=== PATIENT | male | born 1945 | race African-American/Black ===

== ENCOUNTER → 2017-12-13 | Outpatient (CLI) | payer MEDICARE ==
[2017-12-13 13:03] LABS: FREE T4 (FREE THYROXINE) 0.95 ng/dL (0.78-2.19)
[2017-12-13 13:17] LABS: THYROID STIMULATING HORMONE 6.42 uIU/mL (0.47-4.68)
== END ==
LOC: OD 11:52
PROVIDERS: ATTEND Family Medicine
DX: E03.9 Hypothyroidism, unspecified (principal)
CPT/HCPCS: 36415; 84439; 84443

== ENCOUNTER 2018-06-14 11:27 | Emergency (ER) | payer MEDICARE, MEDICAID ==
[2018-06-14] MEDS ORDERED: OXYCODONE-ACETAMINOPHEN 5-325 MG TABLET PO ONE (12:09)
--- NOTE | 2018-06-14 12:10 | ER Document Report ---
ED Medical Screen (RME) - General Chief Complaint: Penile Problem Stated Complaint: PENILE PAIN/SWELLING Time Seen by Provider: 06/14/18 12:08 Notes: 73 years old male presents today with incontinence of urine and swelling of the penile gland for the last few days. No fever chills. On examination-balanitis noted with swelling of the penile gland with ulceration. And also prepuce is edematous, TRAVEL OUTSIDE OF THE [place] IN LAST 30 DAYS: No - Related Data Allergies/Adverse Reactions: No Known Allergies Allergy (Verified 06/14/18 11:27) Past Medical History - Social History Chew tobacco use (# tins/day): No Frequency of alcohol use: None Drug Abuse: None - Past Medical History Cardiac Medical History: Reports: Hx Hypertension Endocrine Medical History: Reports: Hx Diabetes Mellitus Type 2 Renal/ Medical History: Denies: Hx Peritoneal Dialysis Past Surgical History: Reports: Hx Thyroid Surgery - goiter removed Physical Exam - Vital signs Vitals: Temp Pulse Resp BP Pulse Ox 97.7 F 61 20 150/83 H 93 06/14/18 11:38 06/14/18 11:38 06/14/18 11:38 06/14/18 11:38 06/14/18 11:38 Course - Vital Signs Vital signs: Temp Pulse Resp BP Pulse Ox 97.7 F 61 20 150/83 H 93 06/14/18 11:38 06/14/18 11:38 06/14/18 11:38 06/14/18 11:38 06/14/18 11:38 Doctor's Discharge - Discharge Referrals: SHAQ HANCOCK DO [Primary Care Provider] - Follow up as needed
[2018-06-14 13:37] LABS: ABSOLUTE BASOPHILS # (AUTO) 0.1 10^3/uL (0.0-0.2); ABSOLUTE EOSINOPHILS # (AUTO) 0.2 10^3/uL (0.0-0.6); ABSOLUTE LYMPHOCYTES (AUTO) 1.2 10^3/uL (0.5-4.7); ABSOLUTE MONOCYTES (AUTO) 0.4 10^3/uL (0.1-1.4); ABSOLUTE NEUT (AUTO) 5.4 10^3/uL (1.7-8.2); BASOPHILS % (AUTO) 0.8 % (0-2); HEMATOCRIT 44.1 % (37.9-51.0); HEMOGLOBIN 14.6 g/dL (13.5-17.0); MEAN CORPUSCULAR HEMOGLOBIN 28.1 pg (27.0-33.4); MEAN CORPUSCULAR HGB CONC 33.1 g/dL (32.0-36.0); MEAN CORPUSCULAR VOLUME 85 fl (80-97); MONOCYTES % (AUTO) 5.6 % (3-13); PLATELET COUNT 171 10^3/uL (150-450); RED BLOOD COUNT 5.19 10^6/uL (4.35-5.55); RED CELL DISTRIBUTION WIDTH 16.9 % (11.5-14.0); SEGMENTED NEUTROPHILS % (AUTO) 74.6 % (42-78); TOTAL CELLS COUNTED % (AUTO) 100 %; WHITE BLOOD COUNT 7.3 10^3/uL (4.0-10.5)
[2018-06-14 13:52] LABS: ALANINE AMINOTRANSFERASE 52 U/L (21-72); ALBUMIN 3.7 g/dL (3.5-5.0); ALKALINE PHOSPHATASE 146 U/L (38-126); ANION GAP 15 (5-19); ASPARTATE AMINO TRANSFERASE 27 U/L (17-59); BILIRUBIN,DIRECT 0.3 mg/dL (0.0-0.4); BILIRUBIN,TOTAL 0.5 mg/dL (0.2-1.3); BLOOD UREA NITROGEN 35 mg/dL (7-20); CALCIUM 9.2 mg/dL (8.4-10.2); CARBON DIOXIDE 24 mmol/L (22-30); CHLORIDE 104 mmol/L (98-107); GLUCOSE 213 mg/dL (75-110); POTASSIUM 4.1 mmol/L (3.6-5.0); SODIUM 143.3 mmol/L (137-145); TOTAL PROTEIN 7.6 g/dL (6.3-8.2)
[2018-06-14 15:28] LABS: APPEARANCE,URINE CLEAR; BILIRUBIN,URINE NEGATIVE (NEGATIVE); COLOR,URINE YELLOW; GLUCOSE, URINE >=500 mg/dL (NEGATIVE); KETONES,URINE NEGATIVE (NEGATIVE); LEUKOCYTE ESTERASE,URINE NEGATIVE (NEGATIVE); NITRITE,URINE NEGATIVE (NEGATIVE); PROTEIN,URINE 100 mg/dL (NEGATIVE); URINE SPECIFIC GRAVITY 1.021; UROBILINOGEN,URINE NEGATIVE mg/dL (<2.0)
[2018-06-14] MEDS ORDERED: FLUCONAZOLE 100 MG TABLET PO ONE (16:05)
[2018-06-14] MEDS ORDERED: NORMAL SALINE 500 ML IV ONE (16:30)
--- NOTE | 2018-06-14 16:32 | ER Document Report ---
ED General - General Chief Complaint: Penile Problem Stated Complaint: PENILE PAIN/SWELLING Time Seen by Provider: 06/14/18 12:08 TRAVEL OUTSIDE OF THE [place] IN LAST 30 DAYS: No - HPI Patient complains to provider of: Swelling penile pain Notes: Patient has history of diabetes coming in for swelling penile pain and urinary incontinence. Patient currently in the brief. Patient by himself upon my evaluation patient denies any pain at this time. States ongoing for the last 2 days. Denies any fever chills nausea vomiting diarrhea. Denies any trouble urinating. - Related Data Allergies/Adverse Reactions: No Known Allergies Allergy (Verified 06/14/18 11:27) Past Medical History - Social History Smoking Status: Former Smoker Chew tobacco use (# tins/day): No Frequency of alcohol use: None Drug Abuse: None Family History: Reviewed & Not Pertinent Patient has suicidal ideation: No Patient has homicidal ideation: No - Past Medical History Cardiac Medical History: Reports: Hx Hypertension Endocrine Medical History: Reports: Hx Diabetes Mellitus Type 2 Renal/ Medical History: Denies: Hx Peritoneal Dialysis Past Surgical History: Reports: Hx Thyroid Surgery - goiter removed Review of Systems - Review of Systems Constitutional: No symptoms reported EENT: No symptoms reported Cardiovascular: No symptoms reported Respiratory: No symptoms reported Gastrointestinal: No symptoms reported Genitourinary: Other - Penile swelling and pain Male Genitourinary: No symptoms reported Musculoskeletal: No symptoms reported Skin: No symptoms reported Hematologic/Lymphatic: No symptoms reported Neurological/Psychological: No symptoms reported -: Yes All other systems reviewed and negative Physical Exam - Vital signs Vitals: Temp Pulse Resp BP Pulse Ox 97.7 F 61 20 150/83 H 93 06/14/18 11:38 06/14/18 11:38 06/14/18 11:38 06/14/18 11:38 06/14/18 11:38 Interpretation: Normal - General General appearance: Appears well, Alert - HEENT Head: Normocephalic, Atraumatic Eyes: Normal Pupils: PERRL - Respiratory Respiratory status: No respiratory distress Chest status: Nontender Breath sounds: Normal Chest palpation: Normal - Cardiovascular Rhythm: Regular Heart sounds: Normal auscultation Murmur: No - Abdominal Inspection: Normal Distension: No distension Bowel sounds: Normal Tenderness: Nontender Organomegaly: No organomegaly - Genitourinary Notes: Swelling adjacent to the glans of the head of the penis. Patient is circumcised. There is a mild amount of white discharge around the rim of the glans of the penis consistent with a yeast infection balanitis. Cremaster reflex intact bilaterally. There are some excoriations of the skin on the head of the penis - Back Back: Normal, Nontender - Extremities General upper extremity: Normal inspection, Nontender, Normal color, Normal ROM , Normal temperature General lower extremity: Normal inspection, Nontender, Normal color, Normal ROM , Normal temperature, Normal weight bearing. No: Sepideh's sign - Neurological Neuro grossly intact: Yes Cognition: Normal Orientation: AAOx4 [place] Coma Scale Eye Opening: Spontaneous [place] Coma Scale Verbal: Oriented [place] Coma Scale Motor: Obeys Commands [place] Coma Scale Total: 15 Speech: Normal Motor strength normal: LUE, RUE, LLE, RLE Sensory: Normal - Psychological Associated symptoms: Normal affect, Normal mood - Skin Skin Temperature: Warm Skin Moisture: Dry Skin Color: Normal Course - Re-evaluation Re-evalutation: 06/14/18 23:06 Laboratory studies shows increase in the patient's renal function from his last visit here in 2015. Family member at bedside now neurologist patient has a history of renal issues and states that they will follow-up with her primary care physician. Patient examination otherwise consistent with balanitis with swelling. Patient is circumcised no signs of phimosis paraphimosis or any ischemia of the glans of the penis. Patient will be discharged home - Vital Signs Vital signs: Temp Pulse Resp BP Pulse Ox 97.6 F 63 18 183/99 H 100 06/14/18 18:26 06/14/18 18:26 06/14/18 18:26 06/14/18 18:26 06/14/18 18:26 - Laboratory Result Diagrams: 06/14/18 13:17 06/14/18 13:17 Laboratory results interpreted by me: 06/14/18 06/14/18 06/14/18 13:17 13:17 15:00 RDW 16.9 H BUN 35 H Creatinine 2.45 H Est GFR ( Amer) 31 L Est GFR (Non-Af Amer) 26 L Glucose 213 H Alkaline Phosphatase 146 H Urine Protein 100 H Urine Glucose (UA) >=500 H Urine Blood SMALL H Discharge - Discharge Clinical Impression: Balanitis Acute on chronic renal failure Qualifiers: Acute renal failure type: unspecified Chronic kidney disease stage: unspecified stage Qualified Code(s): N17.9 - Acute kidney failure, unspecified Disposition: HOME, SELF-CARE Instructions: Balanitis ([facility]), Kidney Failure ([facility]) Additional Instructions: Please use the cream as prescribed. Will recommend he follow-up with your primary care physician or urologist listed. Return to the ER if he is unable to urinate. Prescriptions: Clotrimazole 1% Topical [Lotrimin 1% Topical Soln 10 ml] 1 applic TP BID #10 ml Referrals: SHAQ HANCOCK DO [Primary Care Provider] - Follow up as needed
[2018-06-14 18:31] VITALS: BP 183/99
== END 2018-06-14 18:34 | disposition home or self-care (01) ==
LOC: ER 11:27
DX: N48.1 Balanitis (principal); E11.22 Type 2 diabetes mellitus with diabetic chronic kidney disease; I12.9 Hypertensive chronic kidney disease with stage 1 through stage 4 chronic kidney disease, or unspecified chronic kidney disease; N18.9 Chronic kidney disease, unspecified; N17.9 Acute kidney failure, unspecified; R32 Unspecified urinary incontinence; Z87.891 Personal history of nicotine dependence
CPT/HCPCS: 99284; 96360; 51701; 36415; 85025; 80053; 81001; A9270 ×2; J7040

== ENCOUNTER 2018-11-06 10:32 | Inpatient (IN) | payer MEDICARE, MEDICAID ==
[2018-11-06 11:00] LABS: INTERNATIONAL RATION (INR) 0.98; PROTHROMBIN TIME 13.5 SEC (11.4-15.4)
--- NOTE | 2018-11-06 11:01 | ER Document Report ---
ED Syncope and Near Syncope - General Chief Complaint: Near Syncope Stated Complaint: SYNCOPE Time Seen by Provider: 11/06/18 10:45 Mode of Arrival: Medic Information source: Patient, Relative Notes: 73-year-old male brought to emergency department by EMS status post syncopal episode. Family states that he was standing up in the bathroom when his head fell forward. His family members were standing by his side and helped him to the ground. They state that he was unresponsive for a few seconds. Patient has a history of dementia. He denies any complaints currently. Patient does not re member the incident. Family deny any complaints prior to the syncopal episode. Family states that over the last 3 days he has not been as talkative as normal. They deny any fever, rhinorrhea, cough, nausea, vomiting, diarrhea, constipation. TRAVEL OUTSIDE OF THE [place] IN LAST 30 DAYS: No - HPI Patient complains to provider of: Fainting Episode witnessed (by whom): Yes Symptoms prior to episode: None Position/Activity at time of episode: Standing Quality of pain: No pain Context: Became unresponsive Injury location: None Current symptoms: None/feels back to normal Similar symptoms previously: No Recently seen / treated by doctor: No - Related Data Allergies/Adverse Reactions: No Known Allergies Allergy (Verified 11/06/18 11:38) Past Medical History - General Information source: Patient, Relative - Social History Smoking Status: Former Smoker Family History: Reviewed & Not Pertinent - Past Medical History Cardiac Medical History: Reports: Hx Hypertension Endocrine Medical History: Reports: Hx Diabetes Mellitus Type 2 Renal/ Medical History: Denies: Hx Peritoneal Dialysis Past Surgical History: Reports: Hx Thyroid Surgery - goiter removed Review of Systems - Review of Systems Constitutional: No symptoms reported EENT: No symptoms reported Cardiovascular: Syncope Respiratory: No symptoms reported Gastrointestinal: No symptoms reported Genitourinary: No symptoms reported Musculoskeletal: No symptoms reported Skin: No symptoms reported Neurological/Psychological: Lost consciousness -: Yes All other systems reviewed and negative Physical Exam - Vital signs Vitals: Temp Resp 97.8 F 18 11/06/18 10:53 11/06/18 10:53 - Notes Notes: PHYSICAL EXAMINATION: GENERAL: Well-appearing, well-nourished and in no acute distress. HEAD: Atraumatic, pleasantly demented. EYES: Pupils equal round and reactive to light, extraocular movements intact, sclera anicteric, conjunctiva are normal. ENT: Nares patent, oropharynx clear without exudates. Moist mucous membranes. NECK: Normal range of motion, supple without lymphadenopathy. No hematoma appreciated. LUNGS: Breath sounds clear to auscultation bilaterally and equal. No wheezes rales or rhonchi. HEART: Irregular. S1S2. ABDOMEN: Soft, nontender, nondistended abdomen. No guarding, no rebound. No masses appreciated. Musculoskeletal: Normal range of motion, no pitting or edema. No cyanosis. NEUROLOGICAL: Cranial nerves grossly intact. Normal speech. Normal sensory, motor exams PSYCH: Normal mood, normal affect. SKIN: Warm, Dry, normal turgor, no rashes or lesions noted. Course - Re-evaluation Re-evalutation: 11/06/18 11:01 EKG: Ventricular rate 67, QRS duration 94, QTc 503, atrial fibrillation. 11/06/18 19:23 Labs and imaging obtained. Head CT does not show an acute process. Patient's EKG shows atrial fibrillation. I asked family if there was a history of atrial fibrillation and they deny it. No previous EKGs to compare with. Troponin is 0.048. No previous values to compare this value with. Creatinine is elevated at 2.67. Slightly elevated from previous. Last value is 2.45. I contacted the history for admission for new onset atrial fibrillation. Dr. Gonzales accepts admission. 11/06/18 19:24 - Vital Signs Vital signs: Temp Pulse Resp BP Pulse Ox 97.7 F 50 L 18 130/81 H 99 11/06/18 16:04 11/06/18 17:40 11/06/18 16:02 11/06/18 16:04 11/06/18 16:02 - Laboratory Result Diagrams: 11/06/18 10:21 11/06/18 10:21 Laboratory results interpreted by me: 11/06/18 11/06/18 11/06/18 10:21 10:21 12:24 RDW 14.1 H BUN 37 H Creatinine 2.67 H Est GFR ( Amer) 28 L Est GFR (Non-Af Amer) 23 L Glucose 122 H ALT 20 L Urine Protein 100 H Urine Glucose (UA) >=500 H Discharge - Discharge Clinical Impression: Syncope Qualifiers: Syncope type: unspecified Qualified Code(s): R55 - Syncope and collapse Atrial fibrillation Qualifiers: Atrial fibrillation type: unspecified Qualified Code(s): I48.91 - Unspecified atrial fibrillation Condition: Stable Disposition: ADMITTED OBSERVATION Admitting Provider: Hospitalist Unit Admitted: Telemetry
[2018-11-06 11:13] LABS: ABSOLUTE EOSINOPHILS # (AUTO) 0.2 10^3/uL (0.0-0.6); ABSOLUTE LYMPHOCYTES (AUTO) 1.9 10^3/uL (0.5-4.7); ABSOLUTE MONOCYTES (AUTO) 0.6 10^3/uL (0.1-1.4); BASOPHILS % (AUTO) 0.6 % (0-2); EOSINOPHILS % (AUTO) 3.1 % (0-6); HEMOGLOBIN 15.7 g/dL (13.5-17.0); LYMPHOCYTES % (AUTO) 24.9 % (13-45); MEAN CORPUSCULAR HEMOGLOBIN 28.6 pg (27.0-33.4); MEAN CORPUSCULAR HGB CONC 33.5 g/dL (32.0-36.0); MEAN CORPUSCULAR VOLUME 85 fl (80-97); MONOCYTES % (AUTO) 7.5 % (3-13); PLATELET COUNT 192 10^3/uL (150-450); RED BLOOD COUNT 5.51 10^6/uL (4.35-5.55); RED CELL DISTRIBUTION WIDTH 14.1 % (11.5-14.0); SEGMENTED NEUTROPHILS % (AUTO) 63.9 % (42-78); TOTAL CELLS COUNTED % (AUTO) 100 %; WHITE BLOOD COUNT 7.8 10^3/uL (4.0-10.5)
[2018-11-06 11:14] LABS: ALANINE AMINOTRANSFERASE 20 U/L (21-72); ALBUMIN 3.6 g/dL (3.5-5.0); ALKALINE PHOSPHATASE 74 U/L (38-126); ANION GAP 13 (5-19); ASPARTATE AMINO TRANSFERASE 20 U/L (17-59); BILIRUBIN,DIRECT 0.2 mg/dL (0.0-0.4); BILIRUBIN,TOTAL 0.9 mg/dL (0.2-1.3); BLOOD UREA NITROGEN 37 mg/dL (7-20); CALCIUM 9.6 mg/dL (8.4-10.2); CARBON DIOXIDE 24 mmol/L (22-30); CHLORIDE 104 mmol/L (98-107); CREATINE KINASE 101 U/L (55-170); GLUCOSE 122 mg/dL (75-110); POTASSIUM 4.2 mmol/L (3.6-5.0); SODIUM 141.2 mmol/L (137-145); TOTAL PROTEIN 7.1 g/dL (6.3-8.2)
[2018-11-06 11:26] LABS: CREATINE KINASE MB 1.8 ng/mL (<4.55)
[2018-11-06 11:28] LABS: TROPONIN I 0.048 ng/mL
--- NOTE | 2018-11-06 11:52 | RADIOLOGY REPORT (SQ) ---
EXAM DESCRIPTION: CT HEAD WITHOUT COMPLETED DATE/TIME: 11/06/2018 11:35 am REASON FOR STUDY: confusion COMPARISON: None. TECHNIQUE: Axial images acquired through the brain without intravenous contrast. Images reviewed wi th bone, brain and subdural windows. Additional sagittal and coronal reconstructions were generated. Images stored on PACS. All CT scanners at this facility use dose modulation, iterative reconstruction, and/or weight based d osing when appropriate to reduce radiation dose to as low as reasonably achievable (ALARA). [facility]: Dose Right [facility]: CareDose [facility]: Dose Right [facility]: Teradose 4D [facility]: Ignyta RADIATION DOSE: CT Rad equipment meets quality standard of care and radiation dose reduction techniq ues were employed. CTDIvol: 53.2 mGy. DLP: 1044 mGy-cm. mGy. LIMITATIONS: None. FINDINGS: VENTRICLES: Normal size and contour. CEREBRUM: No masses. No hemorrhage. No midline shift. No evidence for acute infarction. Extensive areas of low density in the white matter most likely chronic small vessel ischemic changes. CEREBELLUM: No masses. No hemorrhage. No alteration of density. No evidence for acute infarction. EXTRAAXIAL SPACES: No fluid collections. No masses. ORBITS AND GLOBE: No intra- or extraconal masses. Normal contour of globe without masses. CALVARIUM: No fracture. PARANASAL SINUSES: No fluid or mucosal thickening. SOFT TISSUES: Possible soft tissue hematoma of the partially imaged posterior neck. OTHER: No other significant finding. IMPRESSION: 1. No acute intracranial pathology. Small vessel white matter disease. 2. Possible soft tissue hematoma or other subcutaneous abnormality of the partially imaged posterior neck. Correlate with physical examination. EVIDENCE OF ACUTE STROKE: NO. COMMENT: Quality ID # [id number]: Final reports with documentation of one or more dose reduction techniques (e.g., Automated exposure control, adjustment of the mA and/or kV according to patient size, use of iterative reconstruction technique) TECHNICAL DOCUMENTATION: JOB ID: [id number] [employer]- All Rights Reserved Reading location - IP/workstation name: [email or web address]
--- NOTE | 2018-11-06 11:53 | RADIOLOGY REPORT (SQ) ---
EXAM DESCRIPTION: CHEST SINGLE VIEW COMPLETED DATE/TIME: 11/06/2018 11:41 am REASON FOR STUDY: syncope COMPARISON: None. EXAM PARAMETERS: NUMBER OF VIEWS: One view. TECHNIQUE: Single frontal radiographic view of the chest acquired. RADIATION DOSE: NA LIMITATIONS: None. FINDINGS: LUNGS AND PLEURA: No opacities, masses or pneumothorax. No pleural effusion. MEDIASTINUM AND HILAR STRUCTURES: No masses. Contour normal. HEART AND VASCULAR STRUCTURES: Cardiomegaly. BONES: No acute findings. HARDWARE: None in the chest. OTHER: No other significant finding. IMPRESSION: Cardiomegaly without acute abnormality of the lungs in AP projection. TECHNICAL DOCUMENTATION: JOB ID: [id number] [employer]- All Rights Reserved Reading location - IP/workstation name: [email or web address]
[2018-11-06] MEDS ORDERED: NORMAL SALINE 500 ML IV ONE (11:59)
[2018-11-06 13:03] LABS: APPEARANCE,URINE CLEAR; BILIRUBIN,URINE NEGATIVE (NEGATIVE); COLOR,URINE YELLOW; GLUCOSE, URINE >=500 mg/dL (NEGATIVE); KETONES,URINE NEGATIVE (NEGATIVE); LEUKOCYTE ESTERASE,URINE NEGATIVE (NEGATIVE); NITRITE,URINE NEGATIVE (NEGATIVE); PROTEIN,URINE 100 mg/dL (NEGATIVE); URINE SPECIFIC GRAVITY 1.017; UROBILINOGEN,URINE NEGATIVE mg/dL (<2.0)
--- NOTE | 2018-11-06 14:51 | PDOC H&P ---
History of Present Illness Admission Date/PCP: SHAQ HANCOCK DO History of Present Illness: RICHARD YATES JR is a 73 year old male with a history of dementia who was brought from home by his family. The patient is demented and is unable to provide any kind of history whatsoever. His family was not there so everything I know about him comes from the report from the ER provider over the phone and when I am able to read from the chart. Apparently they were helping him stand up from the commode when his head "flopped forward" and it seems like he almost passed out for a second but he promptly got back to normal. By report, he has been previously what is considered normal for him. His head CT in the ER was unremarkable. He had a couple of EKGs that did not have very good tracings but were suspicious for atrial fibrillation. On the medical manager at the bedside his tracing would clear up periodically and it did appear to be atrial fibrillation with a rate in the 50s while he was asleep and in the 60s-80s while he was awake. Apparently this is a new finding for him. Past Medical History Cardiac Medical History: Reports: Hypertension Endocrine Medical History: Reports: Diabetes Mellitus Type 2 Social History Smoking Status: Former Smoker Family History Family History: Reviewed & Not Pertinent Parental Family History Reviewed: No - Unable to obtain Children Family History Reviewed: No - Unable to obtain Sibling(s) Family History Reviewed.: No - Unable to obtain Medication/Allergy Home Medications: Clotrimazole 1% Topical [Lotrimin 1% Topical Soln 10 ml] 1 applic TP BID #10 ml 06/14/18 Allergies/Adverse Reactions: No Known Allergies Allergy (Verified 11/06/18 11:38) Review of Systems ROS unobtainable: Due to mental status Physical Exam Vital Signs: Temp Pulse Resp BP Pulse Ox 97.7 F 18 179/108 H 97 11/06/18 11:37 11/06/18 12:13 11/06/18 12:13 11/06/18 12:01 Intake & Output 11/05/18 11/06/18 11/07/18 06:59 06:59 06:59 Weight 91.9 kg General appearance: PRESENT: no acute distress, cooperative, disheveled Head exam: PRESENT: atraumatic, normocephalic Eye exam: PRESENT: EOMI, PERRLA. ABSENT: conjunctival injection, nystagmus, scleral icterus Ear exam: PRESENT: normal external ear exam Mouth exam: PRESENT: moist, neck supple Throat exam: ABSENT: post pharyngeal erythema Neck exam: PRESENT: full ROM. ABSENT: carotid bruit, JVD, lymphadenopathy, meningismus, tenderness, thyromegaly Respiratory exam: PRESENT: clear to auscultation real, symmetrical, unlabored. ABSENT: accessory muscle use, crackles, prolonged expiratory phas, rhonchi, tachypnea, wheezes Cardiovascular exam: PRESENT: irregular rhythm Vascular exam: PRESENT: normal capillary refill GI/Abdominal exam: PRESENT: normal bowel sounds, soft. ABSENT: distended, guarding, rebound, tenderness Extremities exam: ABSENT: clubbing, pedal edema Musculoskeletal exam: PRESENT: normal inspection. ABSENT: deformity Neurological exam: PRESENT: alert, awake, oriented to person, CN II-XII grossly intact - I could not get him to comply with all aspects of the examination because of his mental status, but he did not have any discernible focal deficits. ABSENT: oriented to place, oriented to time, oriented to situation, motor sensory deficit Psychiatric exam: PRESENT: flat affect Skin exam: ABSENT: dry, warm Results Laboratory Results: 11/06/18 10:21 11/06/18 10:21 11/06/18 11/06/18 11/06/18 10:21 10:21 12:24 WBC 7.8 RBC 5.51 Hgb 15.7 Hct 47.0 MCV 85 MCH 28.6 MCHC 33.5 RDW 14.1 H Plt Count 192 Seg Neutrophils % 63.9 Lymphocytes % 24.9 Monocytes % 7.5 Eosinophils % 3.1 Basophils % 0.6 Absolute Neutrophils 5.0 Absolute Lymphocytes 1.9 Absolute Monocytes 0.6 Absolute Eosinophils 0.2 Absolute Basophils 0.0 Sodium 141.2 Potassium 4.2 Chloride 104 Carbon Dioxide 24 Anion Gap 13 BUN 37 H Creatinine 2.67 H Est GFR ( Amer) 28 L Est GFR (Non-Af Amer) 23 L Glucose 122 H Calcium 9.6 Total Bilirubin 0.9 AST 20 ALT 20 L Alkaline Phosphatase 74 Total Protein 7.1 Albumin 3.6 Urine Color YELLOW Urine Appearance CLEAR Urine pH 5.0 Ur Specific Watson 1.017 Urine Protein 100 H Urine Glucose (UA) >=500 H Urine Ketones NEGATIVE Urine Blood NEGATIVE Urine Nitrite NEGATIVE Ur Leukocyte Esterase NEGATIVE Urine WBC (Auto) 1 Urine RBC (Auto) 0 11/06/18 11/06/18 10:21 10:21 Creatine Kinase 101 CK-MB (CK-2) 1.80 Troponin I 0.048 Impressions: Chest X-Ray 11/06/18 10:51 IMPRESSION: Cardiomegaly without acute abnormality of the lungs in AP projection. Head CT 11/06/18 10:51 IMPRESSION: 1. No acute intracranial pathology. Small vessel white matter disease. 2. Possible soft tissue hematoma or other subcutaneous abnormality of the partially imaged posterior neck. Correlate with physical examination. EVIDENCE OF ACUTE STROKE: NO. Assessment & Plan - Diagnosis (1) Syncope Qualifiers: Syncope type: unspecified Qualified Code(s): R55 - Syncope and collapse Is this a current diagnosis for this admission?: Yes Plan: His history sounds like orthostatic hypotension. We will check orthostatics on him. I will also order an echocardiogram. We will keep him on a medical manager overnight. (2) Atrial fibrillation Qualifiers: Atrial fibrillation type: unspecified Qualified Code(s): I48.91 - Unsp ecified atrial fibrillation Is this a current diagnosis for this admission?: Yes Plan: Apparently this is a new finding for him. I do not have any prior EKGs to compare it to. We will try to get his medication list to see if that has any clues. Currently his rate is in the normal range and so he does not have any need for any sort of rate controlling measures. Echocardiogram is pending. - Time Time Spent: 50 to 70 Minutes
--- NOTE | 2018-11-06 16:37 | EKG REPORT ---
SEVERITY:- ABNORMAL ECG - LAD, CONSIDER LEFT ANTERIOR FASCICULAR BLOCK BORDERLINE PROLONGED QT INTERVAL SINUS RHYTHM FIRST DEGREE AV BLOCK : Confirmed by: Sonja Terry MD 06-Nov-2018 16:36:19
--- NOTE | 2018-11-06 16:38 | EKG REPORT ---
SEVERITY:- DEFECTIVE ECG - LEFT ANTERIOR FASCICULAR BLOCK PROLONGED QT INTERVAL BASELINE ARTIFACT.PROBABLE FIRST DEGREE AV BLOCK.REPEAT EKG : Confirmed by: Sonja eTrry MD 06-Nov-2018 16:37:33
[2018-11-06] MEDS: HEPARIN SOD (PORCINE) 5,000 UNIT/ML 1 ML SYRINGE SUBCUT SCH (22:57)
[2018-11-07] MEDS: HEPARIN SOD (PORCINE) 5,000 UNIT/ML 1 ML SYRINGE SUBCUT SCH ×3 (06:40→23:21)
[2018-11-07 07:46] LABS: ANION GAP 10 (5-19); BLOOD UREA NITROGEN 33 mg/dL (7-20); CARBON DIOXIDE 22 mmol/L (22-30); CHLORIDE 108 mmol/L (98-107); GLUCOSE 89 mg/dL (75-110); POTASSIUM 4.5 mmol/L (3.6-5.0); SODIUM 139.5 mmol/L (137-145)
[2018-11-07] MEDS ORDERED: DEXTROSE 40% GEL 15 GM TUBE PO PRN ×2 (12:21)
[2018-11-07] MEDS ORDERED: DEXTROSE 50%-WATER 25 GM/50 ML DISP.SYRIN IV PRN ×2 (12:21)
[2018-11-07] MEDS ORDERED: GLUCAGON,HUMAN RECOMB 1 MG INJ IM PRN (12:21)
--- NOTE | 2018-11-07 12:37 | XCELERA REPORT ---
[address] [address] Transthoracic Echocardiogram Report Name: RICHARD YATES JR Age: 73 yrs Gender: Male : 1945 Patient Status: Inpatient Patient Location: [address] [place] [address] Study Date: 11/06/2018 05:01 PM Height: 73 in Weight: 202 lb BSA: 2.2 m2 Procedure: A two-dimensional transthoracic echocardiogram with color flow and Doppler was performed. Study Quality: Fair. Reason For Study: syncope, new arrhythmia History: syncope, new arrhythmia. Ordering Physician: RITCHIE LANGFORD Performed By: Dolores Reed Interpretation Summary The left ventricle is normal in size. There is mild concentric left ventricular hypertrophy. LV EF is 65% Left ventricular systolic function is normal. The left ventricular wall motion is normal. LV diastolic function could not be adequately assessed due to atrial fibrilation. There is no thrombus. The right ventricle is normal in size and function. The right atrium is normal. The left atrial size is normal. There is no evidence of mitral valve prolapse. There is no vegetation seen on the mitral valve. There is mild mitral stenosis There is a moderate amount of mitral regurgitation There is no aortic valvular vegetation. There is no aortic valve stenosis There is no LVOT obstruction. There is aortic sclerosis without aortic stenosis. No aortic regurgitation is present. There is no tricuspid stenosis. There is a trace amount of tricuspid regurgitation Unable to calculate RVSP due lack of TR jet. There is no pulmonic valvular stenosis. There is no pulmonic valvular regurgitation. There is no pericardial effusion. MMode/2D Measurements & Calculations RVDd: 2.7 cm LVIDd: 5.5 cm FS: 36.3 % Ao root diam: 3.0 cm IVSd: 1.3 cm LVIDs: 3.5 cm EDV(Teich): 144.5 ml Ao root area: 7.2 cm2 LVPWd: 1.0 cm ESV(Teich): 49.9 ml LA dimension: 3.8 cm EF(Teich): 65.5 % Doppler Measurements & Calculations MV E max kayla: MV P1/2t max kayla: Ao V2 max: LV V1 max P.0 cm/sec 257.9 cm/sec 107.2 cm/sec 2.9 mmHg MV P1/2t: 75.1 msec Ao max P.6 mmHg LV V1 max: MVA(P1/2t): 2.9 cm2 85.4 cm/sec MV dec slope: 1005 cm/sec2 MV dec time: 0.19 sec TV V2 max: PA V2 max: MV P1/2t-pr_phl: 78.7 cm/sec 132.0 cm/sec 75.1 msec TV max P.5 mmHg PA max P.0 mmHg Left Ventricle The left ventricle is normal in size. There is mild concentric left ventricular hypertrophy. LV EF is 65%. Left ventricular systolic function is normal. LV diastolic function could not be adequately assessed due to atrial fibrilation. The left ventricular wall motion is normal. There is no thrombus. Right Ventricle The right ventricle is normal in size and function. Atria The right atrium is normal. The left atrial size is normal. Mitral Valve There is mild to moderate mitral annular calcification. There is no evidence of mitral valve prolapse. There is no vegetation seen on the mitral valve. There is mild mitral stenosis. There is a moderate amount of mitral regurgitation. Aortic Valve There is no aortic valvular vegetation. There is no aortic valve stenosis. There is no LVOT obstruction. There is aortic sclerosis without aortic stenosis. No aortic regurgitation is present. Tricuspid Valve There is no tricuspid stenosis. There is a trace amount of tricuspid regurgitation. Unable to calculate RVSP due lack of TR jet. Pulmonic Valve There is no pulmonic valvular stenosis. There is no pulmonic valvular regurgitation. Effusions There is no pericardial effusion. : RITCHIE LANGFORD > Sonja Terry
[2018-11-07 13:21] LABS: FREE T4 (FREE THYROXINE) 0.53 ng/dL (0.78-2.19)
[2018-11-07 13:37] LABS: THYROID STIMULATING HORMONE 53.6 uIU/mL (0.47-4.68)
[2018-11-07] MEDS: LISINOPRIL 10 MG TABLET PO SCH (13:42)
--- NOTE | 2018-11-07 14:21 | EKG REPORT ---
SEVERITY:- ABNORMAL ECG - LAD, CONSIDER LEFT ANTERIOR FASCICULAR BLOCK PROLONGED QT INTERVAL FIRST DEGREE AV BLOCK PROBABLE MOBITZ TYOE 1 SOHEILA : Confirmed by: Sonja Terry MD 07-Nov-2018 14:20:51
--- NOTE | 2018-11-07 17:49 | PDOC PROGRESS REPORT ---
Subjective Progress Note for:: 11/07/18 Subjective:: No adverse events overnight. His heart rate dropped a little bit when he is asleep but it comes back up when he wakes up. We checked his orthostatic vital signs and they were very positive. Reason For Visit: SYNCOPE Physical Exam Vital Signs: Temp Pulse Resp BP Pulse Ox 98.1 F 54 L 16 154/64 H 95 11/07/18 16:00 11/07/18 16:00 11/07/18 16:00 11/07/18 16:00 11/07/18 16:00 Intake & Output 11/06/18 11/07/18 11/08/18 06:59 06:59 06:59 Intake Total 914 384 Balance 914 384 Weight 73 kg General appearance: PRESENT: no acute distress, cooperative, disheveled Respiratory exam: PRESENT: clear to auscultation real, symmetrical, unlabored. ABSENT: accessory muscle use, crackles, rhonchi, tachypnea, wheezes Cardiovascular exam: PRESENT: irregular rhythm Vascular exam: PRESENT: normal capillary refill GI/Abdominal exam: PRESENT: normal bowel sounds, soft. ABSENT: distended, guarding, rebound, tenderness Extremities exam: ABSENT: clubbing, pedal edema Musculoskeletal exam: PRESENT: normal inspection. ABSENT: deformity Neurological exam: PRESENT: alert, awake, oriented to person. ABSENT: oriented to place, oriented to time, oriented to situation Psychiatric exam: PRESENT: flat affect Skin exam: PRESENT: dry, warm Results Laboratory Results: 11/06/18 10:21 11/07/18 06:48 11/07/18 11/07/18 06:48 06:48 Sodium 139.5 Potassium 4.5 Chloride 108 H Carbon Dioxide 22 Anion Gap 10 BUN 33 H Creatinine 2.52 H Est GFR ( Amer) 30 L Est GFR (Non-Af Amer) 25 L Glucose 89 Calcium 9.0 Magnesium 2.1 TSH 53.60 H Free T4 0.53 L 11/06/18 11/06/18 10:21 10:21 Creatine Kinase 101 CK-MB (CK-2) 1.80 Troponin I 0.048 Impressions: Chest X-Ray 11/06/18 10:51 IMPRESSION: Cardiomegaly without acute abnormality of the lungs in AP projection. Head CT 11/06/18 10:51 IMPRESSION: 1. No acute intracranial pathology. Small vessel white matter disease. 2. Possible soft tissue hematoma or other subcutaneous abnormality of the partially imaged posterior neck. Correlate with physical examination. EVIDENCE OF ACUTE STROKE: NO. Assessment & Plan - Diagnosis (1) Syncope Qualifiers: Syncope type: unspecified Qualified Code(s): R55 - Syncope and collapse Is this a current diagnosis for this admission?: Yes Plan: Due to orthostatic hypotension. He is not on any medications that would cause it, such probably autonomic instability. We will have to men's swim coach his family on caution with position changes. (2) Atrial fibrillation Qualifiers: Atrial fibrillation type: unspecified Qualified Code(s): I48.91 - Unspecified atrial fibrillation Is this a current diagnosis for this admission?: Yes Plan: Stable on the monitor without need for rate controlling agent. Cardiology is been consulted. Echo is pending. - Time Time Spent with patient: 15-24 minutes
[2018-11-07] MEDS ORDERED: LEVOTHYROXINE SODIUM INJ/PF 0.5 MG SDV IV ONE (22:11)
[2018-11-07] MEDS: METHYLPREDNISOLONE INJ 125 MG/2 ML SDV IV SCH (23:21)
[2018-11-08] MEDS ORDERED: LEVOTHYROXINE SODIUM 0.1 MG TABLET PO ONE (01:00)
[2018-11-08] MEDS: LEVOTHYROXINE SODIUM 0.025 MG TABLET PO SCH (06:00)
[2018-11-08] MEDS: METHYLPREDNISOLONE INJ 125 MG/2 ML SDV IV SCH ×2 (06:00→13:38)
[2018-11-08] MEDS: HEPARIN SOD (PORCINE) 5,000 UNIT/ML 1 ML SYRINGE SUBCUT SCH ×3 (06:00→21:42)
[2018-11-08] MEDS ORDERED: (PENDING PHARMACY ID) (Levothyroxine Sodium [Levothyroxine Sodium] 137 MCG) PO SCH (06:00)
[2018-11-08] MEDS: LEVOTHYROXINE SODIUM 0.112 MG TABLET PO SCH (06:01)
[2018-11-08 06:30] LABS: ANION GAP 12 (5-19); BLOOD UREA NITROGEN 34 mg/dL (7-20); CALCIUM 9.4 mg/dL (8.4-10.2); CARBON DIOXIDE 22 mmol/L (22-30); CHLORIDE 106 mmol/L (98-107); GLUCOSE 168 mg/dL (75-110); POTASSIUM 5.4 mmol/L (3.6-5.0); SODIUM 139.9 mmol/L (137-145)
[2018-11-08] MEDS: LISINOPRIL 10 MG TABLET PO SCH (09:49)
[2018-11-08] MEDS: INSULIN LISPRO 100 UNIT/ML 3 ML VIAL SUBCUT PRN ×3 (12:01→21:45)
[2018-11-08] MEDS ORDERED: LEVOTHYROXINE SODIUM INJ/PF 0.5 MG SDV IV ONE (13:00)
--- NOTE | 2018-11-08 15:14 | PDOC PROGRESS REPORT ---
Subjective Progress Note for:: 11/08/18 Subjective:: 11/08/2018 patient has episodes of bradycardia from his last night. His TSH is 50. He got to 100 mcg of levothyroxine IV yesterday he is going to get another dose of 200 mcg of IV levothyroxine and I started him on a 75 mcg of p.o. levothyroxine from tomorrow. We are going to check TSH on regular basis. As per the cardiology recommendation I started him on Solu-Medrol to help increase heart rate. Heart rate in the 50s now. Denies any problems. Asymptomatic Reason For Visit: SYNCOPE Physical Exam Vital Signs: Temp Pulse Resp BP Pulse Ox 98.1 F 73 18 162/76 H 100 11/08/18 12:00 11/08/18 12:00 11/08/18 12:00 11/08/18 12:00 11/08/18 12:00 Intake & Output 11/07/18 11/08/18 11/09/18 06:59 06:59 06:59 Intake Total 914 850 Balance 914 850 Weight 73 kg 73.1 kg General appearance: PRESENT: no acute distress Head exam: PRESENT: atraumatic Eye exam: PRESENT: PERRLA Mouth exam: PRESENT: moist Neck exam: ABSENT: carotid bruit, JVD, lymphadenopathy, thyromegaly Respiratory exam: PRESENT: clear to auscultation real. ABSENT: rales, rhonchi, wheezes Cardiovascular exam: PRESENT: bradycardia, RRR. ABSENT: diastolic murmur, rubs, systolic murmur GI/Abdominal exam: PRESENT: normal bowel sounds, soft. ABSENT: distended, guard ing, mass, organolmegaly, rebound, tenderness Neurological exam: PRESENT: alert, awake, oriented to person, oriented to place, oriented to time, oriented to situation, CN II-XII grossly intact. ABSENT: motor sensory deficit Psychiatric exam: PRESENT: appropriate affect, normal mood. ABSENT: homicidal ideation, suicidal ideation Results Laboratory Results: 11/06/18 10:21 11/08/18 05:17 11/08/18 11/08/18 05:17 05:17 Sodium 139.9 Potassium 5.4 H Chloride 106 Carbon Dioxide 22 Anion Gap 12 BUN 34 H Creatinine 2.59 H Est GFR ( Amer) 29 L Est GFR (Non-Af Amer) 24 L Glucose 168 H Calcium 9.4 TSH 34.30 H 11/06/18 12:24 Catheterized Urine Urine Culture - Final NO GROWTH 2 DAYS 11/06/18 11/06/18 10:21 10:21 Creatine Kinase 101 CK-MB (CK-2) 1.80 Troponin I 0.048 Impressions: Chest X-Ray 11/06/18 10:51 IMPRESSION: Cardiomegaly without acute abnormality of the lungs in AP projection. Head CT 11/06/18 10:51 IMPRESSION: 1. No acute intracranial pathology. Small vessel white matter disease. 2. Possible soft tissue hematoma or other subcutaneous abnormality of the partially imaged posterior neck. Correlate with physical examination. EVIDENCE OF ACUTE STROKE: NO. Assessment & Plan - Diagnosis (1) Syncope Qualifiers: Syncope type: unspecified Qualified Code(s): R55 - Syncope and collapse Is this a current diagnosis for this admission?: Yes Plan: Due to orthostatic hypotension. He is not on any medications that would cause it, such probably autonomic instability. We will have to fitness coach his family on caution with position changes. 11/08/2018. Patient's blood pressure is 146/84. He is not any medications. Probably secondary to autonomic dysfunction. Plan is to continue to closely monitor the blood pressure. (2) Atrial fibrillation Qualifiers: Atrial fibrillation type: unspecified Qualified Code(s): I48.91 - Unspecified atrial fibrillation Is this a current diagnosis for this admission?: Yes Plan: 11/08/2018-atrial fibrillation is stable. It is bradycardic probably secondary to hypothyroidism. Patient is on levothyroxine supplementation. Plan is to continue to monitor the heart rate. (3) Dementia Is this a current diagnosis for this admission?: Yes Plan: 11/08/2018-patient has advanced dementia and on donezapril . - Time Time Spent with patient: 15-24 minutes Medications reviewed and adjusted accordingly: Yes Anticipated discharge: Home
--- NOTE | 2018-11-08 17:25 | EKG REPORT ---
SEVERITY:- ABNORMAL ECG - SINUS BRADYCARDIA FIRST DEGREE AV BLOCK LAD, CONSIDER LEFT ANTERIOR FASCICULAR BLOCK : Confirmed by: Sonja Terry MD 08-Nov-2018 17:24:43
[2018-11-08] MEDS ORDERED: HYDRALAZINE HCL 50 MG TABLET PO ONE (19:00)
[2018-11-08] MEDS: METHYLPREDNISOLONE INJ 40 MG/1 ML SDV IV SCH (21:42)
[2018-11-09] MEDS: HYDRALAZINE HCL INJ/PF 20 MG/1 ML SDV IV PRN (00:55)
[2018-11-09 05:06] LABS: HEMATOCRIT 43.8 % (37.9-51.0); HEMOGLOBIN 14.6 g/dL (13.5-17.0); MEAN CORPUSCULAR HEMOGLOBIN 28.1 pg (27.0-33.4); MEAN CORPUSCULAR HGB CONC 33.3 g/dL (32.0-36.0); MEAN CORPUSCULAR VOLUME 84 fl (80-97); PLATELET COUNT 180 10^3/uL (150-450); RED BLOOD COUNT 5.18 10^6/uL (4.35-5.55); RED CELL DISTRIBUTION WIDTH 13.8 % (11.5-14.0)
[2018-11-09 05:19] LABS: WHITE BLOOD COUNT 18.3 10^3/uL (4.0-10.5)
[2018-11-09 05:26] LABS: ALANINE AMINOTRANSFERASE 19 U/L (21-72); ALBUMIN 3.5 g/dL (3.5-5.0); ALKALINE PHOSPHATASE 78 U/L (38-126); ANION GAP 15 (5-19); ASPARTATE AMINO TRANSFERASE 22 U/L (17-59); BILIRUBIN,DIRECT 0.3 mg/dL (0.0-0.4); BILIRUBIN,TOTAL 0.5 mg/dL (0.2-1.3); BLOOD UREA NITROGEN 42 mg/dL (7-20); CALCIUM 9.6 mg/dL (8.4-10.2); CARBON DIOXIDE 20 mmol/L (22-30); CHLORIDE 106 mmol/L (98-107); GLUCOSE 190 mg/dL (75-110); POTASSIUM 4.7 mmol/L (3.6-5.0); SODIUM 140.9 mmol/L (137-145); TOTAL PROTEIN 7.2 g/dL (6.3-8.2)
[2018-11-09 05:30] LABS: ABSOLUTE LYMPHOCYTES# (MANUAL) 0.7 10^3/uL (0.5-4.7); ABSOLUTE MONOCYTES # (MANUAL) 0.4 10^3/uL (0.1-1.4); ABSOLUTE NEUTROPHILS# (MANUAL) 17.2 10^3/uL (1.7-8.2); BASOPHILS % (MANUAL) 0 % (0-2); BURR CELLS 1+; EOSINOPHILS % (MANUAL) 0 % (0-6); LYMPHOCYTES % (MANUAL) 4 % (13-45); MONOCYTES % (MANUAL) 2 % (3-13); PLATELET COMMENT ADEQUATE; POIKILOCYTOSIS 1+; SCHISTOCYTES SLIGHT; SEGMENTED NEUTROPHILS % (MAN) 94 % (42-78); TEAR DROP CELLS 1+; TOTAL CELLS COUNTED 100; TOXIC GRANULATION SLIGHT; TOXIC VACUOLATION PRESENT
[2018-11-09 05:31] LABS: PLATELET GIANT PRESENT; PLATELET LARGE PRESENT
[2018-11-09] MEDS: HEPARIN SOD (PORCINE) 5,000 UNIT/ML 1 ML SYRINGE SUBCUT SCH ×3 (05:38→23:14)
[2018-11-09] MEDS: LEVOTHYROXINE SODIUM 0.025 MG TABLET PO SCH (05:38)
[2018-11-09] MEDS: LEVOTHYROXINE SODIUM 0.112 MG TABLET PO SCH (05:38)
[2018-11-09] MEDS ORDERED: LEVOTHYROXINE SODIUM 0.075 MG TABLET PO SCH (06:00)
[2018-11-09] MEDS: INSULIN LISPRO 100 UNIT/ML 3 ML VIAL SUBCUT PRN ×2 (08:15→23:15)
[2018-11-09] MEDS ORDERED: (PENDING PHARMACY ID) (Donepezil Hcl [Aricept] 10 MG) PO SCH (10:00)
[2018-11-09] MEDS ORDERED: DONEPEZIL HCL 5 MG TABLET PO SCH (10:00)
[2018-11-09] MEDS: LISINOPRIL 10 MG TABLET PO SCH (10:43)
[2018-11-09] MEDS: METHYLPREDNISOLONE INJ 40 MG/1 ML SDV IV SCH ×2 (10:43→23:14)
[2018-11-09] MEDS: GLIMEPIRIDE 4 MG TABLET PO SCH (10:43)
--- NOTE | 2018-11-09 19:02 | PDOC PROGRESS REPORT ---
Subjective Progress Note for:: 11/09/18 Subjective:: This is 73 years old black male patient with history of dementia brought with chief complaint of weakness and possible syncope. Patient found to have symptomatic bradycardia due to uncontrolled hypothyroidism. His TSH is 50 and his free T4 is also low. Patient has been on 137 mcg of Synthroid but his compliance is questionable. Reason For Visit: BRADYCARDIA Physical Exam Vital Signs: Temp Pulse Resp BP Pulse Ox 98.4 F 41 L 18 146/62 H 100 11/09/18 04:00 11/09/18 14:00 11/09/18 04:00 11/09/18 04:00 11/09/18 04:00 Intake & Output 11/08/18 11/09/18 11/10/18 06:59 06:59 06:59 Intake Total 850 957 300 Balance 850 957 300 Weight 73.1 kg 76.9 kg General appearance: PRESENT: no acute distress Head exam: PRESENT: atraumatic Mouth exam: PRESENT: moist Neck exam: ABSENT: carotid bruit, JVD, lymphadenopathy, thyromegaly Respiratory exam: PRESENT: clear to auscultation real. ABSENT: rales, rhonchi, wheezes GI/Abdominal exam: PRESENT: normal bowel sounds, soft. ABSENT: distended, guarding, mass, organolmegaly, rebound, tenderness Neurological exam: PRESENT: alert, awake Results Laboratory Results: 11/09/18 04:13 11/09/18 04:13 11/09/18 11/09/18 11/09/18 04:13 04:13 04:13 WBC 18.3 H D RBC 5.18 Hgb 14.6 Hct 43.8 MCV 84 MCH 28.1 MCHC 33.3 RDW 13.8 Plt Count 180 Seg Neutrophils % Not Reportable Lymphocytes % Not Reportable Monocytes % Not Reportable Eosinophils % Not Reportable Basophils % Not Reportable Absolute Neutrophils Not Reportable Absolute Lymphocytes Not Reportable Absolute Monocytes Not Reportable Absolute Eosinophils Not Reportable Absolute Basophils Not Reportable Sodium 140.9 Potassium 4.7 Chloride 106 Carbon Dioxide 20 L Anion Gap 15 BUN 42 H Creatinine 2.75 H Est GFR ( Amer) 27 L Est GFR (Non-Af Amer) 23 L Glucose 190 H Calcium 9.6 Magnesium 2.2 Total Bilirubin 0.5 AST 22 ALT 19 L Alkaline Phosphatase 78 Total Protein 7.2 Albumin 3.5 TSH 12.90 H 11/06/18 11/06/18 10:21 10:21 Creatine Kinase 101 CK-MB (CK-2) 1.80 Troponin I 0.048 Impressions: Chest X-Ray 11/06/18 10:51 IMPRESSION: Cardiomegaly without acute abnormality of the lungs in AP projection. Head CT 11/06/18 10:51 IMPRESSION: 1. No acute intracranial pathology. Small vessel white matter disease. 2. Possible soft tissue hematoma or other subcutaneous abnormality of the partially imaged posterior neck. Correlate with physical examination. EVIDENCE OF ACUTE STROKE: NO. Assessment & Plan - Diagnosis (1) Uncontrolled hypothyroidism Is this a current diagnosis for this admission?: Yes Plan: I adjusted the dose of his Synthroid. (2) Syncope Is this a current diagnosis for this admission?: Yes Plan: CT head is negative. Possibly due to bradycardia (3) Symptomatic bradycardia Is this a current diagnosis for this admission?: Yes Plan: Treating underlying cause most probably uncontrolled hypothyroidism (4) Leukocytosis Is this a current diagnosis for this admission?: Yes Plan: Has resolved (5) Atrial fibrillation Qualifiers: Atrial fibrillation type: unspecified Qualified Code(s): I48.91 - Unspecified atrial fibrillation Is this a current diagnosis for this admission?: Yes Plan: Rate control (6) Dementia Is this a current diagnosis for this admission?: Yes Plan: Stable
[2018-11-10] MEDS: HEPARIN SOD (PORCINE) 5,000 UNIT/ML 1 ML SYRINGE SUBCUT SCH ×2 (05:36→14:55)
[2018-11-10] MEDS ORDERED: LEVOTHYROXINE SODIUM 0.025 MG TABLET PO SCH ×2 (06:00)
[2018-11-10] MEDS ORDERED: LEVOTHYROXINE SODIUM 0.112 MG TABLET PO SCH (06:00)
[2018-11-10] MEDS: INSULIN LISPRO 100 UNIT/ML 3 ML VIAL SUBCUT PRN ×4 (08:19→22:34)
[2018-11-10] MEDS: LISINOPRIL 10 MG TABLET PO SCH (09:39)
[2018-11-10] MEDS: METHYLPREDNISOLONE INJ 40 MG/1 ML SDV IV SCH (09:39)
[2018-11-10] MEDS: GLIMEPIRIDE 4 MG TABLET PO SCH (09:39)
--- NOTE | 2018-11-10 16:35 | PDOC PROGRESS REPORT ---
Subjective Progress Note for:: 11/10/18 Subjective:: I seen patient resting in bed. He does not have new complaint. He is running bradycardia in the range of 39-42. Despite the bradycardia patient is a symptomatic. Patient is being followed by Dr. Terry who attributed the bradycardia due to uncontrolled hypothyroidism. I increased the dose of his Synthroid from 137 to 200. Reason For Visit: BRADYCARDIA Physical Exam Vital Signs: Temp Pulse Resp BP Pulse Ox 98.3 F 42 L 18 132/70 H 96 11/10/18 07:42 11/10/18 07:42 11/10/18 07:42 11/10/18 07:42 11/10/18 07:42 Intake & Output 11/09/18 11/10/18 11/11/18 06:59 06:59 06:59 Intake Total 957 300 Balance 957 300 Weight 76.9 kg 74.3 kg General appearance: PRESENT: no acute distress Head exam: PRESENT: atraumatic Mouth exam: PRESENT: moist Respiratory exam: PRESENT: clear to auscultation real. ABSENT: rales, rhonchi, wheezes Cardiovascular exam: PRESENT: bradycardia GI/Abdominal exam: PRESENT: normal bowel sounds, soft. ABSENT: distended, guarding, mass, organolmegaly, rebound, tenderness Neurological exam: PRESENT: alert, awake Results Laboratory Results: 11/09/18 04:13 11/09/18 04:13 11/10/18 11:07 TSH 6.22 H 11/06/18 11/06/18 10:21 10:21 Creatine Kinase 101 CK-MB (CK-2) 1.80 Troponin I 0.048 Impressions: Chest X-Ray 11/06/18 10:51 IMPRESSION: Cardiomegaly without acute abnormality of the lungs in AP projecti on. Head CT 11/06/18 10:51 IMPRESSION: 1. No acute intracranial pathology. Small vessel white matter disease. 2. Possible soft tissue hematoma or other subcutaneous abnormality of the partially imaged posterior neck. Correlate with physical examination. EVIDENCE OF ACUTE STROKE: NO. Assessment & Plan - Diagnosis (1) Uncontrolled hypothyroidism Is this a current diagnosis for this admission?: Yes Plan: I increase the dose of his Synthroid from 137-200 mcg. (2) Syncope Is this a current diagnosis for this admission?: Yes Plan: CT head is negative. Possibly due to bradycardia (3) Symptomatic bradycardia Is this a current diagnosis for this admission?: Yes Plan: Treating underlying cause most probably uncontrolled hypothyroidism (4) Leukocytosis Is this a current diagnosis for this admission?: Yes Plan: Has resolved (5) Atrial fibrillation Qualifiers: Atrial fibrillation type: unspecified Qualified Code(s): I48.91 - Unspecified atrial fibrillation Is this a current diagnosis for this admission?: Yes Plan: Rate control (6) Dementia Is this a current diagnosis for this admission?: Yes Plan: Stable
[2018-11-10] MEDS: APIXABAN 2.5 MG TABLET PO SCH (18:21)
[2018-11-11] MEDS: LEVOTHYROXINE SODIUM 0.1 MG TABLET PO SCH (05:34)
[2018-11-11] MEDS: HYDRALAZINE HCL INJ/PF 20 MG/1 ML SDV IV PRN (05:34)
[2018-11-11] MEDS ORDERED: ASPIRIN 325 MG TABLET PO SCH (10:00)
[2018-11-11] MEDS ORDERED: OXYCODONE HCL IR 5 MG TABLET PO PRN (10:30)
[2018-11-11] MEDS: GLIMEPIRIDE 4 MG TABLET PO SCH (11:24)
[2018-11-11] MEDS: APIXABAN 2.5 MG TABLET PO SCH ×2 (11:24→17:58)
[2018-11-11] MEDS: LISINOPRIL 10 MG TABLET PO SCH (11:24)
[2018-11-11] MEDS: INSULIN LISPRO 100 UNIT/ML 3 ML VIAL SUBCUT PRN ×3 (11:32→21:30)
--- NOTE | 2018-11-11 13:25 | PDOC PROGRESS REPORT ---
Subjective Progress Note for:: 11/11/18 Subjective:: I seen patient propped up in bed and enjoying his lunch. He is surrounded by by family members including his daughter who is a office worker. She told me that she is giving him his Synthroid together with the rest of his medications and which might be the reason patient has uncontrolled hypothyroidism. I advised her to give him his Synthroid was empty stomach and after an hour or 2 later she can give the rest of his medication or for that. His heart rate is ranging between 36 and 63. But patient is asymptomatic. Reason For Visit: BRADYCARDIA Physical Exam Vital Signs: Temp Pulse Resp BP Pulse Ox 98.4 F 48 L 19 163/73 H 98 11/11/18 08:00 11/11/18 08:00 11/11/18 08:00 11/11/18 08:00 11/11/18 08:00 Intake & Output 11/10/18 11/11/18 11/12/18 06:59 06:59 06:59 Intake Total 300 1839 Balance 300 1839 Weight 74.3 kg 69.8 kg General appearance: PRESENT: no acute distress Eye exam: PRESENT: conjunctiva pink Mouth exam: PRESENT: moist Neck exam: ABSENT: carotid bruit, JVD, lymphadenopathy, thyromegaly Respiratory exam: PRESENT: clear to auscultation real. ABSENT: rales, rhonchi, wheezes Cardiovascular exam: PRESENT: bradycardia GI/Abdominal exam: PRESENT: normal bowel sounds, soft. ABSENT: distended, guarding, mass, organolmegaly, rebound, tenderness Neurological exam: PRESENT: alert, awake Results Laboratory Results: 11/09/18 04:13 11/09/18 04:13 11/06/18 11/06/18 10:21 10:21 Creatine Kinase 101 CK-MB (CK-2) 1.80 Troponin I 0.048 Impressions: Chest X-Ray 11/06/18 10:51 IMPRESSION: Cardiomegaly without acute abnormality of the lungs in AP projection. Head CT 11/06/18 10:51 IMPRESSION: 1. No acute intracranial pathology. Small vessel white matter disease. 2. Possible soft tissue hematoma or other subcutaneous abnormality of the partially imaged posterior neck. Correlate with physical examination. EVIDENCE OF ACUTE STROKE: NO. Assessment & Plan - Diagnosis (1) Uncontrolled hypothyroidism Is this a current diagnosis for this admission?: Yes Plan: His daughter who is a office worker of the patient is advised to give his Synthroid with empty stomach and give the rest of his medication or for an hour or 2 later. (2) Syncope Is this a current diagnosis for this admission?: Yes Plan: CT head is negative. Possibly due to bradycardia (3) Symptomatic bradycardia Is this a current diagnosis for this admission?: Yes Plan: Treating underlying cause most probably uncontrolled hypothyroidism (4) Leukocytosis Is this a current diagnosis for this admission?: Yes Plan: Has resolved (5) Atrial fibrillation Qualifiers: Atrial fibrillation type: unspecified Qualified Code(s): I48.91 - Unspecified atrial fibrillation Is this a current diagnosis for this admission?: Yes (6) Dementia Is this a current diagnosis for this admission?: Yes
[2018-11-12] MEDS: LEVOTHYROXINE SODIUM 0.1 MG TABLET PO SCH (06:53)
[2018-11-12] MEDS: LISINOPRIL 10 MG TABLET PO SCH (09:33)
[2018-11-12] MEDS: GLIMEPIRIDE 4 MG TABLET PO SCH (09:36)
[2018-11-12] MEDS: APIXABAN 2.5 MG TABLET PO SCH ×2 (09:36→18:52)
[2018-11-12] MEDS: INSULIN LISPRO 100 UNIT/ML 3 ML VIAL SUBCUT PRN (12:50)
--- NOTE | 2018-11-12 15:03 | PDOC PROGRESS REPORT ---
Subjective Progress Note for:: 11/12/18 Subjective:: No significant change overnight. Patient is awake alert. He is not in pain or distress. But still has some deconditioning and debility so he will qualify for inpatient rehab. Reason For Visit: BRADYCARDIA Physical Exam Vital Signs: Temp Pulse Resp BP Pulse Ox 98.4 F 52 L 16 149/72 H 99 11/12/18 12:24 11/12/18 12:24 11/12/18 12:24 11/12/18 12:24 11/12/18 12:24 Intake & Output 11/11/18 11/12/18 11/13/18 06:59 06:59 06:59 Intake Total 1831985 Balance 1831985 Weight 69.8 kg 76.5 kg General appearance: PRESENT: no acute distress Head exam: PRESENT: atraumatic Eye exam: PRESENT: conjunctiva pink Mouth exam: PRESENT: moist Respiratory exam: PRESENT: clear to auscultation real. ABSENT: rales, rhonchi, wheezes Cardiovascular exam: PRESENT: RRR. ABSENT: diastolic murmur, rubs, systolic murmur Extremities exam: PRESENT: full ROM. ABSENT: calf tenderness, clubbing, pedal edema Neurological exam: PRESENT: alert, awake Results Laboratory Results: 11/09/18 04:13 11/09/18 04:13 11/12/18 04:27 TSH 6.38 H 11/06/18 11/06/18 10:21 10:21 Creatine Kinase 101 CK-MB (CK-2) 1.80 Troponin I 0.048 Impressions: Chest X-Ray 11/06/18 10:51 IMPRESSION: Cardiomegaly without acute abnormality of the lungs in AP projection. Head CT 11/06/18 10:51 IMPRESSION: 1. No acute intracranial pathology. Small vessel white matter disease. 2. Possible soft tissue hematoma or other subcutaneous abnormality of the partially imaged posterior neck. Correlate with physical examination. EVIDENCE OF ACUTE STROKE: NO. Assessment & Plan - Diagnosis (1) Debility and deconditioning Is this a current diagnosis for this admission?: Yes Plan: Patient may qualify for inpatient rehab. (2) Uncontrolled hypothyroidism Is this a current diagnosis for this admission?: Yes Plan: His daughter who is a payroll machine operator of the patient is advised to give his Synthroid with empty stomach and give the rest of his medication or for an hour or 2 later. (3) Syncope Is this a current diagnosis for this admission?: Yes Plan: CT head is negative. Possibly due to bradycardia (4) Symptomatic bradycardia Is this a current diagnosis for this admission?: Yes Plan: Treating underlying cause most probably uncontrolled hypothyroidism (5) Leukocytosis Is this a current diagnosis for this admission?: Yes Plan: Has resolved (6) Atrial fibrillation Qualifiers: Atrial fibrillation type: unspecified Qualified Code(s): I48.91 - Unspecified atrial fibrillation Is this a current diagnosis for this admission?: Yes Plan: Rate control (7) Dementia Is this a current diagnosis for this admission?: Yes Plan: Stable
[2018-11-12] MEDS ORDERED: POLYETHYLENE GLYCOL 3350 POWDER 17 GM/1 PACKET PO ONE ×2 (15:30→19:00)
[2018-11-12] MEDS ORDERED: BISACODYL 5 MG TABEC PO ONE ×2 (15:30→19:00)
[2018-11-13] MEDS: HYDRALAZINE HCL INJ/PF 20 MG/1 ML SDV IV PRN (00:53)
[2018-11-13 03:26] LABS: ANION GAP 7 (5-19); BLOOD UREA NITROGEN 52 mg/dL (7-20); CALCIUM 8.4 mg/dL (8.4-10.2); CARBON DIOXIDE 25 mmol/L (22-30); CHLORIDE 104 mmol/L (98-107); GLUCOSE 127 mg/dL (75-110); PHOSPHORUS 3.6 mg/dL (2.5-4.5); POTASSIUM 4.8 mmol/L (3.6-5.0); SODIUM 135.7 mmol/L (137-145)
[2018-11-13] MEDS: LEVOTHYROXINE SODIUM 0.1 MG TABLET PO SCH (06:34)
--- NOTE | 2018-11-13 07:40 | EKG REPORT ---
SEVERITY:- OTHERWISE NORMAL ECG - SINUS BRADYCARDIA LEFT AXIS DEVIATION 2:1 AVB, SECONDARY DEGREE. CONSIDER HYPERKALEMIA, NOT TYPICAL TALL PEAKED T WAVES, BUT CHANGED SINCE 11/07/18 EKG : Confirmed by: Kvng Zelaya MD 13-Nov-2018 07:39:55
[2018-11-13] MEDS: APIXABAN 2.5 MG TABLET PO SCH ×2 (09:24→17:57)
[2018-11-13] MEDS: GLIMEPIRIDE 4 MG TABLET PO SCH (09:24)
[2018-11-13] MEDS: LISINOPRIL 10 MG TABLET PO SCH (09:24)
--- NOTE | 2018-11-13 13:20 | PDOC PROGRESS REPORT ---
Subjective Subjective:: This is 73 years old black male patient with history of dementia brought with chief complaint of weakness and possible syncope. Patient found to have symptomatic bradycardia due to uncontrolled hypothyroidism. At admission TSH was 50 and his free T4 is also low and his latest TSH is 6.38. At home patient has been on 137 mcg of Synthroid. His daughter told me that she is the one who provides his daily medications. But she gave all his medication including the Synthroid at the same time which could be the reason why his hypothyroidism is not well controlled. Patient has been running bradycardia in the lower 40s but he is asymptomatic and the Dr. Terry attributed it to his hypothyroidism. Since patient is debilitated and deconditioned he is awaiting placement to assisted facility. Reason For Visit: BRADYCARDIA Physical Exam Vital Signs: Temp Pulse Resp BP Pulse Ox 97.7 F 40 L 20 122/77 98 11/13/18 07:36 11/13/18 07:36 11/13/18 07:36 11/13/18 07:36 11/13/18 07:36 Intake & Output 11/12/18 11/13/18 11/14/18 06:59 06:59 06:59 Intake Total 1985 1256 Balance 1985 1256 Weight 76.5 kg 78.3 kg General appearance: PRESENT: no acute distress Eye exam: PRESENT: conjunctiva pink Mouth exam: PRESENT: moist Neck exam: ABSENT: carotid bruit, JVD, lymphadenopathy, thyromegaly Respiratory exam: PRESENT: clear to auscultation real. ABSENT: rales, rhonchi, wheezes Cardiovascular exam: PRESENT: bradycardia Neurological exam: PRESENT: alert, awake Results Laboratory Results: 11/09/18 04:13 11/13/18 03:02 11/13/18 03:02 Sodium 135.7 L Potassium 4.8 Chloride 104 Carbon Dioxide 25 Anion Gap 7 BUN 52 H Creatinine 2.37 H Est GFR ( Amer) 33 L Est GFR (Non-Af Amer) 27 L Glucose 127 H Calcium 8.4 Phosphorus 3.6 Magnesium 2.2 11/06/18 11/06/18 10:21 10:21 Creatine Kinase 101 CK-MB (CK-2) 1.80 Troponin I 0.048 Impressions: Chest X-Ray 11/06/18 10:51 IMPRESSION: Cardiomegaly without acute abnormality of the lungs in AP proj ection. Head CT 11/06/18 10:51 IMPRESSION: 1. No acute intracranial pathology. Small vessel white matter disease. 2. Possible soft tissue hematoma or other subcutaneous abnormality of the partially imaged posterior neck. Correlate with physical examination. EVIDENCE OF ACUTE STROKE: NO. Assessment & Plan - Diagnosis (1) Debility and deconditioning Is this a current diagnosis for this admission?: Yes Plan: Patient may qualify for inpatient rehab. (2) Uncontrolled hypothyroidism Is this a current diagnosis for this admission?: Yes Plan: His daughter who is a test analyst of the patient is advised to give his Synthroid with empty stomach and give the rest of his medication or for an hour or 2 later. (3) Syncope Is this a current diagnosis for this admission?: Yes Plan: CT head is negative. Possibly due to bradycardia (4) Symptomatic bradycardia Is this a current diagnosis for this admission?: Yes Plan: Currently patient does not have symptoms related to his bradycardia (5) Leukocytosis Is this a current diagnosis for this admission?: Yes Plan: Has resolved (6) Atrial fibrillation Qualifiers: Atrial fibrillation type: unspecified Qualified Code(s): I48.91 - Unspecified atrial fibrillation Is this a current diagnosis for this admission?: Yes Plan: Rate control (7) Dementia Is this a current diagnosis for this admission?: Yes Plan: Stable
[2018-11-14] MEDS: LEVOTHYROXINE SODIUM 0.1 MG TABLET PO SCH (05:48)
[2018-11-14] MEDS: GLIMEPIRIDE 4 MG TABLET PO SCH (09:25)
[2018-11-14] MEDS: APIXABAN 2.5 MG TABLET PO SCH ×2 (09:26→19:23)
[2018-11-14] MEDS: LISINOPRIL 10 MG TABLET PO SCH (09:26)
[2018-11-14] MEDS: INSULIN LISPRO 100 UNIT/ML 3 ML VIAL SUBCUT PRN (13:27)
--- NOTE | 2018-11-14 18:44 | PDOC PROGRESS REPORT ---
Subjective Progress Note for:: 11/14/18 Subjective:: No adverse events overnight. No new complaints. Sinus bradycardia on the monitor. Eating and drinking without difficulty. Apparently refused to go to SNF yesterday, but told me today he would go. Given his dementia, whether or not he will go to to a facility is probably heavily dependent on when you ask him. Reason For Visit: BRADYCARDIA Physical Exam Vital Signs: Temp Pulse Resp BP Pulse Ox 97.7 F 35 L 16 126/66 H 100 11/14/18 15:30 11/14/18 14:00 11/14/18 15:30 11/14/18 15:30 11/14/18 15:30 Intake & Output 11/13/18 11/14/18 11/15/18 06:59 06:59 06:59 Intake Total 1256 920 354 Balance 1256 920 354 Weight 78.3 kg 76.8 kg General appearance: PRESENT: no acute distress, cooperative, disheveled Respiratory exam: PRESENT: clear to auscultation real, symmetrical, unlabored. ABSENT: accessory muscle use, rales, rhonchi, tachypnea, wheezes Cardiovascular exam: PRESENT: bradycardia - Sinus bradycardia on the monitor with a rate in the upper 30s Vascular exam: PRESENT: normal capillary refill GI/Abdominal exam: PRESENT: normal bowel sounds, soft. ABSENT: distended, guarding, rebound, tenderness Extremities exam: ABSENT: clubbing, pedal edema Musculoskeletal exam: PRESENT: normal inspection. ABSENT: deformity Neurological exam: PRESENT: alert, awake, oriented to person. ABSENT: oriented to place, oriented to time, oriented to situation Psychiatric exam: PRESENT: flat affect Skin exam: PRESENT: dry, warm Results Laboratory Results: 11/09/18 04:13 11/13/18 03:02 11/14/18 04:14 TSH 8.24 H 11/06/18 11/06/18 10:21 10:21 Creatine Kinase 101 CK-MB (CK-2) 1.80 Troponin I 0.048 Impressions: Chest X-Ray 11/06/18 10:51 IMPRESSION: Cardiomegaly without acute abnormality of the lungs in AP projection. Head CT 11/06/18 10:51 IMPRESSION: 1. No acute intracranial pathology. Small vessel white matter disease. 2. Possible soft tissue hematoma or other subcutaneous abnormality of the partially imaged posterior neck. Correlate with physical examination. EVIDENCE OF ACUTE STROKE: NO. Assessment & Plan - Diagnosis (1) Syncope Qualifiers: Syncope type: unspecified Qualified Code(s): R55 - Syncope and collapse Is this a current diagnosis for this admission?: Yes Plan: His orthostatics were positive. His thyroid levels are being corrected. He is converted back into a sinus rhythm, even though it is a sinus bradycardia. All of these were probably contributing to his syncope. He has had no further episodes. (2) Atrial fibrillation Qualifiers: Atrial fibrillation type: unspecified Qualified Code(s): I48.91 - Unspecified atrial fibrillation Is this a current diagnosis for this admission?: Yes Plan: Resolved. (3) Sinus bradycardia Is this a current diagnosis for this admission?: Yes Plan: Currently asymptomatic with a rate in the upper 30s while awake. Cardiology recommended no further intervention. (4) Hypothyroidism Qualifiers: Hypothyroidism type: unspecified Qualified Code(s): E03.9 - Hypothyroidism, unspecified Is this a current diagnosis for this admission?: Yes Plan: He had to have not been taking his medications, and once we put him on his Synthroid his levels began to correct. He also went out of atrial fibrillation back into a sinus rhythm. Continue Synthroid. - Time Time Spent with patient: 15-24 minutes
[2018-11-15] MEDS: LEVOTHYROXINE SODIUM 0.1 MG TABLET PO SCH (05:52)
--- NOTE | 2018-11-15 08:05 | EKG REPORT ---
SEVERITY:- ABNORMAL ECG - SINUS BRADYCARDIA SECOND DEGREE AVB LEFT AXIS DEVIATION ABNORMAL T, CONSIDER ISCHEMIA, INFERIOR LEADS : Confirmed by: Kvng Zelaya MD 15-Nov-2018 08:04:48
[2018-11-15] MEDS: LISINOPRIL 10 MG TABLET PO SCH (09:56)
[2018-11-15] MEDS: APIXABAN 2.5 MG TABLET PO SCH ×2 (09:56→17:48)
[2018-11-15] MEDS: GLIMEPIRIDE 4 MG TABLET PO SCH (09:56)
[2018-11-15] MEDS: INSULIN LISPRO 100 UNIT/ML 3 ML VIAL SUBCUT PRN (12:15)
--- NOTE | 2018-11-15 16:06 | PDOC TRANSFER SUMMARY ---
General - Admit/Disc Date/PCP Admission Date/Primary Care Provider: 11/06/18 15:57 SHAQ HANCOCK DO Discharge Date: 11/15/18 - Discharge Diagnosis (1) Syncope Is this a current diagnosis for this admission?: Yes Summary: His orthostatic vital signs were positive, especially going from laying down to sitting up. He did not have any syncopal or near syncopal episodes once we put him back on his Synthroid. (2) Atrial fibrillation Is this a current diagnosis for this admission?: Yes Summary: He was initially in atrial fibrillation whenever he came in, but once we got him back on his Synthroid he is gone back into a sinus rhythm, albeit a sinus bradycardia. He is currently on anticoagulation, but if he remains in a sinus rhythm, discontinuing the anticoagulation may be a consideration. (3) Sinus bradycardia Is this a current diagnosis for this admission?: Yes Summary: He converted to a sinus bradycardia and his rate has typically been in the upper 30s. He has been asymptomatic with a normal blood pressure in this regard. (4) Hypothyroidism Is this a current diagnosis for this admission?: Yes Summary: He was supposed to be on Synthroid as an outpatient, but apparently had not been getting his Synthroid in some time, because we checked his TSH it was very high. We put him back on Synthroid and his numbers begin to correct, and his atrial fibrillation converted to a sinus rhythm. He has TSH will need to be checked in 3-4 weeks to see if his dose needs to be adjusted. - Additional Information Discharge Diet: Cardiac, Diabetic Discharge Activity: Supervised Activity Home Medications: Donepezil HCl [Aricept] 10 mg PO DAILY 11/06/18 Glimepiride [Amaryl 4 mg Tablet] 4 mg PO DAILY 11/06/18 Lisinopril [Zestril] 10 mg PO DAILY 11/06/18 Apixaban [Eliquis 2.5 mg Tablet] 2.5 mg PO BID tablet 11/15/18 Levothyroxine Sodium [Synthroid 0.1 mg Tablet] 0.2 mg PO Q6AM tablet 11/15/18 History of Present Illness Admission Date/PCP: 11/06/18 15:57 SHAQ HANCOCK DO History of Present Illness: RICHARD YATES JR is a 73 year old male with a history of dementia who was brought from home by his family. The patient is demented and is unable to provide any kind of history whatsoever. His family was not there so everything I know about him comes from the report from the ER provider over the phone and when I am able to read from the chart. Apparently they were helping him stand up from the commode when his head "flopped forward" and it seems like he almost passed out for a second but he promptly got back to normal. By report, he has been previously what is considered normal for him. His head CT in the ER was unremarkable. He had a couple of EKGs that did not have very good tracings but were suspicious for atrial fibrillation. On the manager cardiac cath at the bedside his tracing would clear up periodically and it did appear to be atrial fibrillation with a rate in the 50s while he was asleep and in the 60s-80s while he was awake. Apparently this is a new finding for him. Hospital Course Hospital Course: We checked his TSH the day after he was admitted, and his TSH was very high, indicating that he had probably not been getting his Synthroid in quite some time. We put him back on Synthroid and his rhythm converted to a sinus bradycardia, and his heart rate has typically been in the upper 30s at rest. He has been asymptomatic in this regard. His blood pressure has actually been a little bit high and we had to put him on some lisinopril, which we also think he was not getting at home. His orthostatics were positive, and we gave him some IV fluids. However, I think the root of all his issues was the fact that he had not been getting his Synthroid. Unofficially consulted cardiology and ran the case by Dr. Sampson, who recommended putting him on anticoagulation for at least a few weeks. If he remains in a sinus rhythm, consideration can be given to discontinuing anticoagulation. His TSH will need to be checked in 3-4 weeks to see if his Synthroid dose needs to be adjusted. He has had no syncopal episodes since coming to this hospital. He was evaluated by physical therapy and was determined to be a rehab candidate. A bed was obtained in a senior care facility and he is being transferred there today in good condition. His labs and examination were reassuring and he was deemed ready for discharge. Physical Exam Vital Signs: Temp Pulse Resp BP Pulse Ox 98.1 F 39 L 16 163/74 H 100 11/15/18 11:31 11/15/18 07:00 11/15/18 11:31 11/15/18 11:31 11/15/18 11:31 Intake & Output 11/14/18 11/15/18 11/16/18 06:59 06:59 06:59 Intake Total 920 1000 502 Balance 920 1000 502 Weight 76.8 kg 77.5 kg General appearance: PRESENT: no acute distress, cooperative, disheveled Respiratory exam: PRESENT: clear to auscultation real, symmetrical, unlabored. ABSENT: accessory muscle use, rales, rhonchi, tachypnea, wheezes Cardiovascular exam: PRESENT: bradycardia - Sinus bradycardia on the monitor with a rate in the upper 30s Vascular exam: PRESENT: normal capillary refill GI/Abdominal exam: PRESENT: normal bowel sounds, soft. ABSENT: distended, guarding, rebound, tenderness Extremities exam: ABSENT: clubbing, pedal edema Musculoskeletal exam: PRESENT: normal inspection. ABSENT: deformity Neurological exam: PRESENT: alert, awake, oriented to person. ABSENT: oriented to place, oriented to time, oriented to situation Psychiatric exam: PRESENT: flat affect Skin exam: PRESENT: dry, warm Results Laboratory Results: 11/09/18 04:13 11/13/18 03:02 11/06/18 11/06/18 10:21 10:21 Creatine Kinase 101 CK-MB (CK-2) 1.80 Troponin I 0.048 Impressions: Chest X-Ray 11/06/18 10:51 IMPRESSION: Cardiomegaly without acute abnormality of the lungs in AP projection. Head CT 11/06/18 10:51 IMPRESSION: 1. No acute intracranial pathology. Small vessel white matter disease. 2. Possible soft tissue hematoma or other subcutaneous abnormality of the partially imaged posterior neck. Correlate with physical examination. EVIDENCE OF ACUTE STROKE: NO. Transfer Plan - Time Spent with Patient Time spent with patient: Greater than 30 Minutes Qualifiers - * PATIENT BEING DISCHARGED WITH ANY OF THE FOLLOWING DIAGNOSIS: No
[2018-11-15 16:44] VITALS: BP 148/62
== END 2018-11-15 18:04 | DRG 645 ==
LOC: ER 10:32 → EH 14:58 → OBSVTOIN 15:57 → 5 16:55
PROVIDERS: ADMIT Hospitalist; ATTEND Hospitalist
DX: E03.9 Hypothyroidism, unspecified (principal); I48.91 Unspecified atrial fibrillation; F03.90 Unspecified dementia, unspecified severity, without behavioral disturbance, psychotic disturbance, mood disturbance, and anxiety; E11.9 Type 2 diabetes mellitus without complications; R00.1 Bradycardia, unspecified; D50.8 Other iron deficiency anemias; D72.829 Elevated white blood cell count, unspecified; I95.1 Orthostatic hypotension; I10 Essential (primary) hypertension; R53.81 Other malaise; Z87.891 Personal history of nicotine dependence; Z79.01 Long term (current) use of anticoagulants; Z79.84 Long term (current) use of oral hypoglycemic drugs
CPT/HCPCS: 36415; 70450; 71045; 80048; 80053; 81001; 82550; 82553; 82962; 83735; 84100; 84439; 84443; 84484; 85025; 85610; 87086; 93005; 93010; 93306; 96360; 96361; 99285; G0378; J0360; J1644; J1815; J2920; J2930; J3490; J7040

== ENCOUNTER 2019-11-27 15:40 | Inpatient (IN) | payer MEDICARE, MEDICAID ==
[2019-11-27 16:17] LABS: HEMATOCRIT 34.9 % (37.9-51.0); HEMOGLOBIN 11.4 g/dL (13.5-17.0); MEAN CORPUSCULAR HEMOGLOBIN 29.1 pg (27.0-33.4); MEAN CORPUSCULAR HGB CONC 32.8 g/dL (32.0-36.0); MEAN CORPUSCULAR VOLUME 89 fl (80-97); PLATELET COUNT 193 10^3/uL (150-450); RED BLOOD COUNT 3.93 10^6/uL (4.35-5.55); RED CELL DISTRIBUTION WIDTH 15.4 % (11.5-14.0); WHITE BLOOD COUNT 10.7 10^3/uL (4.0-10.5)
[2019-11-27 16:20] LABS: AMORPHOUS SEDIMENT,URINE TRACE /HPF; APPEARANCE,URINE CLOUDY; BILIRUBIN,URINE NEGATIVE (NEGATIVE); COLOR,URINE YELLOW; GLUCOSE, URINE 50 mg/dL (NEGATIVE); KETONES,URINE NEGATIVE (NEGATIVE); LEUKOCYTE ESTERASE,URINE NEGATIVE (NEGATIVE); NITRITE,URINE NEGATIVE (NEGATIVE); PROTEIN,URINE >=500 mg/dL (NEGATIVE); URINE SPECIFIC GRAVITY 1.017; UROBILINOGEN,URINE NEGATIVE mg/dL (<2.0)
--- NOTE | 2019-11-27 16:31 | ER Document Report ---
ED Fever - General Chief Complaint: Fever Stated Complaint: DIFFICULTY BREATHING Time Seen by Provider: 11/27/19 16:20 Primary Care Provider: CONCHITA MARIN MD [Primary Care Provider] - Follow up as needed Notes: Patient is a 74-year-old male who presents to the emergency department for shortness of breath. [facility] He has a history of acute on chronic renal failure. Patient is alert and oriented x1. Unable to get adequate history. According to the patient's medical record, he has a history of atrial fibrillation, type 2 diabetes, dementia, hypertension, Alzheimer's disease, and hypothyroidism. TRAVEL OUTSIDE OF THE [place] IN LAST 30 DAYS: No - Related Data Allergies/Adverse Reactions: No Known Allergies Allergy (Verified 11/06/18 11:38) Past Medical History - General Information source: [facility] Records, Outside Facility Records - Social History Smoking Status: Unknown if Ever Smoked Family History: Reviewed & Not Pertinent Patient has suicidal ideation: No Patient has homicidal ideation: No - Past Medical History Cardiac Medical History: Reports: Hx Hypertension Endocrine Medical History: Reports: Hx Diabetes Mellitus Type 2 Renal/ Medical History: Denies: Hx Peritoneal Dialysis Past Surgical History: Reports: Hx Thyroid Surgery - goiter removed Review of Systems - Review of Systems -: Yes ROS unobtainable due to patient's medical condition Physical Exam - Vital signs Vitals: Resp Pulse Ox 0 L 99 11/27/19 15:49 11/27/19 15:49 - Notes Notes: PHYSICAL EXAMINATION: GENERAL: Appears chronically ill, mild acute distress. HEAD: Normocephalic, atraumatic. EYES: PERRL, conjunctiva normal, all extraocular movements intact, sclera nonicteric ENT: Moist mucous membranes. NECK: Supple, no noticeable swelling, redness, rash. Normal range of motion. LUNGS: Coarse/rhonchi breath sounds to right upper lobe. Diminished breath sounds in all others. CARDIOVASCULAR: S1-S2, regular rate, regular rhythm. Radial pulses 2+, normal. ABDOMEN: Normoactive bowel sounds. Soft, nontender, no guarding, no rebound tenderness, and no masses palpated. EXTREMITIES: Normal strength and range of motion, no pitting or edema. No cyanosis. NEUROLOGICAL: Moves all extremities upon command. Strength 5/5 in all extremities. PSYCH: Normal mood, normal affect. SKIN: Warm, dry. No rash, lesions, ulcerations noted. Normal skin turgor. Course - Vital Signs Vital signs: Temp Pulse Resp BP Pulse Ox 99.1 F 26 H 168/93 H 96 11/27/19 16:01 11/27/19 16:01 11/27/19 16:01 11/27/19 16:01 - Laboratory Result Diagrams: 11/27/19 16:07 11/27/19 16:07 Laboratory results interpreted by me: 11/27/19 11/27/19 11/27/19 16:07 16:07 16:07 WBC 10.7 H RBC 3.93 L Hgb 11.4 L Hct 34.9 L RDW 15.4 H Seg Neuts % (Manual) 89 H Lymphocytes % (Manual) 5 L Abs Neuts (Manual) 9.5 H Sodium 135.6 L BUN 45 H Creatinine 4.38 H Est GFR ( Amer) 16 L Est GFR (MDRD) Non-Af 13 L Glucose 284 H Lactic Acid Creatine Kinase 2081 H Albumin 3.1 L Urine Protein >=500 H Urine Glucose (UA) 50 H Urine Blood MODERATE H 11/27/19 16:07 WBC RBC Hgb Hct RDW Seg Neuts % (Manual) Lymphocytes % (Manual) Abs Neuts (Manual) Sodium BUN Creatinine Est GFR ( Amer) Est GFR (MDRD) Non-Af Glucose Lactic Acid 4.3 H Creatine Kinase Albumin Urine Protein Urine Glucose (UA) Urine Blood Discharge - Discharge Referrals: CONCHITA MARIN MD [Primary Care Provider] - Follow up as needed
[2019-11-27] MEDS ORDERED: NORMAL SALINE 1000 ML 1,000 ML IV ONE (16:33)
[2019-11-27 16:36] LABS: ALBUMIN 3.1 g/dL (3.5-5.0); ALKALINE PHOSPHATASE 60 U/L (38-126); ANION GAP 16 (5-19); ASPARTATE AMINO TRANSFERASE 43 U/L (17-59); BILIRUBIN,DIRECT 0.4 mg/dL (0.0-0.4); BILIRUBIN,TOTAL 0.4 mg/dL (0.2-1.3); BLOOD UREA NITROGEN 45 mg/dL (7-20); CALCIUM 8.6 mg/dL (8.4-10.2); CARBON DIOXIDE 22 mmol/L (22-30); CHLORIDE 98 mmol/L (98-107); GLUCOSE 284 mg/dL (75-110); POTASSIUM 4.8 mmol/L (3.6-5.0); TOTAL PROTEIN 6.5 g/dL (6.3-8.2)
[2019-11-27 16:37] LABS: ABSOLUTE LYMPHOCYTES# (MANUAL) 0.5 10^3/uL (0.5-4.7); ABSOLUTE MONOCYTES # (MANUAL) 0.5 10^3/uL (0.1-1.4); ANISOCYTOSIS SLIGHT; BASOPHILS % (MANUAL) 1 % (0-2); EOSINOPHILS % (MANUAL) 0 % (0-6); LYMPHOCYTES % (MANUAL) 5 % (13-45); MONOCYTES % (MANUAL) 5 % (3-13); PLATELET COMMENT ADEQUATE; SEGMENTED NEUTROPHILS % (MAN) 89 % (42-78); TOTAL CELLS COUNTED 100
--- NOTE | 2019-11-27 16:37 | RADIOLOGY REPORT (SQ) ---
EXAM DESCRIPTION: CHEST SINGLE VIEW COMPLETED DATE/TIME: 11/27/2019 4:22 pm REASON FOR STUDY: sob COMPARISON: 11/06/2018. NUMBER OF VIEWS: One view. TECHNIQUE: Single frontal radiographic view of the chest acquired. LIMITATIONS: None. FINDINGS: LUNGS AND PLEURA: No opacities, masses or pneumothorax. No pleural effusion. MEDIASTINUM AND HILAR STRUCTURES: No masses. Contour normal. HEART AND VASCULAR STRUCTURES: Heart enlarged without failure. Normal vasculature. BONES: No acute findings. HARDWARE: None in the chest. OTHER: No other significant finding. IMPRESSION: HEART ENLARGED WITHOUT FAILURE. NO OTHER SIGNIFICANT RADIOGRAPHIC FINDING IN THE CHEST. TECHNICAL DOCUMENTATION: JOB ID: [id number] [employer]- All Rights Reserved Reading location - IP/workstation name: [email or web address]
[2019-11-27 16:44] LABS: CREATINE KINASE 2081 U/L (55-170)
[2019-11-27 16:51] LABS: CREATINE KINASE MB 1.86 ng/mL (<4.55)
[2019-11-27 16:52] LABS: TROPONIN I 0.07 ng/mL
--- NOTE | 2019-11-27 16:55 | RADIOLOGY REPORT (SQ) ---
EXAM DESCRIPTION: CT HEAD WITHOUT COMPLETED DATE/TIME: 11/27/2019 4:39 pm REASON FOR STUDY: AMS COMPARISON: 11/06/2018. TECHNIQUE: Axial images acquired through the brain without intravenous contrast. Images reviewed wi th bone, brain and subdural windows. Additional sagittal and coronal reconstructions were generated. Images stored on PACS. All CT scanners at this facility use dose modulation, iterative reconstruction, and/or weight based d osing when appropriate to reduce radiation dose to as low as reasonably achievable (ALARA). [facility]: Dose Right [facility]: CareDose [facility]: Dose Right [facility]: Teradose 4D [facility]: [employer] RADIATION DOSE: CT Rad equipment meets quality standard of care and radiation dose reduction techniq ues were employed. CTDIvol: 55.2 mGy. DLP: 1029 mGy-cm.mGy. LIMITATIONS: None. FINDINGS: VENTRICLES: Prominent. CEREBRUM: No masses. No hemorrhage. No midline shift. Areas of low density in the white matter mos t likely due to chronic micro-vascular ischemic change. No evidence for acute infarction. CEREBELLUM: No masses. No hemorrhage. No alteration of density. No evidence for acute infarction. EXTRAAXIAL SPACES: Age-related involutional change. No fluid collections. No masses. ORBITS AND GLOBE: No intra- or extraconal masses. Normal contour of globe without masses. CALVARIUM: No fracture. PARANASAL SINUSES: No fluid or mucosal thickening. SOFT TISSUES: Again seen is increased density in the posterior subcutaneous soft tissues of the upper neck inferior to the occipital bone. OTHER: No other significant finding. IMPRESSION: 1. CHRONIC CHANGES OF ATROPHY AND MICROVASCULAR ISCHEMIA. NO ACUTE PROCESS. 2. INCREASED DENSITY IN THE POSTERIOR SUBCUTANEOUS SOFT TISSUES OF THE UPPER NECK. THIS HAS THE APPE ARANCE OF A HEMATOMA. HOWEVER, THIS WAS ALSO PRESENT ON THE PRIOR STUDY FROM 3 WEEKS AGO. RECOMMEND CLINICAL CORRELATION IF THERE HAS BEEN RE- INJURY. MAY ALSO CONSIDER CT OF THE SOFT TISSUES OF THE NECK TO EVALUATE THE FULL EXTENT OF THIS FINDING. EVIDENCE OF ACUTE STROKE: NO. TECHNICAL DOCUMENTATION: JOB ID: [id number] Quality ID # [id number]: Final reports with documentation of one or more dose reduction techniques (e.g., Au tomated exposure control, adjustment of the mA and/or kV according to patient size, use of iterative reconstruction technique) 2010 [employer]- All Rights Reserved Reading location - IP/workstation name: [facility]
--- NOTE | 2019-11-27 17:05 | EKG REPORT ---
SEVERITY:- ABNORMAL ECG - SINUS OR ECTOPIC ATRIAL RHYTHM THIRD DEGREE AV BLOCK WITH JUNCTIONAL ACCELERATED RHYTHM. LAD, CONSIDER LEFT ANTERIOR FASCICULAR BLOCK BORDERLINE PROLONGED QT INTERVAL : Confirmed by: Kvng Zelaya MD 27-Nov-2019 17:05:14
[2019-11-27 17:11] LABS: A TYPE INFLUENZA AG NEGATIVE (NEGATIVE); B INFLUENZA AG NEGATIVE (NEGATIVE)
--- NOTE | 2019-11-27 17:16 | ER Document Report ---
ED Medical Screen (RME) - General Chief Complaint: Fever Stated Complaint: DIFFICULTY BREATHING Time Seen by Provider: 11/27/19 16:20 Primary Care Provider: CONCHITA MARIN MD [Primary Care Provider] - Follow up as needed Notes: Patient is a 74-year-old male who presents to the emergency department for shortness of breath. Patient is from [facility]. He has a history of acute on chronic renal failure. Patient is alert and oriented x1. Unable to get adequate history. According to the patient's medical record, he has a history of atrial fibrillation, type 2 diabetes, dementia, hypertension, Alzheimer's disease, and hypothyroidism. I have greeted and performed a rapid initial assessment of this patient. A comprehensive ED assessment and evaluation of the patient, analysis of test results and completion of medical decision making process will be conducted by an additional ED providers. TRAVEL OUTSIDE OF THE [place] IN LAST 30 DAYS: No - Related Data Allergies/Adverse Reactions: No Known Allergies Allergy (Verified 11/06/18 11:38) Past Medical History - Past Medical History Cardiac Medical History: Reports: Hx Hypertension Endocrine Medical History: Reports: Hx Diabetes Mellitus Type 2 Renal/ Medical History: Denies: Hx Peritoneal Dialysis Past Surgical History: Reports: Hx Thyroid Surgery - goiter removed Physical Exam - Vital signs Vitals: Resp Pulse Ox 0 L 99 11/27/19 15:49 11/27/19 15:49 Course - Vital Signs Vital signs: Temp Pulse Resp BP Pulse Ox 99.1 F 26 H 168/93 H 96 11/27/19 16:01 11/27/19 16:01 11/27/19 16:01 11/27/19 16:01 - Laboratory Result Diagrams: 11/27/19 16:07 11/27/19 16:07 Laboratory results interpreted by me: 11/27/19 11/27/19 11/27/19 16:07 16:07 16:07 WBC 10.7 H RBC 3.93 L Hgb 11.4 L Hct 34.9 L RDW 15.4 H Seg Neuts % (Manual) 89 H Lymphocytes % (Manual) 5 L Abs Neuts (Manual) 9.5 H Sodium 135.6 L BUN 45 H Creatinine 4.38 H Est GFR ( Amer) 16 L Est GFR (MDRD) Non-Af 13 L Glucose 284 H Lactic Acid Creatine Kinase 2081 H Albumin 3.1 L Urine Protein >=500 H Urine Glucose (UA) 50 H Urine Blood MODERATE H 11/27/19 16:07 WBC RBC Hgb Hct RDW Seg Neuts % (Manual) Lymphocytes % (Manual) Abs Neuts (Manual) Sodium BUN Creatinine Est GFR ( Amer) Est GFR (MDRD) Non-Af Glucose Lactic Acid 4.3 H Creatine Kinase Albumin Urine Protein Urine Glucose (UA) Urine Blood Doctor's Discharge - Discharge Referrals: CONCHITA MARIN MD [Primary Care Provider] - Follow up as needed
[2019-11-27] MEDS ORDERED: VANCOMYCIN HCL INJ 1000 MG VIAL IV ONE (17:27)
[2019-11-27] MEDS ORDERED: PIPERACILLIN/TAZOBACTAM 3.375 GM VIAL IV ONE (17:27)
--- NOTE | 2019-11-27 17:35 | ER Document Report ---
ED General - General Chief Complaint: Fever Stated Complaint: DIFFICULTY BREATHING Time Seen by Provider: 11/27/19 16:20 Primary Care Provider: CONCHITA MARIN MD [Primary Care Provider] - Follow up as needed TRAVEL OUTSIDE OF THE [place] IN LAST 30 DAYS: No - HPI Notes: Mr. Hi is a 74-year-old male resident of [facility] cared for by Dr. Edwards with a history of advanced dementia, chronic atrial fibrillation, stage IV kidney disease, hypertension, hypothyroidism and recurrent urinary tract infection who was referred to the ED today for evaluation of low-grade fever and altered mental status of 3 days duration. No substantial history is obtained from the patient due to his baseline dementia and superimposed altered mental status. Review of paperwork shows that he is on a full CODE STATUS at this time. He has no known allergies. Patient is alert enough to respond to his name and make good eye contact but otherwise will not relate further history to us. - Related Data Allergies/Adverse Reactions: No Known Allergies Allergy (Verified 11/06/18 11:38) Past Medical History - General Information source: Emergency Med Personnel, Outside Facility Records Cannot obtain history due to: Dementia, Altered mental status - Social History Smoking Status: Unknown if Ever Smoked Family History: Reviewed & Not Pertinent Patient has suicidal ideation: No Patient has homicidal ideation: No - Past Medical History Cardiac Medical History: Reports: Hx Hypertension Endocrine Medical History: Reports: Hx Diabetes Mellitus Type 2 Renal/ Medical History: Denies: Hx Peritoneal Dialysis Past Surgical History: Reports: Hx Thyroid Surgery - goiter removed Review of Systems - Review of Systems -: Yes ROS unobtainable due to patient's medical condition Physical Exam - Vital signs Vitals: Resp Pulse Ox 0 L 99 11/27/19 15:49 11/27/19 15:49 - Notes Notes: GENERAL: Elderly man who is obtunded. Currently on nasal O2 5 L/min with a saturation of 100% by pulse oximetry. Patient is making good eye. SKIN: Good turgor no rashes. HEAD: Normocephalic atraumatic. EYES: PERRLA. EOMI. Conjunctivae and sclerae clear. EARS: CANALS AND TMS CLEAR. NOSE: CLEAR. MOUTH: Moist mucosa. Edentulous. No stridor or edema. No drooling. NECK: Supple. No masses or thyromegaly. No adenopathy. Carotids 2+ without bruits. No JVD. BACK: Symmetrical without tenderness. CHEST: Respirations unlabored. Rattling cough with scattered rhonchi bilaterally. HEART: Bradycardic regular rhythm. No murmur gallop or rub. ABDOMEN: Soft nontender without masses, organomegaly or rebound. Bowel sounds normally active. No bruits. GENITALIA: Patient is diapered. EXTREMITIES: No edema. No calf tenderness. Cap refill less than 1.5 seconds. Dorsalis pedis and posterior tibial pulses 3+ and symmetrical. NEUROLOGICAL: GCS 13. Random words only. Follows commands to roof bolting coal miner my hands symmetrically. Cranial nerves II through XII intact. Moving all 4 extremities symmetrically normal tone. PSYCHIATRIC: Flat affect. Course - Re-evaluation Re-evalutation: 11/27/19 17:48 Complicated case. Patient is demented and now has superimposed altered mental status. It appears that he is septic from probable aspiration pneumonia. He also has advanced renal failure. He is in new third-degree AV block although he is hemodynamically stable with this. I consulted Dr. Rice from cardiology who concurred that he does not need emergency pacing at this point but he recommends admission to ICU. I discussed this with Dr. Long from ICU and he is excepted for admission. Blood cultures been obtained. IV fluid bolus administered. IV Zosyn and vancomycin initiated. Patient is admitted to ICU. - Vital Signs Vital signs: Temp Pulse Resp BP Pulse Ox 99.1 F 26 H 168/93 H 96 11/27/19 16:01 11/27/19 16:01 11/27/19 16:01 11/27/19 16:01 - Laboratory Result Diagrams: 11/27/19 16:07 11/27/19 16:07 Laboratory results interpreted by me: 11/27/19 11/27/19 11/27/19 16:07 16:07 16:07 WBC 10.7 H RBC 3.93 L Hgb 11.4 L Hct 34.9 L RDW 15.4 H Seg Neuts % (Manual) 89 H Lymphocytes % (Manual) 5 L Abs Neuts (Manual) 9.5 H Carbonic Acid ABG pCO2 ABG pO2 ABG HCO3 ABG Total CO2 ABG O2 Saturation Sodium 135.6 L BUN 45 H Creatinine 4.38 H Est GFR ( Amer) 16 L Est GFR (MDRD) Non-Af 13 L Glucose 284 H Lactic Acid Creatine Kinase 2081 H NT-Pro-B Natriuret Pep Albumin 3.1 L Urine Protein >=500 H Urine Glucose (UA) 50 H Urine Blood MODERATE H 11/27/19 11/27/19 11/27/19 16:07 16:07 17:20 WBC RBC Hgb Hct RDW Seg Neuts % (Manual) Lymphocytes % (Manual) Abs Neuts (Manual) Carbonic Acid 1.00 L ABG pCO2 33.3 L ABG pO2 127.2 H ABG HCO3 18.8 L ABG Total CO2 19.8 L ABG O2 Saturation 98.5 H Sodium BUN Creatinine Est GFR ( Amer) Est GFR (MDRD) Non-Af Glucose Lactic Acid 4.3 H Creatine Kinase NT-Pro-B Natriuret Pep 64238 H Albumin Urine Protein Urine Glucose (UA) Urine Blood - EKG Interpretation by Me Additional EKG results interpreted by me: 11/27/19 17:36 Twelve-lead EKG from 1616 hrs. today is reviewed by me contemporaneously demonstrating complete AV block with ventricular rate of 83. No acute ST changes are noted. Tracing is compared to prior study from 11/15/2018 which at that time demonstrated a second-degree AV block. Critical Care Note - Critical Care Note Total time excluding time spent on procedures (mins): 35 - This man is in new third-degree AV block although he is hemodynamically stable at this time. It also appears that he has aspirated and is septic. I have consulted with surface grinder and clothespin machine operator and is going to be admitted to ICU. Sepsis protocol initiated. He will not be paced at this time. Discharge - Discharge Clinical Impression: Third-degree AV block Aspiration pneumonia Qualifiers: Aspiration pneumonia type: unspecified Laterality: unspecified laterality Lung location: unspecified part of lung Qualified Code(s): J69.0 - Pneumonitis due to inhalation of food and vomit Dementia Qualifiers: Dementia type: Alzheimer's disease Alzheimer's disease onset: unspecified onset Dementia behavioral disturbance: without behavioral disturbance Qualified Code(s): G30.9 - Alzheimer's disease, unspecified; F02.80 - Dementia in other diseases classified elsewhere without behavioral disturbance Chronic kidney disease Qualifiers: Chronic kidney disease stage: stage 4 (severe) Qualified Code(s): N18.4 - Chronic kidney disease, stage 4 (severe) Sepsis Qualifiers: Sepsis type: sepsis due to unspecified organism Sepsis acute organ dysfunction status: with acute organ dysfunction Severe sepsis acute organ dysfunction type: unspecified Severe sepsis shock status: without septic shock Qualified Code(s): A41.9 - Sepsis, unspecified organism; R65.20 - Severe sepsis without septic shock Condition: Critical Disposition: ADMITTED INPATIENT Admitting Provider: Tabitha (Application Systems Administrator) Unit Admitted: ICU Referrals: CONCHITA MARIN MD [Primary Care Provider] - Follow up as needed
[2019-11-27 17:43] LABS: ARTERIAL BLOOD BASE EXCESS -5.5 mmol/L; ARTERIAL BLOOD HCO3 18.8 mmol/L (20-24); ARTERIAL BLOOD O2 SATURATION 98.5 % (94-98); ARTERIAL BLOOD PCO2 33.3 mmHg (35-45); ARTERIAL BLOOD PH 7.37 (7.35-7.45); ARTERIAL BLOOD PO2 127.2 mmHg (80-100); ARTERIAL BLOOD TOTAL CO2 19.8 mmol/L (23-27)
[2019-11-27 17:44] LABS: ARTERIAL BLOOD FIO2 4L
--- NOTE | 2019-11-27 18:38 | PDOC CONSULTATION ---
Consultation Consult Date: 11/27/19 Provider Consulted: CHEKO ALBARADO Consult reason:: Complete heart block History of Present Illness Admission Date/PCP: 11/27/19 17:58 CONCHITA MARIN MD Patient complains of: Unable to relate any history. History is per chart and per records. History of Present Illness: RICHARD YATES JR is a 74 year old male Who is a resident at [facility] with reported worsening of dyspnea. At baseline he is not talkative Past Medical History Cardiac Medical History: Reports: Hypertension Endocrine Medical History: Reports: Diabetes Mellitus Type 2 Social History Smoking Status: Unknown if Ever Smoked Family History Family History: Reviewed & Not Pertinent Parental Family History Reviewed: No - Unable to obtain Children Family History Reviewed: NA Sibling(s) Family History Reviewed.: NA Medication/Allergy Home Medications: Donepezil HCl [Aricept] 10 mg PO DAILY 11/06/18 Glimepiride [Amaryl 4 mg Tablet] 4 mg PO DAILY 11/06/18 Lisinopril [Zestril] 10 mg PO DAILY 11/06/18 Apixaban [Eliquis 2.5 mg Tablet] 2.5 mg PO BID tablet 11/15/18 Levothyroxine Sodium [Synthroid 0.1 mg Tablet] 0.2 mg PO Q6AM tablet 11/15/18 Allergies/Adverse Reactions: No Known Allergies Allergy (Verified 11/06/18 11:38) Review of Systems ROS unobtainable: Due to mental status Physical Exam Vital Signs: Temp Pulse Resp BP Pulse Ox 99.1 F 26 H 148/97 H 98 11/27/19 16:01 11/27/19 17:01 11/27/19 17:01 11/27/19 17:01 Intake & Output 11/26/19 11/27/19 11/28/19 06:59 06:59 06:59 Intake Total 1000 Balance 1000 Weight 86.183 kg General appearance: PRESENT: no acute distress, obese Head exam: PRESENT: atraumatic, normocephalic Eye exam: PRESENT: conjunctiva pale Mouth exam: PRESENT: dry mucosa Respiratory exam: PRESENT: crackles, decreased breath sounds, prolonged expiratory phas, tachypnea Cardiovascular exam: PRESENT: RRR, +S1, +S2 Pulses: PRESENT: normal radial pulses GI/Abdominal exam: PRESENT: soft Rectal exam: PRESENT: deferred Neurological exam: PRESENT: altered Skin exam: PRESENT: dry, intact, normal color Results Laboratory Results: 11/27/19 16:07 11/27/19 16:07 11/27/19 11/27/19 11/27/19 16:07 16:07 16:07 WBC 10.7 H RBC 3.93 L Hgb 11.4 L Hct 34.9 L MCV 89 MCH 29.1 MCHC 32.8 RDW 15.4 H Plt Count 193 Seg Neutrophils % Not Reportable Carbonic Acid HCO3/H2CO3 Ratio ABG pH ABG pCO2 ABG pO2 ABG HCO3 ABG O2 Saturation ABG Base Excess FiO2 Sodium 135.6 L Potassium 4.8 Chloride 98 Carbon Dioxide 22 Anion Gap 16 BUN 45 H Creatinine 4.38 H Est GFR ( Amer) 16 L Glucose 284 H Lactic Acid Calcium 8.6 Total Bilirubin 0.4 AST 43 Alkaline Phosphatase 60 Total Protein 6.5 Albumin 3.1 L Urine Color YELLOW Urine Appearance CLOUDY Urine pH 5.0 Ur Specific [place] 1.017 Urine Protein >=500 H Urine Glucose (UA) 50 H Urine Ketones NEGATIVE Urine Blood MODERATE H Urine Nitrite NEGATIVE Ur Leukocyte Esterase NEGATIVE Urine WBC (Auto) 4 Urine RBC (Auto) 9 11/27/19 11/27/19 16:07 17:20 WBC RBC Hgb Hct MCV MCH MCHC RDW Plt Count Seg Neutrophils % Carbonic Acid 1.00 L HCO3/H2CO3 Ratio 18:1 ABG pH 7.37 ABG pCO2 33.3 L ABG pO2 127.2 H ABG HCO3 18.8 L ABG O2 Saturation 98.5 H ABG Base Excess -5.5 FiO2 4L Sodium Potassium Chloride Carbon Dioxide Anion Gap BUN Creatinine Est GFR ( Amer) Glucose Lactic Acid 4.3 H Calcium Total Bilirubin AST Alkaline Phosphatase Total Protein Albumin Urine Color Urine Appearance Urine pH Ur Specific [place] Urine Protein Urine Glucose (UA) Urine Ketones Urine Blood Urine Nitrite Ur Leukocyte Esterase Urine WBC (Auto) Urine RBC (Auto) 11/27/19 11/27/19 11/27/19 16:07 16:07 16:07 Creatine Kinase 2081 H CK-MB (CK-2) 1.86 Troponin I 0.070 NT-Pro-B Natriuret Pep 05313 H EKG Comments: Twelve-lead EKG. Independently reviewed by me. Probable ectopic atrial rhythm with A-V dissociation. Junctional escape at a physiologic rate. Impressions: Chest X-Ray 11/27/19 15:51 IMPRESSION: HEART ENLARGED WITHOUT FAILURE. NO OTHER SIGNIFICANT RADIOGRAPHIC FINDING IN THE CHEST. Head CT 11/27/19 16:24 IMPRESSION: 1. CHRONIC CHANGES OF ATROPHY AND MICROVASCULAR ISCHEMIA. NO ACUTE PROCESS. 2. INCREASED DENSITY IN THE POSTERIOR SUBCUTANEOUS SOFT TISSUES OF THE UPPER NECK. THIS HAS THE APPEARANCE OF A HEMATOMA. HOWEVER, THIS WAS ALSO PRESENT ON THE PRIOR STUDY FROM 3 WEEKS AGO. RECOMMEND CLINICAL CORRELATION IF THERE HAS BEEN RE- INJURY. MAY ALSO CONSIDER CT OF THE SOFT TISSUES OF THE NECK TO EVALUATE THE FULL EXTENT OF THIS FINDING. EVIDENCE OF ACUTE STROKE: NO. Assessment & Plan - Diagnosis (1) AV dissociation Plan: Although hard to say review of EKG shows ectopic atrial rhythm with A-V dissociation. No urgent indication for pacing given physiologic heart rate from a junctional escape focus. Narrow complex QRS Would recommend continued treatment for possible infectious process-aspiration pneumonia sepsis. We will continue to monitor rhythm. (2) Dementia Qualifiers: Dementia type: Alzheimer's disease Alzheimer's disease onset: unspecified onset Dementia behavioral disturbance: without behavioral disturbance Qualified Code(s): G30.9 - Alzheimer's disease, unspecified; F02.80 - Dementia in other diseases classified elsewhere without behavioral disturbance Plan: Advanced dementia. (3) Aspiration pneumonia Qualifiers: Aspiration pneumonia type: unspecified Laterality: unspecified laterality Lung location: unspecified part of lung Qualified Code(s): J69.0 - Pneumonitis due to inhalation of food and vomit Is this a current diagnosis for this admission?: Yes Plan: Supportive care Antibiotics (4) Chronic kidney disease Qualifiers: Chronic kidney disease stage: stage 4 (severe) Qualified Code(s): N18.4 - Chronic kidney disease, stage 4 (severe) Plan: CKD Hard to assess volume status. Seems euvolemic to dry (mildly) - Notes Notes: No urgent indication for cardiac pacing at this time Treatment of infection and pneumonia Overall poor quality of life due to advanced dementia. This should factor into treatment decisions.
--- NOTE | 2019-11-27 18:46 | PDOC CRITICAL CARE PROG REPORT ---
General Date:: 11/27/19 Hospital Day:: 0 Resuscitation Status: Full Code Events in the past 12 to 24 Hours:: Dehydration, worsening renal failure, 3rd degree HB Review of systems relevant to events:: CV Reason for ICU Addmission:: Evaluation for ICU - Medications: Medications reviewed and adjusted accordingly: Yes Vasopressors:: None Sedation:: None Physical Exam Vital Signs: Temp Pulse Resp BP Pulse Ox 99.1 F 24 H 163/79 H 93 11/27/19 16:01 11/27/19 18:01 11/27/19 18:01 11/27/19 18:01 Intake & Output 11/26/19 11/27/19 11/28/19 06:59 06:59 06:59 Intake Total 1000 Balance 1000 Weight 86.183 kg Weight/Height Weight 86.183 kg Height 5 ft 11 in General appearance: PRESENT: no acute distress Head exam: PRESENT: atraumatic, normocephalic Eye exam: PRESENT: conjunctiva pink, EOMI, PERRLA. ABSENT: scleral icterus Ear exam: PRESENT: normal external ear exam Mouth exam: PRESENT: dry mucosa Respiratory exam: PRESENT: clear to auscultation real. ABSENT: rales, rhonchi, wheezes Cardiovascular exam: PRESENT: irregular rhythm, other - #rd degree HB with accelerated junctional rythym Pulses: PRESENT: normal dorsalis pedis pul GI/Abdominal exam: PRESENT: normal bowel sounds, soft. ABSENT: distended, guarding, mass, organolmegaly, rebound, tenderness Rectal exam: PRESENT: deferred Extremities exam: PRESENT: full ROM. ABSENT: calf tenderness, clubbing, pedal edema Neurological exam: PRESENT: altered, other - Mumbles a word or two. Shakes and nods head. Sometime appropriately. Skin exam: PRESENT: dry, intact, warm. ABSENT: cyanosis, rash Laboratory/Radiographs Laboratory Results: 11/27/19 16:07 11/27/19 16:07 11/27/19 11/27/19 11/27/19 16:07 16:07 16:07 WBC 10.7 H RBC 3.93 L Hgb 11.4 L Hct 34.9 L MCV 89 MCH 29.1 MCHC 32.8 RDW 15.4 H Plt Count 193 Seg Neutrophils % Not Reportable Carbonic Acid HCO3/H2CO3 Ratio ABG pH ABG pCO2 ABG pO2 ABG HCO3 ABG O2 Saturation ABG Base Excess FiO2 Sodium 135.6 L Potassium 4.8 Chloride 98 Carbon Dioxide 22 Anion Gap 16 BUN 45 H Creatinine 4.38 H Est GFR ( Amer) 16 L Glucose 284 H Lactic Acid Calcium 8.6 Total Bilirubin 0.4 AST 43 Alkaline Phosphatase 60 Total Protein 6.5 Albumin 3.1 L Urine Color YELLOW Urine Appearance CLOUDY Urine pH 5.0 Ur Specific [place] 1.017 Urine Protein >=500 H Urine Glucose (UA) 50 H Urine Ketones NEGATIVE Urine Blood MODERATE H Urine Nitrite NEGATIVE Ur Leukocyte Esterase NEGATIVE Urine WBC (Auto) 4 Urine RBC (Auto) 9 11/27/19 11/27/19 16:07 17:20 WBC RBC Hgb Hct MCV MCH MCHC RDW Plt Count Seg Neutrophils % Carbonic Acid 1.00 L HCO3/H2CO3 Ratio 18:1 ABG pH 7.37 ABG pCO2 33.3 L ABG pO2 127.2 H ABG HCO3 18.8 L ABG O2 Saturation 98.5 H ABG Base Excess -5.5 FiO2 4L Sodium Potassium Chloride Carbon Dioxide Anion Gap BUN Creatinine Est GFR ( Amer) Glucose Lactic Acid 4.3 H Calcium Total Bilirubin AST Alkaline Phosphatase Total Protein Albumin Urine Color Urine Appearance Urine pH Ur Specific [place] Urine Protein Urine Glucose (UA) Urine Ketones Urine Blood Urine Nitrite Ur Leukocyte Esterase Urine WBC (Auto) Urine RBC (Auto) 11/27/19 11/27/19 11/27/19 16:07 16:07 16:07 Creatine Kinase 2081 H CK-MB (CK-2) 1.86 Troponin I 0.070 NT-Pro-B Natriuret Pep 40505 H Impressions: Chest X-Ray 11/27/19 15:51 IMPRESSION: HEART ENLARGED WITHOUT FAILURE. NO OTHER SIGNIFICANT RADIOGRAPHIC FINDING IN THE CHEST. Head CT 11/27/19 16:24 IMPRESSION: 1. CHRONIC CHANGES OF ATROPHY AND MICROVASCULAR ISCHEMIA. NO ACUTE PROCESS. 2. INCREASED DENSITY IN THE POSTERIOR SUBCUTANEOUS SOFT TISSUES OF THE UPPER NECK. THIS HAS THE APPEARANCE OF A HEMATOMA. HOWEVER, THIS WAS ALSO PRESENT ON THE PRIOR STUDY FROM 3 WEEKS AGO. RECOMMEND CLINICAL CORRELATION IF THERE HAS BEEN RE- INJURY. MAY ALSO CONSIDER CT OF THE SOFT TISSUES OF THE NECK TO EVALUATE THE FULL EXTENT OF THIS FINDING. EVIDENCE OF ACUTE STROKE: NO. All labs, radiographs, diagnostic studies and EKGs were personally reviewed: Yes In addition, reports of radiographic and diagnostic studies were read: Yes Assessment and Plan Plan Summary: Pt has a HR of 60-83 and a pacemeker will not effect a meaningful therapeutic endpoint. This is true for a temporary or permanent pacer. He may have been in this rhytym for a while he is dehydrated and does not have evidence of a UTI. Aspiration is high on the list. He has acute on chronic with a Cr 4.4 with baseline of 2.5. Normal electrolytes. There is no intervention that will change his treatment in an ICU setting. At this point he does not need an ICU level of care. Dr. Rice also consulted. Critical Time Critical Time (minutes): 35 Level of Care: TELE Anticipated discharge: SNF Within: within 72 hours -: 1. The care of a critical patient is a dynamic process. This note is a pharmaceutical representative synopsis but static in nature. The timeframe for treatments given in order is not necessarily the actual time these treatments may have been done. 2. This patient requires critical care secondary to ongoing requirements for therapy not offered or safe outside the critical care environment. Transfer to a lower level of care will result in altered life or limb morbidity and mortality. 3. Multidisciplinary rounds completed. 4. ABCDE bundle addressed.
[2019-11-27] MEDS ORDERED: ACETAMINOPHEN 650 MG SUPP.RECT PR PRN (19:37)
[2019-11-27] MEDS ORDERED: ACETAMINOPHEN 325 MG TABLET PO PRN (19:37)
[2019-11-27] MEDS ORDERED: MAGNESIUM HYDROXIDE SUSP 30 ML UDCUP PO PRN (19:37)
[2019-11-27] MEDS ORDERED: VANCOMYCIN HCL 0 MG in DEXTROSE 5%-WATER 250 ML IV NR (19:45)
[2019-11-27] MEDS ORDERED: RINGERS SOLUTION,LACTATED 1,000 ML IV PRN (19:48)
[2019-11-27] MEDS ORDERED: GLUCAGON,HUMAN RECOMB 1 MG INJ SUBCUT PRN (19:52)
[2019-11-27] MEDS ORDERED: DEXTROSE 50%-WATER 25 GM/50 ML DISP.SYRIN IV PRN ×2 (19:52)
[2019-11-27] MEDS ORDERED: DEXTROSE 40% GEL 15 GM TUBE PO PRN ×2 (19:52)
[2019-11-27] MEDS ORDERED: MORPHINE SULFATE 10 MG/ML INJ IV PRN (20:08)
[2019-11-27] MEDS ORDERED: PHARMACY COMMUNICATION ORDER MC NR (20:30)
--- NOTE | 2019-11-27 20:31 | PDOC H&P ---
History of Present Illness Admission Date/PCP: 11/27/19 17:58 CONCHITA MARIN MD Patient complains of: Patient was sent over from [facility]. History of Present Illness: RICHARD YATES JR is a 74 year old male who was recently transferred to [facility] from [facility]. He was at [facility] for atrial fibrillation. He has underlying dementia. Please see the discharge documentation for further details. The patient was sent to the emergency department from [facility]. Because of his edison re dementia and his acute critical illness he is unable to provide any information. The patient appears to be septic from pneumonia. Past Medical History Past Medical History: Obtained from old records as patient is unable to communicate Cardiac Medical History: Reports: Atrial Fibrillation, Hypertension Endocrine Medical History: Reports: Diabetes Mellitus Type 2 Renal/ Medical History: Reports: Chronic Kidney Disease Psychiatric Medical History: Reports: Dementia Past Surgical History Past Surgical History: Unable to obtain Social History Information Source: [facility] Records, Outside Facility Records Lives with: Longterm - Currently at [facility] Smoking Status: Unknown if Ever Smoked Electronic Cigarette use?: No - Patient unable to provide information Frequency of Alcohol Use: None Hx Recreational Drug Use: No - Patient unable to provide information Hx Prescription Drug Abuse: No - Patient unable to provide information - Advance Directive Resuscitation Status: Full Code Surrogate healthcare decision maker:: Per paperwork from [facility] Family History Family History: Other - Unable to at obtain due to patient's current mental status Parental Family History Reviewed: No Children Family History Reviewed: No Sibling(s) Family History Reviewed.: No Medication/Allergy Home Medications: Donepezil HCl [Aricept] 10 mg PO DAILY 11/06/18 Glimepiride [Amaryl 4 mg Tablet] 4 mg PO DAILY 11/06/18 Lisinopril [Zestril] 10 mg PO DAILY 11/06/18 Apixaban [Eliquis 2.5 mg Tablet] 2.5 mg PO BID tablet 11/15/18 Levothyroxine Sodium [Synthroid 0.1 mg Tablet] 0.2 mg PO Q6AM tablet 11/15/18 Allergies/Adverse Reactions: No Known Allergies Allergy (Verified 11/06/18 11:38) Review of Systems ROS unobtainable: Due to mental status Physical Exam Vital Signs: Temp Pulse Resp BP Pulse Ox 98.8 F 18 146/90 H 99 11/27/19 19:29 11/27/19 20:02 11/27/19 20:02 11/27/19 20:02 Intake & Output 11/26/19 11/27/19 11/28/19 06:59 06:59 06:59 Intake Total 1000 Balance 1000 Weight 86.183 kg General appearance: PRESENT: other - Mild to moderate distress with inability to communicate Head exam: PRESENT: atraumatic, normocephalic Eye exam: PRESENT: conjunctiva pink. ABSENT: scleral icterus Ear exam: PRESENT: normal external ear exam. ABSENT: bleeding, drainage Respiratory exam: PRESENT: rhonchi - Bilateral, symmetrical, tachypnea. ABSENT: wheezes Cardiovascular exam: PRESENT: bradycardia, irregular rhythm GI/Abdominal exam: PRESENT: diminished bowel sounds, soft. ABSENT: distended, tenderness Rectal exam: PRESENT: deferred Extremities exam: ABSENT: pedal edema Musculoskeletal exam: PRESENT: normal inspection. ABSENT: ambulatory Neurological exam: PRESENT: altered - Eyes are open but does not make eye contact. Nonverbal. Psychiatric exam: ABSENT: agitated Focused psych exam: PRESENT: other - No verbal interaction. Does not attempt to make eye contact. Unknown what his baseline dementia status is.. ABSENT: restlessness Results Laboratory Results: 11/27/19 16:07 11/27/19 16:07 11/27/19 11/27/19 11/27/19 16:07 16:07 16:07 WBC 10.7 H RBC 3.93 L Hgb 11.4 L Hct 34.9 L MCV 89 MCH 29.1 MCHC 32.8 RDW 15.4 H Plt Count 193 Seg Neutrophils % Not Reportable Carbonic Acid HCO3/H2CO3 Ratio ABG pH ABG pCO2 ABG pO2 ABG HCO3 ABG O2 Saturation ABG Base Excess FiO2 Sodium 135.6 L Potassium 4.8 Chloride 98 Carbon Dioxide 22 Anion Gap 16 BUN 45 H Creatinine 4.38 H Est GFR ( Amer) 16 L Glucose 284 H Lactic Acid Calcium 8.6 Total Bilirubin 0.4 AST 43 Alkaline Phosphatase 60 Total Protein 6.5 Albumin 3.1 L Urine Color YELLOW Urine Appearance CLOUDY Urine pH 5.0 Ur Specific [place] 1.017 Urine Protein >=500 H Urine Glucose (UA) 50 H Urine Ketones NEGATIVE Urine Blood MODERATE H Urine Nitrite NEGATIVE Ur Leukocyte Esterase NEGATIVE Urine WBC (Auto) 4 Urine RBC (Auto) 9 11/27/19 11/27/19 11/27/19 16:07 17:20 19:30 WBC RBC Hgb Hct MCV MCH MCHC RDW Plt Count Seg Neutrophils % Carbonic Acid 1.00 L HCO3/H2CO3 Ratio 18:1 ABG pH 7.37 ABG pCO2 33.3 L ABG pO2 127.2 H ABG HCO3 18.8 L ABG O2 Saturation 98.5 H ABG Base Excess -5.5 FiO2 4L Sodium Potassium Chloride Carbon Dioxide Anion Gap BUN Creatinine Est GFR ( Amer) Glucose Lactic Acid 4.3 H 2.3 H Calcium Total Bilirubin AST Alkaline Phosphatase Total Protein Albumin Urine Color Urine Appearance Urine pH Ur Specific [place] Urine Protein Urine Glucose (UA) Urine Ketones Urine Blood Urine Nitrite Ur Leukocyte Esterase Urine WBC (Auto) Urine RBC (Auto) 11/27/19 11/27/19 11/27/19 16:07 16:07 16:07 Creatine Kinase 2081 H CK-MB (CK-2) 1.86 Troponin I 0.070 NT-Pro-B Natriuret Pep 83245 H Impressions: Chest X-Ray 11/27/19 15:51 IMPRESSION: HEART ENLARGED WITHOUT FAILURE. NO OTHER SIGNIFICANT RADIOGRAPHIC FINDING IN THE CHEST. Head CT 11/27/19 16:24 IMPRESSION: 1. CHRONIC CHANGES OF ATROPHY AND MICROVASCULAR ISCHEMIA. NO ACUTE PROCESS. 2. INCREASED DENSITY IN THE POSTERIOR SUBCUTANEOUS SOFT TISSUES OF THE UPPER NECK. THIS HAS THE APPEARANCE OF A HEMATOMA. HOWEVER, THIS WAS ALSO PRESENT ON THE PRIOR STUDY FROM 3 WEEKS AGO. RECOMMEND CLINICAL CORRELATION IF THERE HAS BEEN RE- INJURY. MAY ALSO CONSIDER CT OF THE SOFT TISSUES OF THE NECK TO EVALUA TE THE FULL EXTENT OF THIS FINDING. EVIDENCE OF ACUTE STROKE: NO. Assessment and Plan - Diagnosis (1) Sepsis Qualifiers: Sepsis type: sepsis due to unspecified organism Sepsis acute organ dysfunction status: with acute organ dysfunction Severe sepsis acute organ dysfunction type: acute renal failure Acute renal failure type: with acute tubular necrosis Severe sepsis shock status: without septic shock Qualified Code(s): A41.9 - Sepsis, unspecified organism; R65.20 - Severe sepsis without septic shock; N17.0 - Acute kidney failure with tubular necrosis Is this a current diagnosis for this admission?: Yes Plan: Sepsis most likely due to pneumonia. Unfortunately antibiotics were administered prior to blood cultures being drawn. I have ordered stat blood cultures since the antibiotics have not been on board for a significant amount of time. If there is an overwhelming bacteremia the blood culture should still end up positive. (2) Aspiration pneumonia Qualifiers: Aspiration pneumonia type: unspecified Laterality: unspecified laterality Lung location: unspecified part of lung Qualified Code(s): J69.0 - Pneumonitis due to inhalation of food and vomit Is this a current diagnosis for this admission?: Yes Plan: As we are unable to get a history and based on the clinical presentation aspiration pneumonia makes the most sense. We will treat with broad-spectrum antibiotics at this time and repeat a chest x-ray tomorrow. (3) Rhabdomyolysis Qualifiers: Rhabdomyolysis type: non-traumatic Qualified Code(s): M62.82 - Rhabdomyolysis Is this a current diagnosis for this admission?: Yes Plan: Patient with a creatinine kinase of over 2000. Will monitor levels as we treat his sepsis and utilize aggressive IV fluids. (4) Acute on chronic kidney failure Qualifiers: Acute renal failure type: with acute tubular necrosis Chronic kidney disease stage: stage 3 (moderate) Qualified Code(s): N17.0 - Acute kidney failure with tubular necrosis; N18.3 - Chronic kidney disease, stage 3 (moderate) Is this a current diagnosis for this admission?: Yes Plan: Patient normally with stage III chronic kidney disease now with marked change. Will request nephrology consultation in the morning (5) AV dissociation Is this a current diagnosis for this admission?: Yes Plan: The patient has been seen by cardiology. Will monitor on telemetry. (6) Hypothyroidism Qualifiers: Hypothyroidism type: unspecified Qualified Code(s): E03.9 - Hypothyroidism, unspecified Is this a current diagnosis for this admission?: Yes Plan: There is significant discrepancy between what the [facility] has listed for thyroid medication dosing and what he was discharged on. For the time being and due to his bradycardia I will utilize 100 mcg of levothyroxine IV daily (7) Dementia Qualifiers: Dementia type: Alzheimer's disease Alzheimer's disease onset: unspecified onset Dementia behavioral disturbance: without behavioral disturbance Qualified Code(s): G30.9 - Alzheimer's disease, unspecified; F02.80 - Dementia in other diseases classified elsewhere without behavioral disturbance Is this a current diagnosis for this admission?: Yes Plan: Currently unable to swallow safely therefore will resume Aricept when patient can safely take oral medications (8) Hypertension Qualifiers: Hypertension type: essential hypertension Qualified Code(s): I10 - Essential (primary) hypertension Is this a current diagnosis for this admission?: Yes Plan: The patient does not appear to have a safe swallow. IV hydralazine for the time being. Will not likely utilize IV FAY inhibitors due to the acute on chronic kidney function. - Plan Summary Summary: This unfortunate 74-year-old patient is quite ill. We are treating for sepsis, rhabdo and acute on chronic kidney injury. Current cardiac issues are likely related to his acute illness. We will continue to monitor closely and discuss with family regarding consideration of changing CODE STATUS. - Time Time Spent with patient: 35 or more minutes Medications reviewed and adjusted accordingly: Yes - Inpatient Certification Based on my medical assessment, after consideration of the patient's comorbidities, presenting symptoms, or acuity I expect that the services needed warrant INPATIENT care.: Yes I certify that my determination is in accordance with my understanding of Medicare's requirements for reasonable and necessary INPATIENT services [42 CFR 412.3e].: Yes Medical Necessity: Need Close Monitoring Due to Risk of Patient Decompensation, Need For IV Fluids, Need For Continuous Telemetry Monitoring, Need for IV Anti biotics, Risk of Complication if Not Cared For in Hospital Post Hospital Care: D/C Fish Header Documentation
[2019-11-27] MEDS: FUROSEMIDE INJ/PF 20 MG/2 ML SDV IV SCH (21:02)
[2019-11-27] MEDS: HEPARIN SOD (PORCINE) 5,000 UNIT/ML 1 ML VIAL SUBCUT SCH (21:03)
[2019-11-27] MEDS ORDERED: PIPERACILLIN SODIUM/TAZOBACTAM 2.25 GM in NORMAL SALINE 50 ML IV SCH (22:00)
[2019-11-28] MEDS ORDERED: PIPERACILLIN SODIUM/TAZOBACTAM 4.5 GM in NORMAL SALINE 100 ML IV SCH ×2
[2019-11-28] MEDS ORDERED: PIPERACILLIN SODIUM/TAZOBACTAM 2.25 GM in NORMAL SALINE 50 ML IV SCH ×4
[2019-11-28] MEDS ORDERED: INFLUENZA QUAD (6MOS+) 2019-20 VAC 0.5 ML SYR IM ONE (00:13)
[2019-11-28] MEDS: INSULIN LISPRO 100 UNIT/ML 3 ML VIAL SUBCUT SCH ×4 (01:19→18:00)
[2019-11-28] MEDS ORDERED: PIPERACILLIN/TAZOBACTAM 2.25 GM VIAL IV ONE (02:41)
[2019-11-28 02:52] LABS: ANION GAP 10 (5-19); BLOOD UREA NITROGEN 46 mg/dL (7-20); CALCIUM 8.6 mg/dL (8.4-10.2); CARBON DIOXIDE 24 mmol/L (22-30); CHLORIDE 104 mmol/L (98-107); GLUCOSE 134 mg/dL (75-110); POTASSIUM 5.7 mmol/L (3.6-5.0)
[2019-11-28] MEDS: PIPERACILLIN SODIUM/TAZOBACTAM 2.25 GM in NORMAL SALINE 50 ML IV SCH ×4 (03:53→22:08)
[2019-11-28 05:39] LABS: ABSOLUTE LYMPHOCYTES (AUTO) 0.7 10^3/uL (0.5-4.7); ABSOLUTE MONOCYTES (AUTO) 0.6 10^3/uL (0.1-1.4); ABSOLUTE NEUT (AUTO) 7.9 10^3/uL (1.7-8.2); BASOPHILS % (AUTO) 0.3 % (0-2); HEMATOCRIT 31.7 % (37.9-51.0); HEMOGLOBIN 10.6 g/dL (13.5-17.0); LYMPHOCYTES % (AUTO) 7.7 % (13-45); MEAN CORPUSCULAR HEMOGLOBIN 29.1 pg (27.0-33.4); MEAN CORPUSCULAR HGB CONC 33.3 g/dL (32.0-36.0); MEAN CORPUSCULAR VOLUME 87 fl (80-97); MONOCYTES % (AUTO) 6.6 % (3-13); PLATELET COUNT 174 10^3/uL (150-450); RED BLOOD COUNT 3.63 10^6/uL (4.35-5.55); RED CELL DISTRIBUTION WIDTH 15.4 % (11.5-14.0); SEGMENTED NEUTROPHILS % (AUTO) 85.4 % (42-78); TOTAL CELLS COUNTED % (AUTO) 100 %; WHITE BLOOD COUNT 9.3 10^3/uL (4.0-10.5)
[2019-11-28 05:57] LABS: ALBUMIN 2.7 g/dL (3.5-5.0); ANION GAP 8 (5-19); BLOOD UREA NITROGEN 45 mg/dL (7-20); CALCIUM 8.2 mg/dL (8.4-10.2); CARBON DIOXIDE 24 mmol/L (22-30); CHLORIDE 104 mmol/L (98-107); CREATINE KINASE 1590 U/L (55-170); GLUCOSE 90 mg/dL (75-110); PHOSPHORUS 4.3 mg/dL (2.5-4.5); POTASSIUM 4.9 mmol/L (3.6-5.0)
[2019-11-28] MEDS: HEPARIN SOD (PORCINE) 5,000 UNIT/ML 1 ML VIAL SUBCUT SCH ×3 (06:20→22:09)
[2019-11-28 06:46] LABS: ARTERIAL BLOOD BASE EXCESS -3.3 mmol/L; ARTERIAL BLOOD H2CO3 1.14 mmol/L (1.05-1.35); ARTERIAL BLOOD HCO3 21.5 mmol/L (20-24); ARTERIAL BLOOD O2 SATURATION 98.4 % (94-98); ARTERIAL BLOOD PCO2 37.8 mmHg (35-45); ARTERIAL BLOOD PH 7.37 (7.35-7.45); ARTERIAL BLOOD PO2 126.1 mmHg (80-100); ARTERIAL BLOOD TOTAL CO2 22.7 mmol/L (23-27)
[2019-11-28 06:47] LABS: ARTERIAL BLOOD FIO2 32%
--- NOTE | 2019-11-28 07:49 | EKG REPORT ---
SEVERITY:- ABNORMAL ECG - SECOND DEGREE AVB, MOBITZ-1 INFERIOR INFARCT, AGE INDETERMINATE : Confirmed by: Kvng Zelaya MD 28-Nov-2019 07:48:44
[2019-11-28] MEDS ORDERED: NORMAL SALINE 1000 ML 1,000 ML IV PRN (09:04)
--- NOTE | 2019-11-28 09:12 | PDOC PROGRESS REPORT ---
Subjective Progress Note for:: 11/28/19 Subjective:: The patient does have his eyes open this morning. He does respond to some questions. He still only oriented to person. He has been exhibiting bradycardia as well. Reason For Visit: SEPSIS, PNEUMONIA, DEMENTIA, ARRHYTHMIA Physical Exam Vital Signs: Temp Pulse Resp BP Pulse Ox 99.5 F 47 L 26 H 168/68 H 99 11/28/19 07:34 11/28/19 07:34 11/28/19 07:34 11/28/19 07:34 11/28/19 07:34 Intake & Output 11/27/19 11/28/19 11/29/19 06:59 06:59 06:59 Intake Total 1000 Output Total 950 Balance 50 Weight 92.9 kg General appearance: PRESENT: no acute distress, cooperative, well-developed Head exam: PRESENT: atraumatic, normocephalic Eye exam: PRESENT: conjunctiva pink. ABSENT: scleral icterus Ear exam: PRESENT: normal external ear exam. ABSENT: bleeding, drainage Mouth exam: PRESENT: dry mucosa, tongue midline Neck exam: PRESENT: other - Hematoma posterior neck Respiratory exam: PRESENT: rhonchi - Bilateral, symmetrical, unlabored. ABSENT: accessory muscle use, tachypnea, wheezes Cardiovascular exam: PRESENT: bradycardia, irregular rhythm, other - Difficult to auscultate due to coarse breath sounds GI/Abdominal exam: PRESENT: diminished bowel sounds, soft. ABSENT: distended, tenderness Rectal exam: PRESENT: deferred Gentrourinary exam: PRESENT: indwelling catheter Extremities exam: ABSENT: pedal edema Musculoskeletal exam: PRESENT: normal inspection. ABSENT: ambulatory Neurological exam: PRESENT: awake, oriented to person. ABSENT: alert - Continues to doze off intermittently Psychiatric exam: PRESENT: flat affect. ABSENT: agitated, anxious Focused psych exam: PRESENT: other - Will maintain communication for short periods and then closes eyes and seems to fall asleep. Skin exam: PRESENT: dry, normal color, warm. ABSENT: rash Results Laboratory Results: 11/28/19 05:24 11/28/19 05:24 11/27/19 11/27/19 11/27/19 16:07 16:07 16:07 WBC 10.7 H RBC 3.93 L Hgb 11.4 L Hct 34.9 L MCV 89 MCH 29.1 MCHC 32.8 RDW 15.4 H Plt Count 193 Seg Neutrophils % Not Reportable Carbonic Acid HCO3/H2CO3 Ratio ABG pH ABG pCO2 ABG pO2 ABG HCO3 ABG O2 Saturation ABG Base Excess FiO2 Sodium 135.6 L Potassium 4.8 Chloride 98 Carbon Dioxide 22 Anion Gap 16 BUN 45 H Creatinine 4.38 H Est GFR ( Amer) 16 L Glucose 284 H Lactic Acid Calcium 8.6 Phosphorus Magnesium Total Bilirubin 0.4 AST 43 Alkaline Phosphatase 60 Total Protein 6.5 Albumin 3.1 L Urine Color YELLOW Urine Appearance CLOUDY Urine pH 5.0 Ur Specific [place] 1.017 Urine Protein >=500 H Urine Glucose (UA) 50 H Urine Ketones NEGATIVE Urine Blood MODERATE H Urine Nitrite NEGATIVE Ur Leukocyte Esterase NEGATIVE Urine WBC (Auto) 4 Urine RBC (Auto) 9 11/27/19 11/27/19 11/27/19 16:07 17:20 19:30 WBC RBC Hgb Hct MCV MCH MCHC RDW Plt Count Seg Neutrophils % Carbonic Acid 1.00 L HCO3/H2CO3 Ratio 18:1 ABG pH 7.37 ABG pCO2 33.3 L ABG pO2 127.2 H ABG HCO3 18.8 L ABG O2 Saturation 98.5 H ABG Base Excess -5.5 FiO2 4L Sodium Potassium Chloride Carbon Dioxide Anion Gap BUN Creatinine Est GFR ( Amer) Glucose Lactic Acid 4.3 H 2.3 H Calcium Phosphorus Magnesium Total Bilirubin AST Alkaline Phosphatase Total Protein Albumin Urine Color Urine Appearance Urine pH Ur Specific [place] Urine Protein Urine Glucose (UA) Urine Ketones Urine Blood Urine Nitrite Ur Leukocyte Esterase Urine WBC (Auto) Urine RBC (Auto) 11/27/19 11/27/19 11/28/19 20:35 23:39 02:28 WBC RBC Hgb Hct MCV MCH MCHC RDW Plt Count Seg Neutrophils % Carbonic Acid HCO3/H2CO3 Ratio ABG pH ABG pCO2 ABG pO2 ABG HCO3 ABG O2 Saturation ABG Base Excess FiO2 Sodium Potassium Chloride Carbon Dioxide Anion Gap BUN Creatinine Est GFR ( Amer) Glucose Lactic Acid 2.0 2.2 H 2.0 Calcium Phosphorus Magnesium Total Bilirubin AST Alkaline Phosphatase Total Protein Albumin Urine Color Urine Appearance Urine pH Ur Specific [place] Urine Protein Urine Glucose (UA) Urine Ketones Urine Blood Urine Nitrite Ur Leukocyte Esterase Urine WBC (Auto) Urine RBC (Auto) 11/28/19 11/28/19 11/28/19 02:28 05:24 05:24 WBC RBC Hgb Hct MCV MCH MCHC RDW Plt Count Seg Neutrophils % Carbonic Acid HCO3/H2CO3 Ratio ABG pH ABG pCO2 ABG pO2 ABG HCO3 ABG O2 Saturation ABG Base Excess FiO2 Sodium 138.4 135.8 L Potassium 5.7 H 4.9 Chloride 104 104 Carbon Dioxide 24 24 Anion Gap 10 8 BUN 46 H 45 H Creatinine 4.24 H 4.13 H Est GFR ( Amer) 17 L 17 L Glucose 134 H 90 Lactic Acid 1.5 Calcium 8.6 8.2 L Phosphorus 4.3 Magnesium 1.9 Total Bilirubin AST Alkaline Phosphatase Total Protein Albumin 2.7 L Urine Color Urine Appearance Urine pH Ur Specific [place] Urine Protein Urine Glucose (UA) Urine Ketones Urine Blood Urine Nitrite Ur Leukocyte Esterase Urine WBC (Auto) Urine RBC (Auto) 11/28/19 11/28/19 05:24 06:36 WBC 9.3 RBC 3.63 L Hgb 10.6 L Hct 31.7 L MCV 87 MCH 29.1 MCHC 33.3 RDW 15.4 H Plt Count 174 Seg Neutrophils % 85.4 H Carbonic Acid 1.14 HCO3/H2CO3 Ratio 18:1 ABG pH 7.37 ABG pCO2 37.8 ABG pO2 126.1 H ABG HCO3 21.5 ABG O2 Saturation 98.4 H ABG Base Excess -3.3 FiO2 32% Sodium Potassium Chloride Carbon Dioxide Anion Gap BUN Creatinine Est GFR ( Amer) Glucose Lactic Acid Calcium Phosphorus Magnesium Total Bilirubin AST Alkaline Phosphatase Total Protein Albumin Urine Color Urine Appearance Urine pH Ur Specific [place] Urine Protein Urine Glucose (UA) Urine Ketones Urine Blood Urine Nitrite Ur Leukocyte Esterase Urine WBC (Auto) Urine RBC (Auto) 11/27/19 11/27/19 11/27/19 16:07 16:07 16:07 Creatine Kinase 2081 H CK-MB (CK-2) 1.86 Troponin I 0.070 NT-Pro-B Natriuret Pep 63014 H 11/28/19 11/28/19 05:24 05:24 Creatine Kinase 1590 H CK-MB (CK-2) Troponin I NT-Pro-B Natriuret Pep 8070 H Impressions: Chest X-Ray 11/27/19 15:51 IMPRESSION: HEART ENLARGED WITHOUT FAILURE. NO OTHER SIGNIFICANT RADIOGRAPHIC FINDING IN THE CHEST. Head CT 11/27/19 16:24 IMPRESSION: 1. CHRONIC CHANGES OF ATROPHY AND MICROVASCULAR ISCHEMIA. NO ACUTE PROCESS. 2. INCREASED DENSITY IN THE POSTERIOR SUBCUTANEOUS SOFT TISSUES OF THE UPPER NECK. THIS HAS THE APPEARANCE OF A HEMATOMA. HOWEVER, THIS WAS ALSO PRESENT ON THE PRIOR STUDY FROM 3 WEEKS AGO. RECOMMEND CLINICAL CORRELATION IF THERE HAS BEEN RE- INJURY. MAY ALSO CONSIDER CT OF THE SOFT TISSUES OF THE NECK TO EVALUATE THE FULL EXTENT OF THIS FINDING. EVIDENCE OF ACUTE STROKE: NO. Assessment and Plan - Diagnosis (1) Sepsis Qualifiers: Sepsis type: sepsis due to unspecified organism Sepsis acute organ dysfunction status: with acute organ dysfunction Severe sepsis acute organ dysfunction type: acute renal failure Acute renal failure type: with acute tubular necrosis Severe sepsis shock status: without septic shock Qualified Code(s): A41.9 - Sepsis, unspecified organism; R65.20 - Severe sepsis without septic shock; N17.0 - Acute kidney failure with tubular necrosis Is this a current diagnosis for this admission?: Yes Plan: Sepsis resolved. Lactic acid is normal. Currently on antibiotics. We will continue to monitor closely. The lungs are the most likely source of infection. (2) Aspiration pneumonia Qualifiers: Aspiration pneumonia type: unspecified Laterality: unspecified laterality Lung location: unspecified part of lung Qualified Code(s): J69.0 - Pneumonitis due to inhalation of food and vomit Is this a current diagnosis for this admission?: Yes Plan: Lungs still sound very coarse. We will continue antibiotic therapy. Will need to monitor for fluid overload. (3) Rhabdomyolysis Qualifiers: Rhabdomyolysis type: non-traumatic Qualified Code(s): M62.82 - Rhabd omyolysis Is this a current diagnosis for this admission?: Yes Plan: Creatinine kinase is down to 1600 from 1999. We will continue fluids and continue to monitor levels. (4) Acute on chronic kidney failure Qualifiers: Acute renal failure type: with acute tubular necrosis Chronic kidney disease stage: stage 3 (moderate) Qualified Code(s): N17.0 - Acute kidney failure with tubular necrosis; N18.3 - Chronic kidney disease, stage 3 (moderate) Is this a current diagnosis for this admission?: Yes Plan: Serum creatinine is slightly better but overall GFR is still very low. Will discuss with nephrology. (5) AV dissociation Is this a current diagnosis for this admission?: Yes Plan: The patient exhibits episodes of severe bradycardia. Sometimes less than 40. This was discussed with cardiology. We will continue to monitor. As long as he maintains his blood pressure there will be no intervention. We will utilize atropine or isoproterenol if he becomes symptomatic. The current thought is that this will resolve as his acute clinical illness improves. (6) Hypothyroidism Qualifiers: Hypothyroidism type: unspecified Qualified Code(s): E03.9 - Hypothyroidism, unspecified Is this a current diagnosis for this admission?: Yes Plan: We will continue the 0.1 mg dose by intravenous daily. (7) Dementia Qualifiers: Dementia type: Alzheimer's disease Alzheimer's disease onset: unspecified onset Dementia behavioral disturbance: without behavioral disturbance Qualified Code(s): G30.9 - Alzheimer's disease, unspecified; F02.80 - Dementia in other diseases classified elsewhere without behavioral disturbance Is this a current diagnosis for this admission?: Yes Plan: Currently holding on Aricept until the patient is safe to take oral medications and food. (8) Hypertension Qualifiers: Hypertension type: essential hypertension Qualified Code(s): I10 - Essential (primary) hypertension Is this a current diagnosis for this admission?: Yes Plan: Blood pressures are still elevated. We will continue the IV furosemide at this time. He has intravenous hydralazine available if needed. Will consult nephrology as well. (9) Hyperkalemia Is this a current diagnosis for this admission?: Yes Plan: The patient was hyperkalemic yesterday. This was likely due to his acute kidney failure. With IV fluids his potassium is normal today. We will continue to monitor. (10) Metabolic encephalopathy Is this a current diagnosis for this admission?: Yes Plan: I did have a chance to speak to the patient's grandson today. His mental status is definitely different from several days ago. This is likely due to the infectious process. We will continue to monitor. I will say he is improved this morning from last evening. - Plan Summary Summary: This unfortunate 74-year-old patient is quite ill. We are treating for sepsis, rhabdo and acute on chronic kidney injury. Current cardiac issues are likely re lated to his acute illness. We will continue to monitor closely and discuss with family regarding consideration of changing CODE STATUS. - Time Time Spent with patient: 25-34 minutes Medications reviewed and adjusted accordingly: Yes Anticipated discharge: SNF
--- NOTE | 2019-11-28 09:40 | RADIOLOGY REPORT (SQ) ---
EXAM DESCRIPTION: CHEST SINGLE VIEW COMPLETED DATE/TIME: 11/28/2019 9:31 am REASON FOR STUDY: Pneumonia COMPARISON: 11/27/2019 EXAM PARAMETERS: NUMBER OF VIEWS: One view. TECHNIQUE: Single frontal radiographic view of the chest acquired. RADIATION DOSE: NA LIMITATIONS: None. FINDINGS: LUNGS AND PLEURA: No opacities, masses or pneumothorax. No pleural effusion. MEDIASTINUM AND HILAR STRUCTURES: No masses. Contour normal. HEART AND VASCULAR STRUCTURES: Heart size is stable. No failure. BONES: No acute findings. HARDWARE: None in the chest. OTHER: No other significant finding. IMPRESSION: Mild cardiomegaly unchanged. No failure or consolidation. TECHNICAL DOCUMENTATION: JOB ID: [id number] [employer]- All Rights Reserved Reading location - IP/workstation name: [email or web address]
[2019-11-28] MEDS ORDERED: ALBUMIN HUMAN 12.5 GM/50 ML RTUINJ IV SCH (10:00)
[2019-11-28] MEDS: PANTOPRAZOLE SODIUM 40 MG VIAL IV SCH (11:43)
[2019-11-28] MEDS: LEVOTHYROXINE SODIUM INJ/PF 0.1 MG SDV IV SCH (11:44)
[2019-11-28] MEDS: FUROSEMIDE INJ/PF 20 MG/2 ML SDV IV SCH ×2 (12:28→22:09)
--- NOTE | 2019-11-28 14:06 | ADVANCED CARE ---
- Diagnosis (1) Sepsis Diagnosis Current: Yes (2) Aspiration pneumonia Diagnosis Current: Yes (3) Rhabdomyolysis Diagnosis Current: Yes (4) Acute on chronic kidney failure Diagnosis Current: Yes (5) AV dissociation Diagnosis Current: Yes (6) Hypothyroidism Diagnosis Current: Yes (7) Dementia Diagnosis Current: Yes (8) Hypertension Diagnosis Current: Yes (9) Hyperkalemia Diagnosis Current: Yes (10) Metabolic encephalopathy Diagnosis Current: Yes Attendance: Had a long discussion with the patient's daughter as well as discussion with the patient's grandson. Discussion with the patient's grandson was at the bedside. I did bring the patient's daughter into a private setting and the nurse and I discussed CODE STATUS and long-term expectations. Resuscitation Status: Full Code Discussion: The patient's daughter reports that he is actually been in the longterm for approximately 6 months. He has showed consistent decline. He is very inactive. We discussed with the patient's wishes would have been several years ago. The daughter agrees that he would not have wanted to live in a longterm for the rest of his life. We reviewed the fact that his illness currently is recoverable but to what extent I am not sure. I also discussed the specifics of DNR versus comfort measures. I told her that if he does not progress then we will have another discussion but for today she understands the ramifications and has agreed to DNR status. I made sure that she understood the difference between comfort measures and DO NOT RESUSCITATE. Once again reviewed the fact that if the patient does recover he will be going back to the longterm. She clearly is disheartened about his current condition. She is slightly overwhelmed and the decisions that were made today are appropriate and I explained that we will wait several days before making any further changes in his treatment plan. The nurse was very supportive during the discussion. The patient's daughter had the opportunity to ask questions. All of the questions were answered to her satisfaction. Care Planning Goals: For this patient decisions for treatment will be based on day-to-day progress. Document(s) Completed: None Time Spent: 45 minutes
[2019-11-28 14:39] LABS: APPEARANCE,URINE SLIGHTLY-CLOUDY; BILIRUBIN,URINE NEGATIVE (NEGATIVE); COLOR,URINE YELLOW; GLUCOSE, URINE NEGATIVE (NEGATIVE); KETONES,URINE NEGATIVE (NEGATIVE); LEUKOCYTE ESTERASE,URINE TRACE (NEGATIVE); NITRITE,URINE NEGATIVE (NEGATIVE); PROTEIN,URINE 100 mg/dL (NEGATIVE); URINE SPECIFIC GRAVITY 1.009; UROBILINOGEN,URINE NEGATIVE mg/dL (<2.0)
--- NOTE | 2019-11-28 17:29 | PDOC PROGRESS REPORT ---
Subjective Progress Note for:: 11/28/19 Subjective:: Patient seen and examined. More awake and responsive. Has been receiving intravenous antibiotics. Reason For Visit: SEPSIS, PNEUMONIA, DEMENTIA, ARRHYTHMIA Physical Exam Vital Signs: Temp Pulse Resp BP Pulse Ox 98.2 F 59 L 18 152/96 H 96 11/28/19 12:19 11/28/19 14:00 11/28/19 12:19 11/28/19 12:19 11/28/19 13:26 Intake & Output 11/27/19 11/28/19 11/29/19 06:59 06:59 06:59 Intake Total 1000 50 Output Total 950 200 Balance 50 -150 Weight 92.9 kg 92.9 kg General appearance: PRESENT: no acute distress, cooperative, well-developed Head exam: PRESENT: atraumatic, normocephalic Eye exam: PRESENT: conjunctiva pink, EOMI Respiratory exam: PRESENT: crackles, decreased breath sounds, symmetrical, unlabored Cardiovascular exam: PRESENT: irregular rhythm, RRR, +S1, +S2 GI/Abdominal exam: PRESENT: soft Rectal exam: PRESENT: deferred Neurological exam: PRESENT: alert, altered, awake, oriented to person Skin exam: PRESENT: dry, intact, normal color Results Laboratory Results: 11/28/19 05:24 11/28/19 05:24 11/27/19 11/27/19 11/27/19 17:20 19:30 20:35 WBC RBC Hgb Hct MCV MCH MCHC RDW Plt Count Seg Neutrophils % Carbonic Acid 1.00 L HCO3/H2CO3 Ratio 18:1 ABG pH 7.37 ABG pCO2 33.3 L ABG pO2 127.2 H ABG HCO3 18.8 L ABG O2 Saturation 98.5 H ABG Base Excess -5.5 FiO2 4L Sodium Potassium Chloride Carbon Dioxide Anion Gap BUN Creatinine Est GFR ( Amer) Glucose Lactic Acid 2.3 H 2.0 Calcium Phosphorus Magnesium Albumin Urine Color Urine Appearance Urine pH Ur Specific [place] Urine Protein Urine Glucose (UA) Urine Ketones Urine Blood Urine Nitrite Ur Leukocyte Esterase Urine WBC (Auto) Urine RBC (Auto) 11/27/19 11/28/19 11/28/19 23:39 02:28 02:28 WBC RBC Hgb Hct MCV MCH MCHC RDW Plt Count Seg Neutrophils % Carbonic Acid HCO3/H2CO3 Ratio ABG pH ABG pCO2 ABG pO2 ABG HCO3 ABG O2 Saturation ABG Base Excess FiO2 Sodium 138.4 Potassium 5.7 H Chloride 104 Carbon Dioxide 24 Anion Gap 10 BUN 46 H Creatinine 4.24 H Est GFR ( Amer) 17 L Glucose 134 H Lactic Acid 2.2 H 2.0 Calcium 8.6 Phosphorus Magnesium 1.9 Albumin Urine Color Urine Appearance Urine pH Ur Specific [place] Urine Protein Urine Glucose (UA) Urine Ketones Urine Blood Urine Nitrite Ur Leukocyte Esterase Urine WBC (Auto) Urine RBC (Auto) 11/28/19 11/28/19 11/28/19 05:24 05:24 05:24 WBC 9.3 RBC 3.63 L Hgb 10.6 L Hct 31.7 L MCV 87 MCH 29.1 MCHC 33.3 RDW 15.4 H Plt Count 174 Seg Neutrophils % 85.4 H Carbonic Acid HCO3/H2CO3 Ratio ABG pH ABG pCO2 ABG pO2 ABG HCO3 ABG O2 Saturation ABG Base Excess FiO2 Sodium 135.8 L Potassium 4.9 Chloride 104 Carbon Dioxide 24 Anion Gap 8 BUN 45 H Creatinine 4.13 H Est GFR ( Amer) 17 L Glucose 90 Lactic Acid 1.5 Calcium 8.2 L Phosphorus 4.3 Magnesium Albumin 2.7 L Urine Color Urine Appearance Urine pH Ur Specific [place] Urine Protein Urine Glucose (UA) Urine Ketones Urine Blood Urine Nitrite Ur Leukocyte Esterase Urine WBC (Auto) Urine RBC (Auto) 11/28/19 11/28/19 06:36 13:10 WBC RBC Hgb Hct MCV MCH MCHC RDW Plt Count Seg Neutrophils % Carbonic Acid 1.14 HCO3/H2CO3 Ratio 18:1 ABG pH 7.37 ABG pCO2 37.8 ABG pO2 126.1 H ABG HCO3 21.5 ABG O2 Saturation 98.4 H ABG Base Excess -3.3 FiO2 32% Sodium Potassium Chloride Carbon Dioxide Anion Gap BUN Creatinine Est GFR ( Amer) Glucose Lactic Acid Calcium Phosphorus Magnesium Albumin Urine Color YELLOW Urine Appearance SLIGHTLY-CLOUDY Urine pH 5.0 Ur Specific [place] 1.009 Urine Protein 100 H Urine Glucose (UA) NEGATIVE Urine Ketones NEGATIVE Urine Blood LARGE H Urine Nitrite NEGATIVE Ur Leukocyte Esterase TRACE H Urine WBC (Auto) 9 Urine RBC (Auto) >182 11/27/19 11/27/19 11/27/19 16:07 16:07 16:07 Creatine Kinase 2081 H CK-MB (CK-2) 1.86 Troponin I 0.070 NT-Pro-B Natriuret Pep [id number] H 11/28/19 11/28/19 05:24 05:24 Creatine Kinase 1590 H CK-MB (CK-2) Troponin I NT-Pro-B Natriuret Pep 8070 H EKG Comments: Telemetry shows atrial rhythm. Likely ectopic. Ventricular rate is 56 bpm. A- V dissociation Impressions: Head CT 11/27/19 16:24 IMPRESSION: 1. CHRONIC CHANGES OF ATROPHY AND MICROVASCULAR ISCHEMIA. NO ACUTE PROCESS. 2. INCREASED DENSITY IN THE POSTERIOR SUBCUTANEOUS SOFT TISSUES OF THE UPPER NECK. THIS HAS THE APPEARANCE OF A HEMATOMA. HOWEVER, THIS WAS ALSO PRESENT ON THE PRIOR STUDY FROM 3 WEEKS AGO. RECOMMEND CLINICAL CORRELATION IF THERE HAS BEEN RE- INJURY. MAY ALSO CONSIDER CT OF THE SOFT TISSUES OF THE NECK TO EVALUATE THE FULL EXTENT OF THIS FINDING. EVIDENCE OF ACUTE STROKE: NO. Chest X-Ray 11/28/19 06:00 IMPRESSION: Mild cardiomegaly unchanged. No failure or consolidation. Assessment & Plan - Diagnosis (1) AV dissociation Is this a current diagnosis for this admission?: Yes Plan: Ectopic atrial rhythm with A-V dissociation. May be related to sepsis. No urgent indication for cardiac pacing. If patient does become bradycardic he may respond to intravenous atropine or intravenous isoproterenol. With the present heart rate of 56 bpm and narrow ventricular escape this is not necessary. (2) Dementia Qualifiers: Dementia type: Alzheimer's disease Alzheimer's disease onset: unspecified onset Dementia behavioral disturbance: without behavioral disturbance Qualified Code(s): G30.9 - Alzheimer's disease, unspecified; F02.80 - Dementia in other diseases classified elsewhere without behavioral disturbance Is this a current diagnosis for this admission?: Yes Plan: Supportive care. Family is present. Goals of care have to be defined (3) Aspiration pneumonia Qualifiers: Aspiration pneumonia type: unspecified Laterality: unspecified laterality Lung location: unspecified part of lung Qualified Code(s): J69.0 - Pneumonitis due to inhalation of food and vomit Is this a current diagnosis for this admission?: Yes Plan: Intravenous antibiotics. Pulmonary toilet. Supportive care. Aspiration risk. (4) Chronic kidney disease Qualifiers: Chronic kidney disease stage: stage 4 (severe) Qualified Code(s): N18.4 - Chronic kidney disease, stage 4 (severe) Plan: Recent worsening in renal function. Monitor creatinine. ? Encephalopathy is partially due to uremia
[2019-11-28 18:56] LABS: ALBUMIN 3.1 g/dL (3.5-5.0); ANION GAP 8 (5-19); BLOOD UREA NITROGEN 47 mg/dL (7-20); CALCIUM 8.4 mg/dL (8.4-10.2); CARBON DIOXIDE 23 mmol/L (22-30); CHLORIDE 105 mmol/L (98-107); GLUCOSE 80 mg/dL (75-110); PHOSPHORUS 4.1 mg/dL (2.5-4.5)
[2019-11-28] MEDS ORDERED: PHARMACY COMMUNICATION ORDER MC NR (19:15)
[2019-11-28] MEDS ORDERED: MAGNESIUM HYDROXIDE SUSP 30 ML UDCUP NG PRN (19:30)
[2019-11-28] MEDS ORDERED: ACETAMINOPHEN SOLN 325 MG/10.15 ML UDCUP NG PRN (19:31)
[2019-11-28] MEDS: DEXTROSE 5%-NORMAL SALINE 1,000 ML IV PRN (20:19)
[2019-11-28] MEDS ORDERED: SODIUM POLYSTYRENE SULFONATE 15 GM/60 ML NG SCH (22:00)
[2019-11-28] MEDS ORDERED: SODIUM POLYSTYRENE SULFONATE 15 GM/60 ML PR SCH (22:00)
[2019-11-29] MEDS: INSULIN LISPRO 100 UNIT/ML 3 ML VIAL SUBCUT SCH ×4 (01:50→18:13)
[2019-11-29] MEDS: PIPERACILLIN SODIUM/TAZOBACTAM 2.25 GM in NORMAL SALINE 50 ML IV SCH ×4 (04:35→21:25)
[2019-11-29 05:13] LABS: HEMATOCRIT 32.4 % (37.9-51.0); HEMOGLOBIN 10.9 g/dL (13.5-17.0); MEAN CORPUSCULAR HEMOGLOBIN 29.3 pg (27.0-33.4); MEAN CORPUSCULAR HGB CONC 33.6 g/dL (32.0-36.0); MEAN CORPUSCULAR VOLUME 87 fl (80-97); PLATELET COUNT 181 10^3/uL (150-450); RED CELL DISTRIBUTION WIDTH 15.3 % (11.5-14.0); WHITE BLOOD COUNT 6.1 10^3/uL (4.0-10.5)
[2019-11-29 05:38] LABS: ALBUMIN 3.3 g/dL (3.5-5.0); ALKALINE PHOSPHATASE 37 U/L (38-126); ANION GAP 11 (5-19); ASPARTATE AMINO TRANSFERASE 44 U/L (17-59); BILIRUBIN,DIRECT 0.4 mg/dL (0.0-0.4); BILIRUBIN,TOTAL 0.4 mg/dL (0.2-1.3); BLOOD UREA NITROGEN 46 mg/dL (7-20); CALCIUM 8.3 mg/dL (8.4-10.2); CARBON DIOXIDE 24 mmol/L (22-30); CHLORIDE 104 mmol/L (98-107); GLUCOSE 112 mg/dL (75-110); TOTAL PROTEIN 6.7 g/dL (6.3-8.2)
[2019-11-29 05:45] LABS: POTASSIUM 4.8 mmol/L (3.6-5.0)
[2019-11-29] MEDS: DEXTROSE 5%-NORMAL SALINE 1,000 ML IV PRN ×3 (06:10→22:50)
[2019-11-29] MEDS: HEPARIN SOD (PORCINE) 5,000 UNIT/ML 1 ML VIAL SUBCUT SCH ×3 (06:57→22:59)
[2019-11-29] MEDS ORDERED: ALBUMIN HUMAN 25 GM/100 ML RTUINJ IV SCH (10:00)
--- NOTE | 2019-11-29 10:23 | PDOC CONSULTATION ---
Consultation Consult Date: 11/29/19 Provider Consulted: EDMAR LAUREANO Consult reason:: I was asked to see the patient due to worsening kidney function in the background of chronic kidney disease. History of Present Illness Admission Date/PCP: 11/27/19 17:58 CONCHITA MARIN MD History of Present Illness: RICHARD YATES JR is a 74 year old male who is of [place] half-way resident with history of advanced dementia, atrial fibrillation, hypothyroidism, hypertension, chronic kidney disease stage IV and diabetes mellitus type 2 who was brought in from the half-way on November 27 because of low-grade fever and altered mental status 3 days prior to presentation. Due to advanced karin ia the patient could not really give any kind of history so all the information's are gathered from the patient's previous records and documentations from other providers during this admission. Initial working diagnosis for the patient includes sepsis, aspiration pneumonia and possible dehydration. In the emergency room the patient was found to have new third degree AV block so cardiology is, Dr. Rice was consulted. He has asked the patient to have A-V dissociation and did not recommend any pacemaker. Patient was also initially assessed by alarm installer who assessed the patient did not need any ICU care admission at that time. Patient was initially given IV fluid boluses and was started on IV Zosyn and IV vancomycin. In terms of the kidney function the patient has a baseline chronic kidney disease stage IV with baseline creatinine of 2.5-2.7 and EGFR baseline at 20-30. When he got admitted he had a BUN of 45, creatinine of 4.38 with EGFR of 16. Currently he had a BUN of 46, creatinine of 4.39 with EGFR of 16. He developed hyperkalemia with potassium of 6.0 yesterday so he was given Kayexalate 60 g per rectum ordered as every 12h. His potassium is now 4.8. He is also on furosemide 20 mg IV every 12 hours. For the last 24 hours the patient had about 3075 mL of urine output. His initial urinalysis showed protein of 100, large blood from a catheterized specimen, trace leukocyte esterase and WBC of only 9. His blood cultures so far is negative x2. Patient's chest x-rays on admission and today showed cardiomegaly without any evidence of pulmonary congestion nor any report of consolidation. When I tried talking to him today he could not really tell me much. But he did say that he feels pretty good. He denies any shortness of breath or chest pain. He did cough without sputum production while I was in the room. Past Medical History Cardiac Medical History: Reports: Atrial Fibrillation, Hypertension-primary Endocrine Medical History: Reports: Diabetes Mellitus Type 2, Hypothyroidism Renal/ Medical History: Reports: Chronic Kidney Disease Stage IV Psychiatric Medical History: Reports: Dementia Hematology Medical History: Reports Anemia of Chronic Kidney Disease Past Surgical History Past Surgical Note: Unable to obtain. Social History Information Source: [facility] Records Lives with: Snf - Currently at [place] Smoking Status: Unknown if Ever Smoked Electronic Cigarette use?: No - Patient unable to provide information Frequency of Alcohol Use: None Hx Recreational Drug Use: No Hx Prescription Drug Abuse: No - Patient unable to provide information - Advance Directive Resuscitation Status: Full Code Family History Family History: Unable to obtain due to mental status. Parental Family History Reviewed: No Children Family History Reviewed: No Sibling(s) Family History Reviewed.: No Medication/Allergy Home Medications: Apixaban [Eliquis 2.5 mg Tablet] 2.5 mg PO Q12 11/28/19 Donepezil HCl [Aricept] 10 mg PO QHS 11/28/19 Levothyroxine Sodium [Synthroid 0.025 mg Tablet] 0.025 mg PO Q6AM 11/28/19 Lisinopril [Prinivil 10 mg Tablet] 10 mg PO DAILY 11/28/19 Allergies/Adverse Reactions: No Known Allergies Allergy (Verified 11/06/18 11:38) Review of Systems ROS unobtainable: Due to mental status Review of Systems: Very limited response from patient who denies chest pains, shortness of breath with some cough. Physical Exam Vital Signs: Temp Pulse Resp BP Pulse Ox 98.3 F 66 22 H 129/92 H 98 11/29/19 07:41 11/29/19 07:41 11/29/19 07:41 11/29/19 07:41 11/29/19 07:41 Intake & Output 11/28/19 11/29/19 11/30/19 06:59 06:59 06:59 Intake Total 1000 1150 50 Output Total 950 3075 Balance 50 -1925 50 Weight 92.9 kg 93.6 kg Exam: General appearance: No acute distress, cooperative, fairly developed and fairly nourished Head exam: PRESENT: atraumatic, normocephalic Eye exam: PRESENT: Conjunctiva pale, EOMI, PERRLA. ABSENT: conjunctival injection, scleral icterus Mouth exam: PRESENT: moist, neck supple, tongue midline Neck exam: PRESENT: full ROM. ABSENT: carotid bruit, JVD, lymphadenopathy, thyromegaly Respiratory exam: PRESENT: Diminished to auscultation bilaterally. Minimal anterior wheezing ABSENT: rales, rhonchi, stridor Cardiovascular exam: PRESENT: Irregular, +S1, +S2. ABSENT: systolic murmur Pulses: PRESENT: normal radial pulses, normal dorsalis pedis pulses GI/Abdominal exam: PRESENT: normal bowel sounds, soft. ABSENT: guarding, mass, tenderness Rectal exam: Deferred Extremities exam: PRESENT: full ROM. ABSENT: calf tenderness, pedal edema Musculoskeletal: PRESENT: full ROM. ABSENT: deformity Neurological exam: PRESENT: alert, Awake, Oriented to person only but not to place and time, reflexes normal, CN II-XII grossly intact. ABSENT: motor sensory deficit Psychiatric exam: PRESENT: appropriate affect, normal mood. ABSENT: homicidal ideation, suicidal ideation Skin exam: PRESENT: intact, dry, warm. ABSENT: rash Results Laboratory Results: 11/29/19 04:17 11/29/19 04:17 11/28/19 11/28/19 11/29/19 13:10 18:25 04:17 WBC 6.1 RBC 3.70 L Hgb 10.9 L Hct 32.4 L MCV 87 MCH 29.3 MCHC 33.6 RDW 15.3 H Plt Count 181 Sodium 136.1 L Potassium 6.0 H* D Chloride 105 Carbon Dioxide 23 Anion Gap 8 BUN 47 H Creatinine 4.04 H Est GFR ( Amer) 18 L Glucose 80 Calcium 8.4 Phosphorus 4.1 Magnesium Total Bilirubin AST Alkaline Phosphatase Total Protein Albumin 3.1 L Urine Color YELLOW Urine Appearance SLIGHTLY-CLOUDY Urine pH 5.0 Ur Specific [place] 1.009 Urine Protein 100 H Urine Glucose (UA) NEGATIVE Urine Ketones NEGATIVE Urine Blood LARGE H Urine Nitrite NEGATIVE Ur Leukocyte Esterase TRACE H Urine WBC (Auto) 9 Urine RBC (Auto) >182 11/29/19 04:17 WBC RBC Hgb Hct MCV MCH MCHC RDW Plt Count Sodium 139.0 Potassium 4.8 D Chloride 104 Carbon Dioxide 24 Anion Gap 11 BUN 46 H Creatinine 4.39 H Est GFR ( Amer) 16 L Glucose 112 H Calcium 8.3 L Phosphorus Magnesium 1.8 Total Bilirubin 0.4 AST 44 Alkaline Phosphatase 37 L Total Protein 6.7 Albumin 3.3 L Urine Color Urine Appearance Urine pH Ur Specific [place] Urine Protein Urine Glucose (UA) Urine Ketones Urine Blood Urine Nitrite Ur Leukocyte Esterase Urine WBC (Auto) Urine RBC (Auto) 11/27/19 11/27/19 11/27/19 16:07 16:07 16:07 Creatine Kinase 2081 H CK-MB (CK-2) 1.86 Troponin I 0.070 NT-Pro-B Natriuret Pep [id number] H 11/28/19 11/28/19 05:24 05:24 Creatine Kinase 1590 H CK-MB (CK-2) Troponin I NT-Pro-B Natriuret Pep 8070 H Impressions: Head CT 11/27/19 16:24 IMPRESSION: 1. CHRONIC CHANGES OF ATROPHY AND MICROVASCULAR ISCHEMIA. NO ACUTE PROCESS. 2. INCREASED DENSITY IN THE POSTERIOR SUBCUTANEOUS SOFT TISSUES OF THE UPPER NECK. THIS HAS THE APPEARANCE OF A HEMATOMA. HOWEVER, THIS WAS ALSO PRESENT ON THE PRIOR STUDY FROM 3 WEEKS AGO. RECOMMEND CLINICAL CORRELATION IF THERE HAS BEEN RE- INJURY. MAY ALSO CONSIDER CT OF THE SOFT TISSUES OF THE NECK TO EVAL UATE THE FULL EXTENT OF THIS FINDING. EVIDENCE OF ACUTE STROKE: NO. Chest X-Ray 11/28/19 06:00 IMPRESSION: Mild cardiomegaly unchanged. No failure or consolidation. Assessment & Plan - Diagnosis (1) Acute kidney injury superimposed on chronic kidney disease Is this a current diagnosis for this admission?: Yes Plan: Patient is nonoliguric. Most likely secondary to prerenal factors including effect of arrhythmia, sepsis and possible mild volume depletion due to poor oral intake. Recommend gentle IV fluid hydration and treat all other chronic comorbidities including the sepsis and continue to monitor the patient's heart rhythm. I do not think the patient needs aggressive IV diuresis as the patient is likely to be either euvolemic or mildly volume depleted. He is not in any pulmonary congestion. Discontinue Lasix at this time. Avoid nephrotoxic medications. Adjust antibiotics according to kidney function and monitor vancomycin levels well. Patient does not require any renal replacement therapy at this time nor is he a candidate for any kind of renal replacement therapy or better acute or chronic given the patient's comorbidities and advanced dementia. Renal replacement therapy is not going to change the course of all his other medical issues and will not improve the patient's quality of life. (2) Sepsis Qualifiers: Sepsis acute organ dysfunction status: with acute organ dysfunction Severe sepsis acute organ dysfunction type: acute renal failure Is this a current diagnosis for this admission?: Yes Plan: Patient on IV Zosyn and IV vancomycin. Defer management to hospitalist service. (3) Aspiration pneumonia Qualifiers: Aspiration pneumonia type: unspecified Laterality: unspecified laterality Lung location: unspecified part of lung Qualified Code(s): J69.0 - Pneumonitis due to inhalation of food and vomit Is this a current diagnosis for this admission?: Yes (4) AV dissociation Is this a current diagnosis for this admission?: Yes Plan: Broodmare Foreman, Dr. Rice did not recommend any pacemaker at this time. (5) Dementia Qualifiers: Dementia type: Alzheimer's disease Alzheimer's disease onset: unspecified onset Dementia behavioral disturbance: without behavioral disturbance Qualified Code(s): G30.9 - Alzheimer's disease, unspecified; F02.80 - Dementia in other diseases classified elsewhere without behavioral disturbance Is this a current diagnosis for this admission?: Yes (6) Hyperkalemia Is this a current diagnosis for this admission?: Yes Plan: Resolved. Discontinue Kayexalate. (7) Anemia in chronic kidney disease (CKD) Is this a current diagnosis for this admission?: Yes Plan: Check iron panel. (8) Chronic kidney disease (CKD), stage IV (severe) Is this a current diagnosis for this admission?: Yes Plan: Likely secondary to combination of diabetes, hypertension and microvascular disease. Patient has minimal proteinuria. Check PTH. He is not a candidate for any chronic renal replacement therapy at any time. (9) Hypertension Qualifiers: Hypertension type: essential hypertension Qualified Code(s): I10 - Essential (primary) hypertension Is this a current diagnosis for this admission?: Yes Plan: Acceptable control. (10) Hypothyroidism Qualifiers: Hypothyroidism type: unspecified Qualified Code(s): E03.9 - Hypothyroidism, unspecified Is this a current diagnosis for this admission?: Yes - Notes Notes: Thank you very much for this consultation. Discussed the case with Dr. Castillo. - Time Time Spent: 50 to 70 Minutes
[2019-11-29] MEDS: LEVOTHYROXINE SODIUM INJ/PF 0.1 MG SDV IV SCH (10:35)
[2019-11-29] MEDS: PANTOPRAZOLE SODIUM 40 MG VIAL IV SCH (10:35)
[2019-11-29] MEDS: VANCOMYCIN HCL 1,000 MG in DEXTROSE 5%-WATER 250 ML IV SCH (10:36)
[2019-11-29 12:23] LABS: ABSOLUTE RETICS # 0.024 10^6/uL (0.028-0.122); RETICULOCYTE COUNT (AUTO) 0.62 % (0.66-2.85)
[2019-11-29 13:22] LABS: IRON(TIBC) 21.4 ug/dL (49-181)
[2019-11-29 14:40] LABS: FOLATE 5.77 ng/mL (>2.76)
--- NOTE | 2019-11-29 18:55 | PDOC PROGRESS REPORT ---
Subjective Progress Note for:: 11/29/19 Subjective:: The patient is the most awake and alert that I have seen him since admission. He was answering questions albeit with simple answers. He did make eye contact several times. He forked the insertion of a nasogastric tube last night and so the order was discontinued. Reason For Visit: SEPSIS, PNEUMONIA, DEMENTIA, ARRHYTHMIA Physical Exam Vital Signs: Temp Pulse Resp BP Pulse Ox 98.3 F 66 20 161/86 H 96 11/29/19 12:30 11/29/19 14:00 11/29/19 12:30 11/29/19 12:30 11/29/19 13:10 Intake & Output 11/28/19 11/29/19 11/30/19 06:59 06:59 06:59 Intake Total 1000 1150 1450 Output Total 950 3075 Balance 50 -1925 1450 Weight 92.9 kg 93.6 kg 93.6 kg General appearance: PRESENT: no acute distress, cooperative, well-developed Head exam: PRESENT: atraumatic, normocephalic Ear exam: PRESENT: normal external ear exam. ABSENT: bleeding, drainage Mouth exam: PRESENT: moist, tongue midline Respiratory exam: PRESENT: rales - Faint at bases, symmetrical, unlabored. ABSENT: accessory muscle use, rhonchi, tachypnea, wheezes Cardiovascular exam: PRESENT: RRR, +S1, +S2 GI/Abdominal exam: PRESENT: normal bowel sounds, soft. ABSENT: distended, tenderness Rectal exam: PRESENT: deferred Gentrourinary exam: PRESENT: indwelling catheter Extremities exam: ABSENT: pedal edema Musculoskeletal exam: ABSENT: ambulatory Neurological exam: PRESENT: alert, awake, oriented to person. ABSENT: oriented to place, oriented to situation Psychiatric exam: PRESENT: flat affect. ABSENT: agitated, anxious Skin exam: PRESENT: dry, normal color, warm. ABSENT: rash Results Laboratory Results: 11/29/19 04:17 11/29/19 04:17 11/28/19 11/29/19 11/29/19 18:25 04:17 04:17 WBC 6.1 RBC 3.70 L Hgb 10.9 L Hct 32.4 L MCV 87 MCH 29.3 MCHC 33.6 RDW 15.3 H Plt Count 181 Retic Count (auto) Sodium 136.1 L 139.0 Potassium 6.0 H* D 4.8 D Chloride 105 104 Carbon Dioxide 23 24 Anion Gap 8 11 BUN 47 H 46 H Creatinine 4.04 H 4.39 H Est GFR ( Amer) 18 L 16 L Glucose 80 112 H Calcium 8.4 8.3 L Phosphorus 4.1 Magnesium 1.8 Iron TIBC % Saturation Ferritin Total Bilirubin 0.4 AST 44 Alkaline Phosphatase 37 L Total Protein 6.7 Albumin 3.1 L 3.3 L Vitamin B12 Folate PTH Intact 11/29/19 11/29/19 11/29/19 04:17 12:51 12:51 WBC RBC Hgb Hct MCV MCH MCHC RDW Plt Count Retic Count (auto) 0.62 L Sodium Potassium Chloride Carbon Dioxide Anion Gap BUN Creatinine Est GFR ( Amer) Glucose Calcium Phosphorus Magnesium Iron 21.4 L TIBC 195 L % Saturation 11 Ferritin 368.00 Total Bilirubin AST Alkaline Phosphatase Total Protein Albumin Vitamin B12 296.0 Folate 5.77 PTH Intact 101.1 H 11/27/19 11/27/19 11/27/19 16:07 16:07 16:07 Creatine Kinase 2081 H CK-MB (CK-2) 1.86 Troponin I 0.070 NT-Pro-B Natriuret Pep 61235 H 11/28/19 11/28/19 05:24 05:24 Creatine Kinase 1590 H CK-MB (CK-2) Troponin I NT-Pro-B Natriuret Pep 8070 H Impressions: Head CT 11/27/19 16:24 IMPRESSION: 1. CHRONIC CHANGES OF ATROPHY AND MICROVASCULAR ISCHEMIA. NO ACUTE PROCESS. 2. INCREASED DENSITY IN THE POSTERIOR SUBCUTANEOUS SOFT TISSUES OF THE UPPER NECK. THIS HAS THE APPEARANCE OF A HEMATOMA. HOWEVER, THIS WAS ALSO PRESENT ON THE PRIOR STUDY FROM 3 WEEKS AGO. RECOMMEND CLINICAL CORRELATION IF THERE HAS BEEN RE- INJURY. MAY ALSO CONSIDER CT OF THE SOFT TISSUES OF THE NECK TO EVALUATE THE FULL EXTENT OF THIS FINDING. EVIDENCE OF ACUTE STROKE: NO. Chest X-Ray 11/28/19 06:00 IMPRESSION: Mild cardiomegaly unchanged. No failure or consolidation. Assessment and Plan - Diagnosis (1) Aspiration pneumonia Qualifiers: Aspiration pneumonia type: unspecified Laterality: unspecified laterality Lung location: unspecified part of lung Qualified Code(s): J69.0 - Pneumonitis due to inhalation of food and vomit Is this a current diagnosis for this admission?: Yes Plan: Continue current antibiotics. Pharmacy is currently adjusting the dose based on his renal function. (2) Rhabdomyolysis Qualifiers: Rhabdomyolysis type: non-traumatic Qualified Code(s): M62.82 - Rhabdomyolysis Is this a current diagnosis for this admission?: Yes Plan: Creatinine kinase was improving. I will recheck tomorrow. (3) Acute on chronic kidney failure Qualifiers: Acute renal failure type: with acute tubular necrosis Chronic kidney disease stage: stage 3 (moderate) Qualified Code(s): N17.0 - Acute kidney failure with tubular necrosis; N18.3 - Chronic kidney disease, stage 3 (moderate) Is this a current diagnosis for this admission?: Yes Plan: I appreciate Dr. Del Valle's input. The furosemide has been discontinued completely. There is not been an appreciable improvement in his renal function at this time. He is still making adequate urine and we will continue to monitor this closely. (4) AV dissociation Is this a current diagnosis for this admission?: Yes Plan: Currently stable. Continue to monitor on telemetry. Continue to monitor electrolytes. (5) Hypothyroidism Qualifiers: Hypothyroidism type: unspecified Qualified Code(s): E03.9 - Hypothyroidism, unspecified Is this a current diagnosis for this admission?: Yes Plan: Continue current levothyroxine (6) Dementia Qualifiers: Dementia type: Alzheimer's disease Alzheimer's disease onset: unspecified onset Dementia behavioral disturbance: without behavioral disturbance Qualified Code(s): G30.9 - Alzheimer's disease, unspecified; F02.80 - Dementia in other diseases classified elsewhere without behavioral disturbance Is this a current diagnosis for this admission?: Yes Plan: The patient's mental status is clearly improving. Based on discussions with the patient's daughter he is not yet back to baseline however he is noticeably improve from his admission. We will resume Aricept when the patient can take oral medications. (7) Hypertension Qualifiers: Hypertension type: essential hypertension Qualified Code(s): I10 - Essential (primary) hypertension Is this a current diagnosis for this admission?: Yes Plan: Medication administration has been somewhat limited due to the patient's inability to have a safe swallow. He has a modified barium swallow scheduled for tomorrow. If he passes this we will resume oral antihypertensives. (8) Hyperkalemia Is this a current diagnosis for this admission?: Yes Plan: Resolved. We will continue to monitor the serum potassium levels. (9) Metabolic encephalopathy Is this a current diagnosis for this admission?: Yes Plan: Slowly improving (10) Dysphagia Qualifiers: Dysphagia type: unspecified Qualified Code(s): R13.10 - Dysphagia, unspecified Is this a current diagnosis for this admission?: Yes Plan: Speech therapy has evaluated the patient. They feel it is appropriate to perform a modified barium swallow tomorrow. Hopefully the patient will pass this as administration of oral medications and nutrition have been on hold. I did order a nasogastric tube yesterday however the patient for it the insertion and so attempts were discontinued. (11) Sepsis Qualifiers: Sepsis acute organ dysfunction status: with acute organ dysfunction Severe sepsis acute organ dysfunction type: acute renal failure Is this a current diagnosis for this admission?: Yes Plan: Resolved. Continue to monitor closely. - Plan Summary Summary: This unfortunate 74-year-old patient is quite ill. We are treating for sepsis, rhabdo and acute on chronic kidney injury. Current cardiac issues are likely related to his acute illness. We will continue to monitor closely and discuss with family regarding consideration of changing CODE STATUS. - Time Time Spent with patient: 15-24 minutes Medications reviewed and adjusted accordingly: Yes Anticipated discharge: SNF
[2019-11-29] MEDS: HYDRALAZINE HCL INJ/PF 20 MG/1 ML SDV IV PRN (21:26)
[2019-11-30] MEDS: INSULIN LISPRO 100 UNIT/ML 3 ML VIAL SUBCUT SCH ×5 (01:15→22:15)
[2019-11-30] MEDS: PIPERACILLIN SODIUM/TAZOBACTAM 2.25 GM in NORMAL SALINE 50 ML IV SCH ×4 (02:53→22:11)
[2019-11-30 05:45] LABS: ABSOLUTE LYMPHOCYTES (AUTO) 0.5 10^3/uL (0.5-4.7); ABSOLUTE MONOCYTES (AUTO) 0.3 10^3/uL (0.1-1.4); ABSOLUTE NEUT (AUTO) 2.9 10^3/uL (1.7-8.2); BASOPHILS % (AUTO) 0.7 % (0-2); EOSINOPHILS % (AUTO) 1.3 % (0-6); HEMOGLOBIN 10.2 g/dL (13.5-17.0); MEAN CORPUSCULAR HEMOGLOBIN 28.9 pg (27.0-33.4); MEAN CORPUSCULAR VOLUME 88 fl (80-97); MONOCYTES % (AUTO) 8.9 % (3-13); PLATELET COUNT 178 10^3/uL (150-450); RED BLOOD COUNT 3.54 10^6/uL (4.35-5.55); RED CELL DISTRIBUTION WIDTH 15.1 % (11.5-14.0); SEGMENTED NEUTROPHILS % (AUTO) 76.1 % (42-78); TOTAL CELLS COUNTED % (AUTO) 100 %; WHITE BLOOD COUNT 3.8 10^3/uL (4.0-10.5)
[2019-11-30 06:15] LABS: ANION GAP 12 (5-19); BLOOD UREA NITROGEN 41 mg/dL (7-20); CALCIUM 8.2 mg/dL (8.4-10.2); CARBON DIOXIDE 22 mmol/L (22-30); CHLORIDE 106 mmol/L (98-107); CREATINE KINASE 479 U/L (55-170); GLUCOSE 101 mg/dL (75-110); POTASSIUM 4.3 mmol/L (3.6-5.0)
[2019-11-30] MEDS: HEPARIN SOD (PORCINE) 5,000 UNIT/ML 1 ML VIAL SUBCUT SCH ×3 (06:26→22:11)
--- NOTE | 2019-11-30 09:55 | Progress Note ---
Provider Note Provider Note: [facility] Telephone Advice Consultation Chart reviewed. This is a 74-year-old man who lives in a fdc for the past 6 months. He has a history of atrial fibrillation, DM2, HTN, DM2, and CKD w ith baseline creatinine of 2. He was admitted with suspected sepsis as he had leukocytosis and elevated lactic acid. He had a CXR that was negative for consolidation, but clinically he had rhonchi on lungs auscultation per notes. He also had elevated BNP and CK. He was elevated by cardiology and he was found with AV dissociation but pacemaker not recommended at this time per cardiology. He had a CT scan of head that didn't show any acute process, but there was an abnormality in the soft tissue in posterior neck that was present 3 weeks ago (trauma ->hematoma?). His creatinine is 4 probably due to rhabdomyolysis, already evaluated by nephrology but patient non-oliguric, no replacement re commended. Patient has been on vancomycin and zosyn for suspected aspiration pneumonia/sepsis. ID consulted for recommendations. PMH: DM2 HTN Hypothyroidism A fib Dementia CKD Allergies: No Known Allergies Allergy (Verified 11/06/18 11:38) Medications: Apixaban [Eliquis 2.5 mg Tablet] 2.5 mg PO Q12 11/28/19 Donepezil HCl [Aricept] 10 mg PO QHS 11/28/19 Levothyroxine Sodium [Synthroid 0.025 mg Tablet] 0.025 mg PO Q6AM 11/28/19 Lisinopril [Prinivil 10 mg Tablet] 10 mg PO DAILY 11/28/19 Vital Signs: Temp Pulse Resp BP Pulse Ox 98.0 F 52 L 16 132/64 H 98 11/30/19 08:18 11/30/19 08:18 11/30/19 08:18 11/30/19 08:18 11/30/19 08:59 Intake & Output 11/29/19 11/30/19 12/01/19 06:59 06:59 06:59 Intake Total 1150 2600 Output Total 3075 1900 Balance -1925 700 Weight 93.6 kg 92.7 kg Weight/Height Weight 92.7 kg Height 5 ft 11 in Laboratories: 11/30/19 04:37 11/30/19 04:37 MCV 88 fl (80-97) 11/30/19 04:37 MCH 28.9 pg (27.0-33.4) 11/30/19 04:37 MCHC 33.0 g/dL (32.0-36.0) 11/30/19 04:37 RDW 15.1 % (11.5-14.0) H 11/30/19 04:37 Seg Neutrophils % 76.1 % (42-78) 11/30/19 04:37 Retic Count (auto) 0.62 % (0.66-2.85) L 11/29/19 04:17 Carbonic Acid 1.14 mmol/L (1.05-1.35) 11/28/19 06:36 HCO3/H2CO3 Ratio 18:1 11/28/19 06:36 ABG pH 7.37 (7.35-7.45) 11/28/19 06:36 ABG pCO2 37.8 mmHg (35-45) 11/28/19 06:36 ABG pO2 126.1 mmHg (80-100) H 11/28/19 06:36 ABG HCO3 21.5 mmol/L (20-24) 11/28/19 06:36 ABG O2 Saturation 98.4 % (94-98) H 11/28/19 06:36 ABG Base Excess -3.3 mmol/L 11/28/19 06:36 FiO2 32% 11/28/19 06:36 Chloride 106 mmol/L (98-107) 11/30/19 04:37 Carbon Dioxide 22 mmol/L (22-30) 11/30/19 04:37 Anion Gap 12 (5-19) 11/30/19 04:37 Est GFR ( Amer) 17 (>60) L 11/30/19 04:37 Glucose 101 mg/dL (75-110) 11/30/19 04:37 Lactic Acid 1.5 mmol/L (0.7-2.1) 11/28/19 05:24 Calcium 8.2 mg/dL (8.4-10.2) L 11/30/19 04:37 Phosphorus 4.1 mg/dL (2.5-4.5) 11/28/19 18:25 Magnesium 1.7 mg/dL (1.6-2.3) 11/30/19 04:37 Iron 21.4 ug/dL (49-181) L 11/29/19 12:51 TIBC 195 ug/dL (250-450) L 11/29/19 12:51 % Saturation 11 % 11/29/19 12:51 Ferritin 368.00 ng/mL (17.9-464.0) 11/29/19 12:51 Total Bilirubin 0.4 mg/dL (0.2-1.3) 11/29/19 04:17 AST 44 U/L (17-59) 11/29/19 04:17 Alkaline Phosphatase 37 U/L (38-126) L 11/29/19 04:17 Total Protein 6.7 g/dL (6.3-8.2) 11/29/19 04:17 Albumin 3.3 g/dL (3.5-5.0) L 11/29/19 04:17 Vitamin B12 296.0 pg/mL (239-931) 11/29/19 12:51 Folate 5.77 ng/mL (>2.76) 11/29/19 12:51 PTH Intact 101.1 pg/mL (10.0-65.0) H 11/29/19 12:51 Urine Color YELLOW 11/28/19 13:10 Urine Appearance SLIGHTLY-CLOUDY 11/28/19 13:10 Urine pH 5.0 (5.0-9.0) 11/28/19 13:10 Ur Specific [place] 1.009 11/28/19 13:10 Urine Protein 100 mg/dL (NEGATIVE) H 11/28/19 13:10 Urine Glucose (UA) NEGATIVE mg/dL (NEGATIVE) 11/28/19 13:10 Urine Ketones NEGATIVE mg/dL (NEGATIVE) 11/28/19 13:10 Urine Blood LARGE (NEGATIVE) H 11/28/19 13:10 Urine Nitrite NEGATIVE (NEGATIVE) 11/28/19 13:10 Ur Leukocyte Esterase TRACE (NEGATIVE) H 11/28/19 13:10 Urine WBC (Auto) 9 /HPF 11/28/19 13:10 Urine RBC (Auto) >182 /HPF 11/28/19 13:10 11/27/19 11/27/19 11/27/19 16:07 16:07 16:07 Creatine Kinase 2081 H CK-MB (CK-2) 1.86 Troponin I 0.070 NT-Pro-B Natriuret Pep 21321 H 11/28/19 11/28/19 11/30/19 05:24 05:24 04:37 Creatine Kinase 1590 H 479 H CK-MB (CK-2) Troponin I NT-Pro-B Natriuret Pep 8070 H Microbiology: Blood cultures: 11/27 [facility] Radiology: Head CT 11/27/19 16:24 IMPRESSION: 1. CHRONIC CHANGES OF ATROPHY AND MICROVASCULAR ISCHEMIA. NO ACUTE PROCESS. 2. INCREASED DENSITY IN THE POSTERIOR SUBCUTANEOUS SOFT TISSUES OF THE UPPER NECK. THIS HAS THE APPEARANCE OF A HEMATOMA. HOWEVER, THIS WAS ALSO PRESENT ON THE PRIOR STUDY FROM 3 WEEKS AGO. RECOMMEND CLINICAL CORRELATION IF THERE HAS BEEN RE- INJURY. MAY ALSO CONSIDER CT OF THE SOFT TISSUES OF THE NECK TO EVALUATE THE FULL EXTENT OF THIS FINDING. EVIDENCE OF ACUTE STROKE: NO. Chest X-Ray 11/28/19 06:00 IMPRESSION: Mild cardiomegaly unchanged. No failure or consolidation. Assessment and Recommendations: Patient evaluated for possible sepsis with questionable aspiration pneumonia. He has other medical problems that may be contributing to his clinical deterioration which include AV dissociation with elevated proBNP, acute on CKD with rhabdomyolysis. CXR didn't show any infiltrates or consolidations but clinically, he had rhonchi per notes, raising suspicion for aspiration pneumonia. He is not significantly coughing to collect sputum for cultures, but at least this is not consistent with MRSA infection, can discontinue vancomycin. Blood cultures remain negative. Considering that clinically, he has a pulmonary process, can continue zosyn x 5 days. In terms of the neck findings, if suspected abscess can consider CT scan of neck soft tissue to better assess this. Please call if questions. Lotus Almeida MD [facility] ID [phone]
--- NOTE | 2019-11-30 11:29 | ST Inp Modified Barium Swallow ---
Inpatient MBS - General Date: 11/30/19 Date of Onset: 11/27/19 - History -: Medical - patient admitted from SNF on 11/27 with atrial fibrillation. Patient found to be septic from pneumonia. Prior medical history includes dementia. At bedside, patient showing signs of aspiration with PO trials, MBSS recommended. Medications: Medications Reviewed Allergies: No known allergies - Subjective Current Nutritional Means: NPO, IV Fluids Current PO Diet: N/A (NPO) Current Symptoms: Coughing Pain: Patient reports, 0/5 - Objective Assessment: Upright, Left Lateral - Food Trials Food Trials Used: Thin liquids, Pureed, Regular The Patient: Required Assist - Assessment Labial Function: Within Normal Limits Lingual Function: Within Normal Limits Mandibular Function: Within Normal Limits Dentition: Partial Velo-Pharyngeal Function: Unremarkable - Pharyngeal Stage Initiation of Pharyngeal Stage: Delayed - significant pre-swallow pooling in valleculae prior to swallow consistently Decreased Laryngeal Elevation: No Reduced Velo-Pharyngeal Closure: no Reduced Pressure Generation: Yes - mild Reduced Tongue Base Retraction: No Pre-Swallowing Pooling in Valleculae: Significant Pre-Swallowing Pooling in Pyriforms: Mild Reduced Thyro-Hyiod Approximation: No Reduced Epiglottic Excursion: No Reduced Pharyngeal Peristalsis: No Multiple Swallows With: Cleared w/ Dry Swallow Post Swallow Residuals in Valleculae: Mild Post Swallow Residuals in Pyriforms: None - Impression/Summary Laryngeal Penetration: Yes - mild penetration seen with sequential sips of thin liquid, deeper with straw sips than with cup sips Tracheal Aspiration: no Patient Presents With: Pharyngeal stage dysph., Mild-Moderate Risk of Aspiration: Mild Risk Due To: discoordination of the swallow, specifically, bolus entering pharynx prior to initiation of the swallow. This poor timing places the patient at higher risk of aspiration. Reducing rate of consuming liquids helped to reduce penetration and risk of aspiration. Patient also demonstrated some residue in the pharynx after the swallow. A second swallow cleared this well, however, several seconds were needed prior to swallow being triggered. - Recommendations Solid Diet Recommendations: Mechanical Soft, Ground Meat Liquid Diet Recommendations: Thin Strict Aspitarion Precautions: Yes Dysphagia Therapy with FINAL TOUCH UP PAINTER: No Supervision: requires assistance Other Recommendations: Discussed diet recommendations with MD, who is in agreement. Diet order placed by therapist per physician request. - Time Total Time: 30 Total Timed Minutes: 30
--- NOTE | 2019-11-30 11:45 | RADIOLOGY REPORT (SQ) ---
EXAM DESCRIPTION: JUANITO SWALLOW COMPLETED DATE/TIME: 11/30/2019 10:41 am REASON FOR STUDY: MBSSAspiration pneumonia COMPARISON: None. TECHNIQUE: Videofluoroscopic swallowing examination was performed in conjunction with speech patholo gy. Videofluoroscopic imaging was obtained and reviewed and these are the findings: RADIATION DOSE: 2 minutes 38 seconds of fluoroscopy was used. 1 images saved to PACS. LIMITATIONS: None FINDINGS: The patient was brought into the fluoro room and placed upright on a modified barium swall ow chair. The patient was then given multiple consistencies mixed with barium to swallow under live fluoroscopic video guidance. According to the Speech Pathologist there was trace laryngeal penetrati on without aspiration aspiration. IMPRESSION: TRACE LARYNGEAL PENETRATION WITHOUT ASPIRATION. PLEASE SEE SPEECH PATHOLOGIST REPORT FOR OTHER FINDINGS AND RECOMMENDATIONS. COMMENT: Quality ID [id number]: Final reports for procedures using fluoroscopy that document radiation exp osure indices, or exposure time and number of fluorographic images (if radiation exposure indices are not available) TECHNICAL DOCUMENTATION: JOB ID: [id number] [employer]- All Rights Reserved Reading location - IP/workstation name: [email or web address] [id number]
[2019-11-30] MEDS: PANTOPRAZOLE SODIUM 40 MG VIAL IV SCH (12:22)
[2019-11-30] MEDS: LEVOTHYROXINE SODIUM INJ/PF 0.1 MG SDV IV SCH (12:22)
--- NOTE | 2019-11-30 13:10 | PDOC PROGRESS REPORT ---
Subjective Progress Note for:: 11/30/19 Subjective:: He did very well on his modified barium swallow this morning. He now has a diet order. He actually responded appropriately and is very pleased about being able to eat and drink. He still remains extremely deconditioned. We will see how he tolerates his oral diet and if adequate oral intake allows, we will discontinue the IV fluid. Reason For Visit: SEPSIS, PNEUMONIA, DEMENTIA, ARRHYTHMIA Physical Exam Vital Signs: Temp Pulse Resp BP Pulse Ox 98.0 F 52 L 16 132/64 H 98 11/30/19 08:18 11/30/19 08:18 11/30/19 08:18 11/30/19 08:18 11/30/19 08:59 Intake & Output 11/29/19 11/30/19 12/01/19 06:59 06:59 06:59 Intake Total 1150 2600 50 Output Total 3075 1900 Balance -1925 700 50 Weight 93.6 kg 92.7 kg General appearance: PRESENT: no acute distress, cooperative - As best he can, well-developed Head exam: PRESENT: atraumatic, normocephalic Eye exam: PRESENT: conjunctiva pale. ABSENT: scleral icterus Ear exam: PRESENT: normal external ear exam. ABSENT: bleeding, drainage Mouth exam: PRESENT: moist, tongue midline Respiratory exam: PRESENT: rhonchi - Faint rhonchi on the right, symmetrical, unlabored. ABSENT: rales, tachypnea, wheezes Cardiovascular exam: PRESENT: bradycardia, irregular rhythm - Irregularly irregular rhythm with a slow rate GI/Abdominal exam: PRESENT: normal bowel sounds, soft. ABSENT: distended, guarding, tenderness Rectal exam: PRESENT: deferred Gentrourinary exam: PRESENT: indwelling catheter Neurological exam: PRESENT: alert, awake, oriented to person. ABSENT: oriented to place, oriented to time, oriented to situation Psychiatric exam: PRESENT: flat affect. ABSENT: agitated, anxious Results Laboratory Results: 11/30/19 04:37 11/30/19 04:37 11/29/19 11/29/19 11/30/19 12:51 12:51 04:37 WBC 3.8 L RBC 3.54 L Hgb 10.2 L Hct 31.0 L MCV 88 MCH 28.9 MCHC 33.0 RDW 15.1 H Plt Count 178 Seg Neutrophils % 76.1 Sodium Potassium Chloride Carbon Dioxide Anion Gap BUN Creatinine Est GFR ( Amer) Glucose Calcium Magnesium Iron 21.4 L TIBC 195 L % Saturation 11 Ferritin 368.00 Vitamin B12 296.0 Folate 5.77 PTH Intact 101.1 H 11/30/19 04:37 WBC RBC Hgb Hct MCV MCH MCHC RDW Plt Count Seg Neutrophils % Sodium 139.8 Potassium 4.3 Chloride 106 Carbon Dioxide 22 Anion Gap 12 BUN 41 H Creatinine 4.25 H Est GFR ( Amer) 17 L Glucose 101 Calcium 8.2 L Magnesium 1.7 Iron TIBC % Saturation Ferritin Vitamin B12 Folate PTH Intact 11/27/19 11/27/19 11/27/19 16:07 16:07 16:07 Creatine Kinase 2081 H CK-MB (CK-2) 1.86 Troponin I 0.070 NT-Pro-B Natriuret Pep 94128 H 11/28/19 11/28/19 11/30/19 05:24 05:24 04:37 Creatine Kinase 1590 H 479 H CK-MB (CK-2) Troponin I NT-Pro-B Natriuret Pep 8070 H Impressions: Head CT 11/27/19 16:24 IMPRESSION: 1. CHRONIC CHANGES OF ATROPHY AND MICROVASCULAR ISCHEMIA. NO ACUTE PROCESS. 2. INCREASED DENSITY IN THE POSTERIOR SUBCUTANEOUS SOFT TISSUES OF THE UPPER NE CK. THIS HAS THE APPEARANCE OF A HEMATOMA. HOWEVER, THIS WAS ALSO PRESENT ON THE PRIOR STUDY FROM 3 WEEKS AGO. RECOMMEND CLINICAL CORRELATION IF THERE HAS BEEN RE- INJURY. MAY ALSO CONSIDER CT OF THE SOFT TISSUES OF THE NECK TO EVALUATE THE FULL EXTENT OF THIS FINDING. EVIDENCE OF ACUTE STROKE: NO. Chest X-Ray 11/28/19 06:00 IMPRESSION: Mild cardiomegaly unchanged. No failure or consolidation. Modified Barium Swallow 11/30/19 00:00 IMPRESSION: TRACE LARYNGEAL PENETRATION WITHOUT ASPIRATION. PLEASE SEE SPEECH PATHOLOGIST REPORT FOR OTHER FINDINGS AND RECOMMENDATIONS. Assessment and Plan - Diagnosis (1) Aspiration pneumonia Qualifiers: Aspiration pneumonia type: unspecified Laterality: unspecified laterality Lung location: unspecified part of lung Qualified Code(s): J69.0 - Pneumonitis due to inhalation of food and vomit Is this a current diagnosis for this admission?: Yes Plan: Continue antibiotic therapy adjusted for renal function. The patient is on vancomycin and Zosyn. (2) Rhabdomyolysis Qualifiers: Rhabdomyolysis type: non-traumatic Qualified Code(s): M62.82 - Rhabdomyolysis Is this a current diagnosis for this admission?: Yes Plan: Creatinine kinase is significantly improved. It should return to the normal range within a day or 2. (3) Acute on chronic kidney failure Qualifiers: Acute renal failure type: with acute tubular necrosis Chronic kidney disease stage: stage 3 (moderate) Qualified Code(s): N17.0 - Acute kidney failure with tubular necrosis; N18.3 - Chronic kidney disease, stage 3 (moderate) Is this a current diagnosis for this admission?: Yes Plan: Renal function has not significantly improved. We have held his diuretics. Hopefully with the ability to take liquids by mouth it will improve his renal function as well. He continues to produce urine. (4) AV dissociation Is this a current diagnosis for this admission?: Yes Plan: Bradycardia was noticed earlier. He has done this before. Of the last several days he is not had a significant slowing of the heart but today he dropped into the 40s and is currently in the 50s. He is maintaining his blood pressure and so we will continue to monitor. (5) Hypothyroidism Qualifiers: Hypothyroidism type: unspecified Qualified Code(s): E03.9 - Hypothyroidism, unspecified Is this a current diagnosis for this admission?: Yes Plan: Continue levothyroxine 0.1 mg IV daily. We will look to convert to oral dosing once the patient exhibits consistent swallowing. (6) Dementia Qualifiers: Dementia type: Alzheimer's disease Alzheimer's disease onset: unspecified onset Dementia behavioral disturbance: without behavioral disturbance Qualified Code(s): G30.9 - Alzheimer's disease, unspecified; F02.80 - Dementia in other diseases classified elsewhere without behavioral disturbance Is this a current diagnosis for this admission?: Yes Plan: I will resume Aricept now that he is able to swallow (7) Hypertension Qualifiers: Hypertension type: essential hypertension Qualified Code(s): I10 - Essential (primary) hypertension Is this a current diagnosis for this admission?: Yes Plan: In light of his acute on chronic kidney failure I have decided not to continue the lisinopril. Instead I have started amlodipine. We will monitor his blood pressures and adjust medications accordingly. (8) Hyperkalemia Is this a current diagnosis for this admission?: Yes Plan: Resolved (9) Metabolic encephalopathy Is this a current diagnosis for this admission?: Yes Plan: Likely multifactorial but he improves every day. (10) Dysphagia Qualifiers: Dysphagia type: oropharyngeal phase Qualified Code(s): R13.12 - Dysphagia, oropharyngeal phase Is this a current diagnosis for this admission?: Yes Plan: The patient had a modified barium swallow today. I spoke with the speech pathologist. We will try mechanical soft diet with ground meat. Thin liquids but no straws. Because of his profound weakness he will likely need assistance. (11) Sepsis Qualifiers: Sepsis acute organ dysfunction status: with acute organ dysfunction Severe sepsis acute organ dysfunction type: acute renal failure Is this a current diagnosis for this admission?: Yes Plan: Resolved - Plan Summary Summary: This unfortunate 74-year-old patient is quite ill. We are treating for sepsis, rhabdo and acute on chronic kidney injury. Current cardiac issues are likely related to his acute illness. We will continue to monitor closely and discuss with family regarding consideration of changing CODE STATUS. - Time Time Spent with patient: 15-24 minutes Medications reviewed and adjusted accordingly: Yes
[2019-11-30] MEDS: DEXTROSE 5%-NORMAL SALINE 1,000 ML IV PRN (14:47)
[2019-11-30] MEDS: AMLODIPINE BESYLATE 5 MG TABLET PO SCH (14:48)
--- NOTE | 2019-11-30 16:08 | PDOC PROGRESS REPORT ---
Subjective Progress Note for:: 11/30/19 Subjective:: Patient was asleep when I saw him earlier today. He is arousable. He does not verbalize any complaints. He had a modified barium swallow and finally has a diet ordered. He made about 1900 mL of urine output. Reason For Visit: SEPSIS, PNEUMONIA, DEMENTIA, ARRHYTHMIA Physical Exam Vital Signs: Temp Pulse Resp BP Pulse Ox 98.0 F 52 L 16 132/64 H 98 11/30/19 08:18 11/30/19 08:18 11/30/19 08:18 11/30/19 08:18 11/30/19 08:59 Intake & Output 11/29/19 11/30/19 12/01/19 06:59 06:59 06:59 Intake Total 1150 2600 50 Output Total 3075 1900 Balance -1925 700 50 Weight 93.6 kg 92.7 kg Exam: General appearance: PRESENT: no acute distress, cooperative, fairly developed and fairly nourished Head exam: PRESENT: atraumatic, normocephalic Eye exam: PRESENT: conjunctiva pink, PERRLA. ABSENT: scleral icterus Neck exam: ABSENT: JVD Respiratory exam: PRESENT: Coarse breath sounds. Positive rhonchi and wheezing ABSENT: crackles, rales, unlabored Cardiovascular exam: PRESENT: Regular rate rhythm -+S1, +S2. ABSENT: diastolic murmur, systolic murmur GI/Abdominal exam: PRESENT: normal bowel sounds, soft. ABSENT: guarding, mass, tenderness Extremities exam: ABSENT: No edema Neurological exam: PRESENT: alert, awake, oriented to person, place and time. Skin exam: PRESENT: dry, warm, Results Laboratory Results: 11/30/19 04:37 11/30/19 04:37 11/29/19 11/29/19 11/30/19 12:51 12:51 04:37 WBC 3.8 L RBC 3.54 L Hgb 10.2 L Hct 31.0 L MCV 88 MCH 28.9 MCHC 33.0 RDW 15.1 H Plt Count 178 Seg Neutrophils % 76.1 Sodium Potassium Chloride Carbon Dioxide Anion Gap BUN Creatinine Est GFR ( Amer) Glucose Calcium Magnesium Iron 21.4 L TIBC 195 L % Saturation 11 Ferritin 368.00 Vitamin B12 296.0 Folate 5.77 PTH Intact 101.1 H 11/30/19 04:37 WBC RBC Hgb Hct MCV MCH MCHC RDW Plt Count Seg Neutrophils % Sodium 139.8 Potassium 4.3 Chloride 106 Carbon Dioxide 22 Anion Gap 12 BUN 41 H Creatinine 4.25 H Est GFR ( Amer) 17 L Glucose 101 Calcium 8.2 L Magnesium 1.7 Iron TIBC % Saturation Ferritin Vitamin B12 Folate PTH Intact 11/27/19 11/27/19 11/27/19 16:07 16:07 16:07 Creatine Kinase 2081 H CK-MB (CK-2) 1.86 Troponin I 0.070 NT-Pro-B Natriuret Pep 02057 H 11/28/19 11/28/19 11/30/19 05:24 05:24 04:37 Creatine Kinase 1590 H 479 H CK-MB (CK-2) Troponin I NT-Pro-B Natriuret Pep 8070 H Impressions: Head CT 11/27/19 16:24 IMPRESSION: 1. CHRONIC CHANGES OF ATROPHY AND MICROVASCULAR ISCHEMIA. NO ACUTE PROCESS. 2. INCREASED DENSITY IN THE POSTERIOR SUBCUTANEOUS SOFT TISSUES OF THE UPPER NECK. THIS HAS THE APPEARANCE OF A HEMATOMA. HOWEVER, THIS WAS ALSO PRESENT ON THE PRIOR STUDY FROM 3 WEEKS AGO. RECOMMEND CLINICAL CORRELATION IF THERE HAS BEEN RE- INJURY. MAY ALSO CONSIDER CT OF THE SOFT TISSUES OF THE NECK TO EVALUATE THE FULL EXTENT OF THIS FINDING. EVIDENCE OF ACUTE STROKE: NO. Chest X-Ray 11/28/19 06:00 IMPRESSION: Mild cardiomegaly unchanged. No failure or consolidation. Modified Barium Swallow 11/30/19 00:00 IMPRESSION: TRACE LARYNGEAL PENETRATION WITHOUT ASPIRATION. PLEASE SEE SPEECH PATHOLOGIST REPORT FOR OTHER FINDINGS AND RECOMMENDATIONS. Assessment & Plan - Diagnosis (1) Acute kidney injury superimposed on chronic kidney disease Is this a current diagnosis for this admission?: Yes Plan: This is multifactorial causes due to arrhythmia with AV dissociation, sepsis with aspiration pneumonia, volume depletion due to poor oral intake and possibly if at all mild rhabdomyolysis. Patient is currently nonoliguric. Patient's kidney function is minimally improved. His electrolytes are acceptable. Continue gentle IV fluids which possibly can be discontinued once the patient has good oral intake. Patient is not a candidate for any acute nor chronic renal replacement therapy given the patient's comorbidities including advanced dementia. Continue current management. (2) Sepsis Qualifiers: Sepsis acute organ dysfunction status: with acute organ dysfunction Severe sepsis acute organ dysfunction type: acute renal failure Is this a current diagnosis for this admission?: Yes (3) Aspiration pneumonia Qualifiers: Aspiration pneumonia type: unspecified Laterality: unspecified laterality Lung location: unspecified part of lung Qualified Code(s): J69.0 - Pneumonitis due to inhalation of food and vomit Is this a current diagnosis for this admission?: Yes Plan: On IV Zosyn and IV vancomycin. Monitor vancomycin levels. (4) AV dissociation Is this a current diagnosis for this admission?: Yes (5) Dementia Qualifiers: Dementia type: Alzheimer's disease Alzheimer's disease onset: unspecified onset Dementia behavioral disturbance: without behavioral disturbance Qualified Code(s): G30.9 - Alzheimer's disease, unspecified; F02.80 - Dementia in other diseases classified elsewhere without behavioral disturbance Is this a current diagnosis for this admission?: Yes (6) Hyperkalemia Is this a current diagnosis for this admission?: Yes Plan: Resolved. (7) Anemia in chronic kidney disease (CKD) Is this a current diagnosis for this admission?: Yes Plan: Currently does not require any Retacrit. (8) Chronic kidney disease (CKD), stage IV (severe) Is this a current diagnosis for this admission?: Yes Plan: Baseline creatinine is about 2.5-2.7. Recommend medical management only. (9) Hypertension Qualifiers: Hypertension type: essential hypertension Qualified Code(s): I10 - Essential (primary) hypertension Is this a current diagnosis for this admission?: Yes (10) Hypothyroidism Qualifiers: Hypothyroidism type: unspecified Qualified Code(s): E03.9 - Hypothyroidism, unspecified Is this a current diagnosis for this admission?: Yes (11) Secondary hyperparathyroidism (of renal origin) Is this a current diagnosis for this admission?: Yes Plan: PTH is minimally elevated at 101.1 with normal phosphorus of 4.1. Continue to monitor for now. (12) Dysphagia Qualifiers: Dysphagia type: unspecified Qualified Code(s): R13.10 - Dysphagia, unspecified Is this a current diagnosis for this admission?: Yes Plan: Recommendation is mechanical ground diet after modified barium swallow. (13) Physical debility Is this a current diagnosis for this admission?: Yes Plan: Patient appears to be so physically debilitated and deconditioned. Considering all his comorbid conditions I think patient may be a candidate for just comfort care measures or hospice. - Notes Notes: Recommend to continue current management and supportive care. No further recommendations and interventions from nephrology standpoint. We will sign off for now. - Time Time with patient: 15-25 minutes
--- NOTE | 2019-11-30 17:48 | EKG REPORT ---
SEVERITY:- ABNORMAL ECG - SINUS BRADYCARDIA SECOND DEGREE, MOBITZ I AVB FIRST DEGREE AV BLOCK LEFT AXIS DEVIATION BORDERLINE R WAVE PROGRESSION, ANTERIOR LEADS : Confirmed by: Kvng Zelaya MD 30-Nov-2019 17:47:33
[2019-11-30] MEDS ORDERED: (PENDING PHARMACY ID) (Donepezil Hcl [Aricept] 10 MG) PO SCH (22:00)
[2019-11-30] MEDS: DONEPEZIL HCL 5 MG TABLET PO SCH (22:12)
[2019-12-01] MEDS: PIPERACILLIN SODIUM/TAZOBACTAM 2.25 GM in NORMAL SALINE 50 ML IV SCH ×4 (02:23→22:16)
[2019-12-01] MEDS: DEXTROSE 5%-NORMAL SALINE 1,000 ML IV PRN (05:39)
[2019-12-01] MEDS: HEPARIN SOD (PORCINE) 5,000 UNIT/ML 1 ML VIAL SUBCUT SCH ×3 (05:43→22:12)
[2019-12-01] MEDS: INSULIN LISPRO 100 UNIT/ML 3 ML VIAL SUBCUT SCH ×4 (09:44→22:12)
[2019-12-01] MEDS: PANTOPRAZOLE SODIUM 40 MG VIAL IV SCH (09:44)
[2019-12-01] MEDS: AMLODIPINE BESYLATE 5 MG TABLET PO SCH (09:44)
[2019-12-01] MEDS: HYDRALAZINE HCL INJ/PF 20 MG/1 ML SDV IV PRN (09:56)
[2019-12-01] MEDS: VANCOMYCIN HCL 1,000 MG in DEXTROSE 5%-WATER 250 ML IV SCH (10:55)
[2019-12-01] MEDS ORDERED: IPRATROPIUM/ALBUTEROL 0.5-2.5 MG/3 ML AMPUL NEB PRN (11:43)
[2019-12-01] MEDS ORDERED: FUROSEMIDE INJ/PF 20 MG/2 ML SDV IV ONE (11:44)
[2019-12-01] MEDS ORDERED: DEXTROSE 5%-NORMAL SALINE 1,000 ML IV PRN (11:48)
--- NOTE | 2019-12-01 11:51 | PDOC PROGRESS REPORT ---
Subjective Progress Note for:: 12/01/19 Subjective:: The patient is more conversant today. He is more alert but no more oriented. He has audible congested breath sounds. He is slumped down on the bed and this may also have an effect. Reason For Visit: SEPSIS, PNEUMONIA, DEMENTIA, ARRHYTHMIA Physical Exam Vital Signs: Temp Pulse Resp BP Pulse Ox 98.2 F 75 16 172/96 H 100 12/01/19 08:46 12/01/19 08:46 12/01/19 08:46 12/01/19 08:46 12/01/19 08:46 Intake & Output 11/30/19 12/01/19 12/02/19 06:59 06:59 06:59 Intake Total 2600 2618 50 Output Total 1900 1100 Balance 700 1518 50 Weight 92.7 kg 93 kg 93 kg General appearance: PRESENT: cooperative - Cooperates as best he can considering his mental status., mild distress, well-developed Head exam: PRESENT: atraumatic, normocephalic Respiratory exam: PRESENT: rhonchi - Rhonchi bilaterally, symmetrical, unlabored. ABSENT: accessory muscle use, rales, tachypnea, wheezes Cardiovascular exam: PRESENT: bradycardia, +S1, +S2 GI/Abdominal exam: PRESENT: normal bowel sounds, soft. ABSENT: distended, guarding, tenderness Rectal exam: PRESENT: deferred Gentrourinary exam: PRESENT: indwelling catheter Extremities exam: ABSENT: pedal edema Neurological exam: PRESENT: alert, awake, oriented to person, CN II-XII grossly intact. ABSENT: oriented to place, oriented to time, oriented to situation Psychiatric exam: PRESENT: appropriate affect. ABSENT: agitated, anxious Results Laboratory Results: 11/30/19 04:37 11/30/19 04:37 11/27/19 11/27/19 11/27/19 16:07 16:07 16:07 Creatine Kinase 2081 H CK-MB (CK-2) 1.86 Troponin I 0.070 NT-Pro-B Natriuret Pep 28081 H 11/28/19 11/28/19 11/30/19 05:24 05:24 04:37 Creatine Kinase 1590 H 479 H CK-MB (CK-2) Troponin I NT-Pro-B Natriuret Pep 8070 H Impressions: Head CT 11/27/19 16:24 IMPRESSION: 1. CHRONIC CHANGES OF ATROPHY AND MICROVASCULAR ISCHEMIA. NO ACUTE PROCESS. 2. INCREASED DENSITY IN THE POSTERIOR SUBCUTANEOUS SOFT TISSUES OF THE UPPER NECK. THIS HAS THE APPEARANCE OF A HEMATOMA. HOWEVER, THIS WAS ALSO PRESENT ON THE PRIOR STUDY FROM 3 WEEKS AGO. RECOMMEND CLINICAL CORRELATION IF THERE HAS BEEN RE- INJURY. MAY ALSO CONSIDER CT OF THE SOFT TISSUES OF THE NECK TO EVALUATE THE FULL EXTENT OF THIS FINDING. EVIDENCE OF ACUTE STROKE: NO. Chest X-Ray 11/28/19 06:00 IMPRESSION: Mild cardiomegaly unchanged. No failure or consolidation. Modified Barium Swallow 11/30/19 00:00 IMPRESSION: TRACE LARYNGEAL PENETRATION WITHOUT ASPIRATION. PLEASE SEE SPEECH PATHOLOGIST REPORT FOR OTHER FINDINGS AND RECOMMENDATIONS. Assessment and Plan - Diagnosis (1) Aspiration pneumonia Qualifiers: Aspiration pneumonia type: unspecified Laterality: unspecified laterality Lung location: unspecified part of lung Qualified Code(s): J69.0 - Pneumonitis due to inhalation of food and vomit Is this a current diagnosis for this admission?: Yes Plan: Continue current antibiotics. If possible I will discontinue the vancomycin as Zosyn should provide good coverage. (2) Acute on chronic kidney failure Qualifiers: Acute renal failure type: with acute tubular necrosis Chronic kidney disease stage: stage 3 (moderate) Qualified Code(s): N17.0 - Acute kidney failure with tubular necrosis; N18.3 - Chronic kidney disease, stage 3 (moderat e) Is this a current diagnosis for this admission?: Yes Plan: Labs are pending. Up to this point no significant change in renal function has occurred. I am checking a vancomycin level. If this is high it may be contributing to the lack of improvement. If it is normal then this may be the patient's new baseline. (3) AV dissociation Is this a current diagnosis for this admission?: Yes Plan: Continue to monitor on telemetry (4) Hypothyroidism Qualifiers: Hypothyroidism type: unspecified Qualified Code(s): E03.9 - Hypothyroidism, unspecified Is this a current diagnosis for this admission?: Yes Plan: We will change back to 200 mcg p.o. daily (5) Dementia Qualifiers: Dementia type: Alzheimer's disease Alzheimer's disease onset: unspecified onset Dementia behavioral disturbance: without behavioral disturbance Qualified Code(s): G30.9 - Alzheimer's disease, unspecified; F02.80 - Dementia in other diseases classified elsewhere without behavioral disturbance Is this a current diagnosis for this admission?: Yes Plan: The patient is back on his Aricept. He is slightly improved today. I am worried that this is his new baseline. (6) Hypertension Qualifiers: Hypertension type: essential hypertension Qualified Code(s): I10 - Essential (primary) hypertension Is this a current diagnosis for this admission?: Yes Plan: Blood pressure is still not adequately controlled. Increase amlodipine to 10 mg daily and add hydralazine 10 mg twice a day (7) Hyperkalemia Is this a current diagnosis for this admission?: Yes Plan: Serum potassium currently normal. Continue to monitor. (8) Metabolic encephalopathy Is this a current diagnosis for this admission?: Yes Plan: It is hard to know if the metabolic encephalopathy is worn off and this is his new baseline. We will continue to monitor. (9) Dysphagia Qualifiers: Dysphagia type: oropharyngeal phase Qualified Code(s): R13.12 - Dysphagia, oropharyngeal phase Is this a current diagnosis for this admission?: Yes Plan: Currently on mechanical soft with ground meats and thin liquids. Speech therapy will continue to work with the patient. (10) Sepsis Qualifiers: Sepsis acute organ dysfunction status: with acute organ dysfunction Severe sepsis acute organ dysfunction type: acute renal failure Is this a current diagnosis for this admission?: Yes Plan: Resolved (11) Rhabdomyolysis Qualifiers: Rhabdomyolysis type: non-traumatic Qualified Code(s): M62.82 - Rhabdomyolysis Is this a current diagnosis for this admission?: Yes Plan: Resolved - Plan Summary Summary: This unfortunate 74-year-old patient is quite ill. We are treating for sepsis, rhabdo and acute on chronic kidney injury. Current cardiac issues are likely related to his acute illness. We will continue to monitor closely and discuss with family regarding consideration of changing CODE STATUS. - Time Time Spent with patient: 15-24 minutes Medications reviewed and adjusted accordingly: Yes Anticipated discharge: SNF
--- NOTE | 2019-12-01 13:09 | RADIOLOGY REPORT (SQ) ---
EXAM DESCRIPTION: CHEST SINGLE VIEW COMPLETED DATE/TIME: 12/01/2019 12:52 pm REASON FOR STUDY: Pneumonia COMPARISON: 11/28/2019, 11/27/2019, 11/06/2018 EXAM PARAMETERS: NUMBER OF VIEWS: One view. TECHNIQUE: Single frontal radiographic view of the chest acquired. RADIATION DOSE: NA LIMITATIONS: Motion artifact FINDINGS: LUNGS AND PLEURA: Right lower lobe airspace disease is present worrisome for pneumonia. Remainder of the lungs are grossly clear. No pleural effusion or pneumothorax. MEDIASTINUM AND HILAR STRUCTURES: No masses. Contour normal. HEART AND VASCULAR STRUCTURES: Stable mild cardiomegaly BONES: No acute findings. HARDWARE: None in the chest. OTHER: No other significant finding. IMPRESSION: Right lower lobe airspace disease is present worrisome for pneumonia TECHNICAL DOCUMENTATION: JOB ID: [id number] [employer]- All Rights Reserved Reading location - IP/workstation name: [email or web address]
[2019-12-01] MEDS ORDERED: ACETAMINOPHEN SOLN 325 MG/10.15 ML UDCUP PO PRN (17:28)
[2019-12-01 18:21] LABS: HEMATOCRIT 32.3 % (37.9-51.0); HEMOGLOBIN 10.8 g/dL (13.5-17.0); MEAN CORPUSCULAR HEMOGLOBIN 29.3 pg (27.0-33.4); MEAN CORPUSCULAR HGB CONC 33.6 g/dL (32.0-36.0); MEAN CORPUSCULAR VOLUME 87 fl (80-97); PLATELET COUNT 201 10^3/uL (150-450); RED CELL DISTRIBUTION WIDTH 15.1 % (11.5-14.0); WHITE BLOOD COUNT 4.2 10^3/uL (4.0-10.5)
[2019-12-01 18:43] LABS: ALBUMIN 3.1 g/dL (3.5-5.0); ANION GAP 11 (5-19); BLOOD UREA NITROGEN 36 mg/dL (7-20); CALCIUM 8.1 mg/dL (8.4-10.2); CARBON DIOXIDE 23 mmol/L (22-30); CHLORIDE 106 mmol/L (98-107); GLUCOSE 119 mg/dL (75-110); PHOSPHORUS 2.8 mg/dL (2.5-4.5); POTASSIUM 4.1 mmol/L (3.6-5.0)
[2019-12-01 18:46] LABS: VANCOMYCIN,TROUGH 14.4 ug/mL (5.0-20.0)
[2019-12-01] MEDS: HYDRALAZINE HCL 10 MG TABLET PO SCH (22:12)
[2019-12-01] MEDS: DONEPEZIL HCL 5 MG TABLET PO SCH (22:12)
[2019-12-02] MEDS: PIPERACILLIN SODIUM/TAZOBACTAM 2.25 GM in NORMAL SALINE 50 ML IV SCH ×4 (03:21→21:35)
[2019-12-02 04:37] LABS: ABSOLUTE EOSINOPHILS # (AUTO) 0.1 10^3/uL (0.0-0.6); ABSOLUTE LYMPHOCYTES (AUTO) 0.9 10^3/uL (0.5-4.7); ABSOLUTE MONOCYTES (AUTO) 0.4 10^3/uL (0.1-1.4); ABSOLUTE NEUT (AUTO) 2.4 10^3/uL (1.7-8.2); BASOPHILS % (AUTO) 0.7 % (0-2); EOSINOPHILS % (AUTO) 2.3 % (0-6); HEMATOCRIT 28.5 % (37.9-51.0); HEMOGLOBIN 9.7 g/dL (13.5-17.0); LYMPHOCYTES % (AUTO) 23.8 % (13-45); MEAN CORPUSCULAR HEMOGLOBIN 29.2 pg (27.0-33.4); MEAN CORPUSCULAR HGB CONC 33.9 g/dL (32.0-36.0); MEAN CORPUSCULAR VOLUME 86 fl (80-97); MONOCYTES % (AUTO) 10.5 % (3-13); PLATELET COUNT 182 10^3/uL (150-450); RED BLOOD COUNT 3.31 10^6/uL (4.35-5.55); RED CELL DISTRIBUTION WIDTH 15.1 % (11.5-14.0); SEGMENTED NEUTROPHILS % (AUTO) 62.7 % (42-78); TOTAL CELLS COUNTED % (AUTO) 100 %; WHITE BLOOD COUNT 3.8 10^3/uL (4.0-10.5)
[2019-12-02 04:48] LABS: ALBUMIN 2.7 g/dL (3.5-5.0); ANION GAP 9 (5-19); BLOOD UREA NITROGEN 38 mg/dL (7-20); CALCIUM 7.6 mg/dL (8.4-10.2); CARBON DIOXIDE 22 mmol/L (22-30); CHLORIDE 108 mmol/L (98-107); GLUCOSE 120 mg/dL (75-110); PHOSPHORUS 2.8 mg/dL (2.5-4.5); POTASSIUM 3.9 mmol/L (3.6-5.0)
[2019-12-02] MEDS: LEVOTHYROXINE SODIUM 0.1 MG TABLET PO SCH (05:28)
[2019-12-02] MEDS: HEPARIN SOD (PORCINE) 5,000 UNIT/ML 1 ML VIAL SUBCUT SCH (05:28)
--- NOTE | 2019-12-02 08:27 | PDOC PROGRESS REPORT ---
Subjective Subjective:: Patient is awake and resting comfortably. He is somewhat fidgety in bed. Urine is slightly dark and his hemoglobin is down and so he may have hematuria Reason For Visit: SEPSIS, PNEUMONIA, DEMENTIA, ARRHYTHMIA Physical Exam Vital Signs: Temp Pulse Resp BP Pulse Ox 99.1 F 42 L 18 156/69 H 100 12/02/19 04:21 12/02/19 04:21 12/02/19 04:21 12/02/19 04:21 12/02/19 04:21 Intake & Output 12/01/19 12/02/19 12/03/19 06:59 06:59 06:59 Intake Total 2618 1778 Output Total 1100 1675 Balance 1518 103 Weight 93 kg 94.5 kg General appearance: PRESENT: no acute distress, cooperative, well-developed Head exam: PRESENT: atraumatic, normocephalic Eye exam: PRESENT: conjunctiva pale. ABSENT: scleral icterus Ear exam: PRESENT: normal external ear exam. ABSENT: bleeding, drainage Mouth exam: PRESENT: moist, tongue midline Respiratory exam: PRESENT: rhonchi - Right base, symmetrical, unlabored. ABSENT: accessory muscle use, prolonged expiratory phas, rales, tachypnea, wheezes Cardiovascular exam: PRESENT: bradycardia, +S1, +S2, other - Discoordination of S1 and S2 GI/Abdominal exam: PRESENT: normal bowel sounds, soft. ABSENT: distended, guarding, rebound, tenderness Rectal exam: PRESENT: deferred Gentrourinary exam: PRESENT: indwelling catheter Extremities exam: ABSENT: joint swelling, pedal edema Musculoskeletal exam: PRESENT: normal inspection. ABSENT: deformity Neurological exam: PRESENT: alert, awake, oriented to person Psychiatric exam: PRESENT: flat affect. ABSENT: agitated, anxious Skin exam: PRESENT: dry, normal color, warm. ABSENT: rash Results Laboratory Results: 12/02/19 03:58 12/02/19 03:58 12/01/19 12/01/19 12/02/19 18:10 18:10 03:58 WBC 4.2 3.8 L RBC 3.70 L 3.31 L Hgb 10.8 L 9.7 L Hct 32.3 L 28.5 L MCV 87 86 MCH 29.3 29.2 MCHC 33.6 33.9 RDW 15.1 H 15.1 H Plt Count 201 182 Seg Neutrophils % 62.7 Sodium 139.7 Potassium 4.1 Chloride 106 Carbon Dioxide 23 Anion Gap 11 BUN 36 H Creatinine 4.27 H Est GFR ( Amer) 16 L Glucose 119 H Calcium 8.1 L Phosphorus 2.8 Magnesium Albumin 3.1 L 12/02/19 03:58 WBC RBC Hgb Hct MCV MCH MCHC RDW Plt Count Seg Neutrophils % Sodium 139.4 Potassium 3.9 Chloride 108 H Carbon Dioxide 22 Anion Gap 9 BUN 38 H Creatinine 4.12 H Est GFR ( Amer) 17 L Glucose 120 H Calcium 7.6 L Phosphorus 2.8 Magnesium 1.7 Albumin 2.7 L 11/27/19 11/27/19 11/27/19 16:07 16:07 16:07 Creatine Kinase 2081 H CK-MB (CK-2) 1.86 Troponin I 0.070 NT-Pro-B Natriuret Pep 76808 H 11/28/19 11/28/19 11/30/19 05:24 05:24 04:37 Creatine Kinase 1590 H 479 H CK-MB (CK-2) Troponin I NT-Pro-B Natriuret Pep 8070 H Impressions: Head CT 11/27/19 16:24 IMPRESSION: 1. CHRONIC CHANGES OF ATROPHY AND MICROVASCULAR ISCHEMIA. NO ACUTE PROCESS. 2. INCREASED DENSITY IN THE POSTERIOR SUBCUTANEOUS SOFT TISSUES OF THE UPPER NECK. THIS HAS THE APPEARANCE OF A HEMATOMA. HOWEVER, THIS WAS ALSO PRESENT ON THE PRIOR STUDY FROM 3 WEEKS AGO. RECOMMEND CLINICAL CORRELATION IF THERE HAS BEEN RE- INJURY. MAY ALSO CONSIDER CT OF THE SOFT TISSUES OF THE NECK TO EVALUATE THE FULL EXTENT OF THIS FINDING. EVIDENCE OF ACUTE STROKE: NO. Modified Barium Swallow 11/30/19 00:00 IMPRESSION: TRACE LARYNGEAL PENETRATION WITHOUT ASPIRATION. PLEASE SEE SPEECH PATHOLOGIST REPORT FOR OTHER FINDINGS AND RECOMMENDATIONS. Chest X-Ray 12/01/19 00:00 IMPRESSION: Right lower lobe airspace disease is present worrisome for pneumonia Assessment and Plan - Diagnosis (1) Aspiration pneumonia Qualifiers: Aspiration pneumonia type: unspecified Laterality: unspecified laterality Lung location: unspecified part of lung Qualified Code(s): J69.0 - Pneumonitis due to inhalation of food and vomit Is this a current diagnosis for this admission?: Yes Plan: We will discontinue vancomycin. Continue Zosyn. Patient appears stable enough to return to [facility]. He is able to swallow and so we will transition to oral antibiotics tomorrow. He still has rhonchi but this will likely take several more days to clear up. He does need strict aspiration precautions. (2) Acute on chronic kidney failure Qualifiers: Acute renal failure type: with acute tubular necrosis Chronic kidney disease stage: stage 3 (moderate) Qualified Code(s): N17.0 - Acute kidney failure with tubular necrosis; N18.3 - Chronic kidney disease, stage 3 (moderate) Is this a current diagnosis for this admission?: Yes Plan: The patient still has stage IV kidney function at this point. This is likely going to be his new baseline. He is still making urine and since he is not a renal replacement therapy candidate conservative monitoring of his function is all that is required. It will be dependent on his oral intake and so keeping in mind strict aspiration precautions, encouragement of p.o. fluids should be undertaken. (3) AV dissociation Is this a current diagnosis for this admission?: Yes Plan: He has been stable in this rhythm. Despite bradycardia he maintains a good pressure. At this point he is not likely an appropriate candidate for pacemaker placement. (4) Hypothyroidism Qualifiers: Hypothyroidism type: unspecified Qualified Code(s): E03.9 - Hypothyroidism, unspecified Is this a current diagnosis for this admission?: Yes Plan: Continue the 200 mcg dose. (5) Dementia Qualifiers: Dementia type: Alzheimer's disease Alzheimer's disease onset: unspecified onset Dementia behavioral disturbance: without behavioral disturbance Qualified Code(s): G30.9 - Alzheimer's disease, unspecified; F02.80 - Dementia in other diseases classified elsewhere without behavioral disturbance Is this a current diagnosis for this admission?: Yes Plan: He is back on his Aricept and he is most likely back to his baseline. (6) Hypertension Qualifiers: Hypertension type: essential hypertension Qualified Code(s): I10 - Essential (primary) hypertension Is this a current diagnosis for this admission?: Yes Plan: His blood pressure has been running high. Because of his acute on chronic kidney function I am avoiding FAY inhibitors or angiotensin receptor blockers. I have increased his amlodipine and added scheduled hydralazine. Because of his bradycardia beta-blockers need to be avoided as well. He may tolerate low-dose diuretic therapy but I would like to give the current medication changes sometime before considering diuretic therapy. (7) Hyperkalemia Is this a current diagnosis for this admission?: Yes Plan: Resolved. Currently with normal potassium (8) Metabolic encephalopathy Is this a current diagnosis for this admission?: Yes Plan: Resolved. Patient is back to baseline (9) Dysphagia Qualifiers: Dysphagia type: oropharyngeal phase Qualified Code(s): R13.12 - Dysphagia, oropharyngeal phase Is this a current diagnosis for this admission?: Yes Plan: Patient is working with speech therapy. I would advise ongoing speech therapy when he returns to [facility]. Strict aspiration precautions need to be in place. His current diet is soft mechanical with ground meats. He is allowed to have thin liquids but no straws. He should have supervision/help with meals. (10) Sepsis Qualifiers: Sepsis acute organ dysfunction status: with acute organ dysfunction Severe sepsis acute organ dysfunction type: acute renal failure Is this a current diagnosis for this admission?: Yes Plan: Resolved with antibiotics and fluids (11) Rhabdomyolysis Qualifiers: Rhabdomyolysis type: non-traumatic Qualified Code(s): M62.82 - Rhabdomyolysis Is this a current diagnosis for this admission?: Yes Plan: Resolved - Plan Summary Summary: This unfortunate 74-year-old patient is quite ill. We are treating for sepsis, rhabdo and acute on chronic kidney injury. Current cardiac issues are likely related to his acute illness. We will continue to monitor closely and discuss with family regarding consideration of changing CODE STATUS. 12/02/2019 Other than his renal function the patient appears to be back at baseline. My plan is to transfer back to [facility] tomorrow to continue antibiotics. He is not a renal replacement therapy candidate and so conservative monitoring of his renal function with medication adjustments accordingly are all that will be required. - Time Time Spent with patient: 15-24 minutes Medications reviewed and adjusted accordingly: Yes Anticipated discharge: SNF Within: within 48 hours
[2019-12-02] MEDS: AMLODIPINE BESYLATE 10 MG TABLET PO SCH (09:34)
[2019-12-02] MEDS: HYDRALAZINE HCL 10 MG TABLET PO SCH ×2 (09:34→21:34)
[2019-12-02] MEDS: INSULIN LISPRO 100 UNIT/ML 3 ML VIAL SUBCUT SCH ×4 (09:34→21:34)
[2019-12-02] MEDS: PANTOPRAZOLE SODIUM 40 MG VIAL IV SCH (09:35)
[2019-12-02] MEDS: DONEPEZIL HCL 5 MG TABLET PO SCH (21:34)
[2019-12-03] MEDS: PIPERACILLIN SODIUM/TAZOBACTAM 2.25 GM in NORMAL SALINE 50 ML IV SCH ×4 (03:21→21:30)
[2019-12-03] MEDS: HYDRALAZINE HCL INJ/PF 20 MG/1 ML SDV IV PRN (04:38)
[2019-12-03] MEDS: LEVOTHYROXINE SODIUM 0.1 MG TABLET PO SCH (06:42)
--- NOTE | 2019-12-03 08:22 | PDOC TRANSFER SUMMARY ---
Impression - Admit/DC Date/PCP Admission Date/Primary Care Provider: 11/27/19 17:58 CONCHITA MARIN MD Discharge Date: 12/03/19 - Discharge Diagnosis (1) Aspiration pneumonia Is this a current diagnosis for this admission?: Yes (2) Acute on chronic kidney failure Is this a current diagnosis for this admission?: Yes (3) AV dissociation Is this a current diagnosis for this admission?: Yes (4) Hypothyroidism Is this a current diagnosis for this admission?: Yes (5) Dementia Is this a current diagnosis for this admission?: Yes (6) Hypertension Is this a current diagnosis for this admission?: Yes (7) Hyperkalemia Is this a current diagnosis for this admission?: Yes (8) Metabolic encephalopathy Is this a current diagnosis for this admission?: Yes (9) Dysphagia Is this a current diagnosis for this admission?: Yes (10) Sepsis Is this a current diagnosis for this admission?: Yes (11) Rhabdomyolysis Is this a current diagnosis for this admission?: Yes - Assessment Summary: This unfortunate 74-year-old patient is quite ill. We are treating for sepsis, rhabdo and acute on chronic kidney injury. Current cardiac issues are likely related to his acute illness. We will continue to monitor closely and discuss with family regarding consideration of changing CODE STATUS. 12/02/2019 Other than his renal function the patient appears to be back at baseline. My plan is to transfer back to [facility] tomorrow to continue antibiotics. He is not a renal replacement therapy candidate and so conservative monitoring of his renal function with medication adjustments accordingly are all that will be required. - Additional Information Resuscitation Status: Full Code Discharge Diet: Cardiac, Other (Comments) - Soft mechanical with ground meats. Thin liquids no straws Discharge Activity: Activity As Tolerated Referrals: CONCHITA MARIN MD [Primary Care Provider] - Follow up as needed Prescriptions: Amox Tr/Potassium Clavulanate [Augmentin 875-125 mg Tablet] 1 tab PO BID 7 Days #14 tablet Famotidine [Pepcid AC] 20 mg PO BID 30 Days #60 tablet Home Medications: Apixaban [Eliquis 2.5 mg Tablet] 2.5 mg PO Q12 11/28/19 Donepezil HCl [Aricept] 10 mg PO QHS 11/28/19 Amlodipine Besylate [Norvasc 10 mg Tablet] 10 mg PO DAILY tablet 12/03/19 Amox Tr/Potassium Clavulanate [Augmentin 875-125 mg Tablet] 1 tab PO BID 7 Days #14 tablet 12/03/19 Famotidine [Pepcid AC] 20 mg PO BID 30 Days #60 tablet 12/03/19 Hydralazine HCl [Apresoline 10 mg Tablet] 10 mg PO Q8 tablet 12/03/19 Levothyroxine Sodium [Synthroid 0.1 mg Tablet] 0.2 mg PO Q6AM tablet 12/03/19 History of Present Illiness History of Present Illness: RICHARD YATES JR is a 74 year old male who was recently transferred to [facility] from [facility]. He was at [facility] for atrial fibrillation. He has underlying dementia. Please see the discharge documentation for further details. The patient was sent to the emergency department from [facility]. Because of his severe dementia and his acute critical illness he is unable to provide any information. The patient appears to be septic from pneumonia. Hospital Course Hospital Course: The patient's recovery was slow. Clinical issues treated; Sepsis secondary to aspiration pneumonia-sepsis resolved with antibiotics and fluids. Aspiration pneumonia-the patient had aspiration pneumonia. He has done well on IV antibiotics. He should complete his therapy with amoxicillin as this will cover anaerobes as well as anaerobic organisms. Bradycardia with A-V dissociation-despite his bradycardia with drops in pulse to less than 50, the patient maintained his blood pressure consistently. In fact we are treating his hypertension. Beta-blockers and calcium channel blockers should be avoided. Acute on chronic kidney failure-possibly due to volume depletion the patient had a marked increase of his serum creatinine. He is in stage IV kidney failure. This is likely his new baseline. He is making urine. I would monitor urine output and his BUN and creatinine. Hyperkalemia-likely due to the kidney failure. This is resolved. Hypertension-despite the bradycardia he was hypertensive. I have stopped his lisinopril because of his kidney failure. He is now on amlodipine and hydralazine and his antihypertensives will likely need to be adjusted. Rhabdomyolysis-on admission the patient serum creatinine kinase was greater than 2000. This has continued to improve and is resolved at this time. Dementia-once the patient had a safe swallow his Metabolic encephalopathy with dysphagia-the patient did not have a safe swallow initially due to his metabolic encephalopathy. He did have a modified barium sw allow and is now on soft mechanical with ground meats and thin liquids with no straws. Continue speech therapy. Hypothyroidism-the patient's TSH was elevated. Old records indicate that he was on 200 mcg of levothyroxine. This is his current dose. Physical Exam Vital Signs: Temp Pulse Resp BP Pulse Ox 98.2 F 59 L 16 184/65 H 98 12/03/19 04:17 12/03/19 08:00 12/03/19 08:00 12/03/19 04:17 12/03/19 08:00 Intake & Output 12/02/19 12/03/19 12/04/19 06:59 06:59 06:59 Intake Total 1778 1797 Output Total 1675 180 Balance 103 1617 Weight 94.5 kg 93.6 kg General appearance: PRESENT: no acute distress, well-developed. ABSENT: cooperative - Limited cooperation due to his dementia Head exam: PRESENT: atraumatic, normocephalic Respiratory exam: PRESENT: clear to auscultation real - Anteriorly, symmetrical, unlabored. ABSENT: rales, rhonchi, tachypnea, wheezes Cardiovascular exam: PRESENT: bradycardia, irregular rhythm GI/Abdominal exam: PRESENT: normal bowel sounds, soft. ABSENT: distended, tenderness Rectal exam: PRESENT: deferred Gentrourinary exam: ABSENT: indwelling catheter - Wilder catheter has been removed Extremities exam: ABSENT: pedal edema Musculoskeletal exam: ABSENT: ambulatory Neurological exam: PRESENT: alert, awake, oriented to person Psychiatric exam: ABSENT: agitated, anxious Focused psych exam: ABSENT: restlessness Results Laboratory Results: WBC 3.8 10^3/uL (4.0-10.5) L 12/02/19 03:58 RBC 3.31 10^6/uL (4.35-5.55) L 12/02/19 03:58 Hgb 9.7 g/dL (13.5-17.0) L 12/02/19 03:58 Hct 28.5 % (37.9-51.0) L 12/02/19 03:58 MCV 86 fl (80-97) 12/02/19 03:58 MCH 29.2 pg (27.0-33.4) 12/02/19 03:58 MCHC 33.9 g/dL (32.0-36.0) 12/02/19 03:58 RDW 15.1 % (11.5-14.0) H 12/02/19 03:58 Plt Count 182 10^3/uL (150-450) 12/02/19 03:58 Lymph % (Auto) 23.8 % (13-45) 12/02/19 03:58 Webb % (Auto) 10.5 % (3-13) 12/02/19 03:58 Eos % (Auto) 2.3 % (0-6) 12/02/19 03:58 Baso % (Auto) 0.7 % (0-2) 12/02/19 03:58 Reticulocyte # 0.024 10^6/uL (0.028-0.122) L 11/29/19 04:17 Absolute Neuts (auto) 2.4 10^3/uL (1.7-8.2) 12/02/19 03:58 Absolute Lymphs (auto) 0.9 10^3/uL (0.5-4.7) 12/02/19 03:58 Absolute Monos (auto) 0.4 10^3/uL (0.1-1.4) 12/02/19 03:58 Absolute Eos (auto) 0.1 10^3/uL (0.0-0.6) 12/02/19 03:58 Absolute Basos (auto) 0.0 10^3/uL (0.0-0.2) 12/02/19 03:58 Total Counted 100 11/27/19 16:07 Seg Neutrophils % 62.7 % (42-78) 12/02/19 03:58 Seg Neuts % (Manual) 89 % (42-78) H 11/27/19 16:07 Lymphocytes % (Manual) 5 % (13-45) L 11/27/19 16:07 Monocytes % (Manual) 5 % (3-13) 11/27/19 16:07 Eosinophils % (Manual) 0 % (0-6) 11/27/19 16:07 Basophils % (Manual) 1 % (0-2) 11/27/19 16:07 Abs Neuts (Manual) 9.5 10^3/uL (1.7-8.2) H 11/27/19 16:07 Abs Lymphs (Manual) 0.5 10^3/uL (0.5-4.7) 11/27/19 16:07 Abs Monocytes (Manual) 0.5 10^3/uL (0.1-1.4) 11/27/19 16:07 Absolute Eos (Manual) 0.0 10^3/uL (0.0-0.6) 11/27/19 16:07 Abs Basophils (Manual) 0.1 10^3/uL (0.0-0.2) 11/27/19 16:07 Platelet Comment ADEQUATE 11/27/19 16:07 Anisocytosis SLIGHT 11/27/19 16:07 Retic Count (auto) 0.62 % (0.66-2.85) L 11/29/19 04:17 Carbonic Acid 1.14 mmol/L (1.05-1.35) 11/28/19 06:36 HCO3/H2CO3 Ratio 18:1 11/28/19 06:36 ABG pH 7.37 (7.35-7.45) 11/28/19 06:36 ABG pCO2 37.8 mmHg (35-45) 11/28/19 06:36 ABG pO2 126.1 mmHg (80-100) H 11/28/19 06:36 ABG HCO3 21.5 mmol/L (20-24) 11/28/19 06:36 ABG Total CO2 22.7 mmol/L (23-27) L 11/28/19 06:36 ABG O2 Saturation 98.4 % (94-98) H 11/28/19 06:36 ABG Base Excess -3.3 mmol/L 11/28/19 06:36 FiO2 32% 11/28/19 06:36 Sodium 139.4 mmol/L (137-145) 12/02/19 03:58 Potassium 3.9 mmol/L (3.6-5.0) 12/02/19 03:58 Chloride 108 mmol/L (98-107) H 12/02/19 03:58 Carbon Dioxide 22 mmol/L (22-30) 12/02/19 03:58 Anion Gap 9 (5-19) 12/02/19 03:58 BUN 38 mg/dL (7-20) H 12/02/19 03:58 Creatinine 4.12 mg/dL (0.52-1.25) H 12/02/19 03:58 Est GFR ( Amer) 17 (>60) L 12/02/19 03:58 Est GFR (MDRD) Non-Af 14 (>60) L 12/02/19 03:58 Glucose 120 mg/dL (75-110) H 12/02/19 03:58 POC Glucose 110 mg/dL (70-110) 12/03/19 07:56 Lactic Acid 1.5 mmol/L (0.7-2.1) 11/28/19 05:24 Calcium 7.6 mg/dL (8.4-10.2) L 12/02/19 03:58 Phosphorus 2.8 mg/dL (2.5-4.5) 12/02/19 03:58 Magnesium 1.7 mg/dL (1.6-2.3) 12/02/19 03:58 Iron 21.4 ug/dL (49-181) L 11/29/19 12:51 TIBC 195 ug/dL (250-450) L 11/29/19 12:51 % Saturation 11 % 11/29/19 12:51 Ferritin 368.00 ng/mL (17.9-464.0) 11/29/19 12:51 Total Bilirubin 0.4 mg/dL (0.2-1.3) 11/29/19 04:17 Direct Bilirubin 0.4 mg/dL (0.0-0.4) 11/29/19 04:17 Neonat Total Bilirubin Not Reportable 11/29/19 04:17 Neonat Direct Bilirubin Not Reportable 11/29/19 04:17 Neonat Indirect Bili Not Reportable 11/29/19 04:17 AST 44 U/L (17-59) 11/29/19 04:17 ALT 15 U/L (<50) 11/29/19 04:17 Alkaline Phosphatase 37 U/L (38-126) L 11/29/19 04:17 Creatine Kinase 479 U/L (55-170) H 11/30/19 04:37 CK-MB (CK-2) 1.86 ng/mL (<4.55) 11/27/19 16:07 Troponin I 0.070 ng/mL 11/27/19 16:07 NT-Pro-B Natriuret Pep 8070 pg/mL (<450) H 11/28/19 05:24 Total Protein 6.7 g/dL (6.3-8.2) 11/29/19 04:17 Albumin 2.7 g/dL (3.5-5.0) L 12/02/19 03:58 Vitamin B12 296.0 pg/mL (239-931) 11/29/19 12:51 Folate 5.77 ng/mL (>2.76) 11/29/19 12:51 PTH Intact 101.1 pg/mL (10.0-65.0) H 11/29/19 12:51 Urine Color YELLOW 11/28/19 13:10 Urine Appearance SLIGHTLY-CLOUDY 11/28/19 13:10 Urine pH 5.0 (5.0-9.0) 11/28/19 13:10 Ur Specific [place] 1.009 11/28/19 13:10 Urine Protein 100 mg/dL (NEGATIVE) H 11/28/19 13:10 Urine Glucose (UA) NEGATIVE mg/dL (NEGATIVE) 11/28/19 13:10 Urine Ketones NEGATIVE mg/dL (NEGATIVE) 11/28/19 13:10 Urine Blood LARGE (NEGATIVE) H 11/28/19 13:10 Urine Nitrite NEGATIVE (NEGATIVE) 11/28/19 13:10 Urine Bilirubin NEGATIVE (NEGATIVE) 11/28/19 13:10 Urine Urobilinogen NEGATIVE mg/dL (<2.0) 11/28/19 13:10 Ur Leukocyte Esterase TRACE (NEGATIVE) H 11/28/19 13:10 Urine WBC (Auto) 9 /HPF 11/28/19 13:10 Urine RBC (Auto) >182 /HPF 11/28/19 13:10 Urine Bacteria (Auto) TRACE /HPF 11/28/19 13:10 Squamous Epi Cells Auto <1 /HPF 11/28/19 13:10 Amorphous Sediment Auto TRACE /HPF 11/27/19 16:07 Urine Yeast (Budding) PRESENT /HPF 11/28/19 13:10 Urine Ascorbic Acid NEGATIVE (NEGATIVE) 11/28/19 13:10 Time Trough Drawn 1810 12/01/19 18:10 Vancomycin Trough 14.4 ug/mL (5.0-20.0) 12/01/19 18:10 Influenza A (Rapid) NEGATIVE (NEGATIVE) 11/27/19 16:43 Influenza B (Rapid) NEGATIVE (NEGATIVE) 11/27/19 16:43 11/27/19 11/27/19 11/28/19 16:07 16:07 05:24 CK-MB (CK-2) 1.86 Troponin I 0.070 NT-Pro-B Natriuret Pep 41791 H 8070 H Impressions: Chest X-Ray 11/27/19 15:51 IMPRESSION: HEART ENLARGED WITHOUT FAILURE. NO OTHER SIGNIFICANT RADIOGRAPHIC FINDING IN THE CHEST. Head CT 11/27/19 16:24 IMPRESSION: 1. CHRONIC CHANGES OF ATROPHY AND MICROVASCULAR ISCHEMIA. NO ACUTE PROCESS. 2. INCREASED DENSITY IN THE POSTERIOR SUBCUTANEOUS SOFT TISSUES OF THE UPPER NECK. THIS HAS THE APPEARANCE OF A HEMATOMA. HOWEVER, THIS WAS ALSO PRESENT ON THE PRIOR STUDY FROM 3 WEEKS AGO. RECOMMEND CLINICAL CORRELATION IF THERE HAS BEEN RE- INJURY. MAY ALSO CONSIDER CT OF THE SOFT TISSUES OF THE NECK TO EVALUATE THE FULL EXTENT OF THIS FINDING. EVIDENCE OF ACUTE STROKE: NO. Chest X-Ray 11/28/19 06:00 IMPRESSION: Mild cardiomegaly unchanged. No failure or consolidation. Modified Barium Swallow 11/30/19 00:00 IMPRESSION: TRACE LARYNGEAL PENETRATION WITHOUT ASPIRATION. PLEASE SEE SPEECH PATHOLOGIST REPORT FOR OTHER FINDINGS AND RECOMMENDATIONS. Chest X-Ray 12/01/19 00:00 IMPRESSION: Right lower lobe airspace disease is present worrisome for pneumonia Plan Health Concerns: New stage IV kidney failure worsened from stage III High risk aspiration Hypertension with underlying bradycardia Plan of Treatment: As outlined above. Return to [facility]. Complete antibiotic therapy. Adjust antihypertensive medications. Continue speech therapy. Goals: Improved swallow. Better blood pressure control. Hopefully his renal function will return to baseline. Time Spent: Greater than 30 Minutes Stroke Is this a Stroke Patient?: No Acute Heart Failure - Is this a Heart Failure Patient?: No
[2019-12-03] MEDS: INSULIN LISPRO 100 UNIT/ML 3 ML VIAL SUBCUT SCH ×4 (08:29→21:36)
[2019-12-03] MEDS: HYDRALAZINE HCL 10 MG TABLET PO SCH ×2 (09:30→21:33)
[2019-12-03] MEDS: AMLODIPINE BESYLATE 10 MG TABLET PO SCH (09:31)
[2019-12-03] MEDS: PANTOPRAZOLE SODIUM 40 MG VIAL IV SCH (09:31)
[2019-12-03] MEDS: DONEPEZIL HCL 5 MG TABLET PO SCH (21:33)
[2019-12-04] MEDS: HYDRALAZINE HCL INJ/PF 20 MG/1 ML SDV IV PRN ×2 (00:27→21:00)
[2019-12-04] MEDS: PIPERACILLIN SODIUM/TAZOBACTAM 2.25 GM in NORMAL SALINE 50 ML IV SCH ×4 (02:55→20:59)
[2019-12-04] MEDS: LEVOTHYROXINE SODIUM 0.1 MG TABLET PO SCH (05:07)
[2019-12-04] MEDS: INSULIN LISPRO 100 UNIT/ML 3 ML VIAL SUBCUT SCH ×4 (08:33→22:36)
[2019-12-04] MEDS: AMLODIPINE BESYLATE 10 MG TABLET PO SCH (10:28)
[2019-12-04] MEDS: HYDRALAZINE HCL 10 MG TABLET PO SCH ×2 (10:28→22:34)
--- NOTE | 2019-12-04 14:07 | Progress Note ---
Provider Note Provider Note: Patient was discharged yesterday afternoon. Apparently, [facility] requested for preauth approval from [facility] prior to accepting him hence patient was not transported to [facility]. Otherwise, no acute event overnight.
[2019-12-04] MEDS: DONEPEZIL HCL 5 MG TABLET PO SCH (22:36)
[2019-12-05] MEDS: LEVOTHYROXINE SODIUM 0.1 MG TABLET PO SCH (05:18)
[2019-12-05] MEDS: INSULIN LISPRO 100 UNIT/ML 3 ML VIAL SUBCUT SCH ×4 (08:48→16:26)
[2019-12-05] MEDS: AMLODIPINE BESYLATE 10 MG TABLET PO SCH (09:19)
[2019-12-05] MEDS: HYDRALAZINE HCL 10 MG TABLET PO SCH (09:25)
--- NOTE | 2019-12-05 11:54 | Progress Note ---
Provider Note Provider Note: No acute event overnight. Denies acute complaints this morning. He does report he continues to feel better. Denies chest pain or shortness of breath. Proceed with discharge to [facility] today.
[2019-12-05 12:26] VITALS: BP 165/80
== END 2019-12-05 16:07 | DRG 871 ==
LOC: ER 15:40 → EH 17:58 → 3N 23:05
PROVIDERS: ADMIT Hospitalist; ATTEND Hospitalist
DX: A41.9 Sepsis, unspecified organism (principal); J69.0 Pneumonitis due to inhalation of food and vomit; G93.41 Metabolic encephalopathy; I48.20 Chronic atrial fibrillation, unspecified; N18.4 Chronic kidney disease, stage 4 (severe); I44.2 Atrioventricular block, complete; M62.82 Rhabdomyolysis; N17.9 Acute kidney failure, unspecified; N25.81 Secondary hyperparathyroidism of renal origin; R65.20 Severe sepsis without septic shock; E87.5 Hyperkalemia; E86.0 Dehydration; R13.12 Dysphagia, oropharyngeal phase; D63.1 Anemia in chronic kidney disease; I12.9 Hypertensive chronic kidney disease with stage 1 through stage 4 chronic kidney disease, or unspecified chronic kidney disease; E11.22 Type 2 diabetes mellitus with diabetic chronic kidney disease; E89.0 Postprocedural hypothyroidism; G30.9 Alzheimer's disease, unspecified; F02.80 Dementia in other diseases classified elsewhere, unspecified severity, without behavioral disturbance, psychotic disturbance, mood disturbance, and anxiety; Z79.02 Long term (current) use of antithrombotics/antiplatelets; Z79.899 Other long term (current) drug therapy
CPT/HCPCS: 36415; 36600; 70450; 71045; 74230; 80048; 80053; 80069; 80202; 81001; 82550; 82553; 82607; 82728; 82746; 82803; 82962; 83540; 83550; 83605; 83735; 83880; 83970; 84484; 85025; 85027; 85045; 87040; 87804; 93005; 93010; 94640; 96361; 96365; 96368; 99285; C9113; J0360; J1644; J1815; J1940; J2270; J2543; J3370; J3490; J7030; J7042; J7060; J7120; J7620; P9047

== ENCOUNTER 2020-04-21 15:20 | Inpatient (IN) | payer MEDICARE, MEDICAID ==
[2020-04-21 15:58] LABS: ABSOLUTE BASOPHILS # (AUTO) 0.1 10^3/uL (0.0-0.2); ABSOLUTE EOSINOPHILS # (AUTO) 0.3 10^3/uL (0.0-0.6); ABSOLUTE LYMPHOCYTES (AUTO) 0.7 10^3/uL (0.5-4.7); ABSOLUTE MONOCYTES (AUTO) 0.7 10^3/uL (0.1-1.4); ABSOLUTE NEUT (AUTO) 7.4 10^3/uL (1.7-8.2); BASOPHILS % (AUTO) 0.6 % (0-2); EOSINOPHILS % (AUTO) 3.6 % (0-6); HEMATOCRIT 25.5 % (37.9-51.0); HEMOGLOBIN 8.2 g/dL (13.5-17.0); LYMPHOCYTES % (AUTO) 7.5 % (13-45); MEAN CORPUSCULAR HEMOGLOBIN 29.1 pg (27.0-33.4); MEAN CORPUSCULAR HGB CONC 32.1 g/dL (32.0-36.0); MEAN CORPUSCULAR VOLUME 91 fl (80-97); MONOCYTES % (AUTO) 7.3 % (3-13); PLATELET COUNT 359 10^3/uL (150-450); RED BLOOD COUNT 2.81 10^6/uL (4.35-5.55); TOTAL CELLS COUNTED % (AUTO) 100 %; WHITE BLOOD COUNT 9.1 10^3/uL (4.0-10.5)
[2020-04-21 16:21] LABS: ALBUMIN 3.4 g/dL (3.5-5.0); ALKALINE PHOSPHATASE 79 U/L (38-126); ANION GAP 10 (5-19); ASPARTATE AMINO TRANSFERASE 28 U/L (17-59); BILIRUBIN,TOTAL 0.3 mg/dL (0.2-1.3); BLOOD UREA NITROGEN 77 mg/dL (7-20); CALCIUM 8.3 mg/dL (8.4-10.2); CARBON DIOXIDE 21 mmol/L (22-30); CHLORIDE 114 mmol/L (98-107); GLUCOSE 150 mg/dL (75-110); POTASSIUM 4.7 mmol/L (3.6-5.0); TOTAL PROTEIN 6.7 g/dL (6.3-8.2)
--- NOTE | 2020-04-21 16:25 | RADIOLOGY REPORT (SQ) ---
EXAM DESCRIPTION: CHEST SINGLE VIEW IMAGES COMPLETED DATE/TIME: 04/21/2020 4:15 pm REASON FOR STUDY: shortness of breath COMPARISON: 12/01/2019 EXAM PARAMETERS: NUMBER OF VIEWS: One view. TECHNIQUE: Single frontal radiographic view of the chest acquired. RADIATION DOSE: NA LIMITATIONS: None. FINDINGS: LUNGS AND PLEURA: Bilateral perihilar interstitial opacities with small bilateral pleural effusions. Dense left basilar consolidation with obscuration of the hemidiaphragm. No pneumothorax. MEDIASTINUM AND HILAR STRUCTURES: No masses. Contour normal. HEART AND VASCULAR STRUCTURES: Enlarged cardiac silhouette with central vascular congestion. BONES: No acute findings. HARDWARE: None in the chest. OTHER: No other significant finding. IMPRESSION: Findings suggestive of CHF with interstitial edema and small bilateral effusions. Left lower lobe consolidation possibly atelectasis, asymmetric edema or superimposed airspace disease. TECHNICAL DOCUMENTATION: JOB ID: [id number] 2010 [employer]- All Rights Reserved Reading location - IP/workstation name: [email or web address]
[2020-04-21 16:49] LABS: AMORPHOUS SEDIMENT,URINE TRACE /HPF; APPEARANCE,URINE CLOUDY; BILIRUBIN,URINE NEGATIVE (NEGATIVE); COLOR,URINE YELLOW; GLUCOSE, URINE NEGATIVE (NEGATIVE); KETONES,URINE NEGATIVE (NEGATIVE); LEUKOCYTE ESTERASE,URINE NEGATIVE (NEGATIVE); NITRITE,URINE NEGATIVE (NEGATIVE); PROTEIN,URINE >=500 mg/dL (NEGATIVE); URINE SPECIFIC GRAVITY 1.017; UROBILINOGEN,URINE NEGATIVE mg/dL (<2.0)
[2020-04-21 16:52] LABS: ARTERIAL BLOOD BASE EXCESS -5.8 mmol/L; ARTERIAL BLOOD H2CO3 1.23 mmol/L (1.05-1.35); ARTERIAL BLOOD O2 SATURATION 98.9 % (94-98); ARTERIAL BLOOD PCO2 40.8 mmHg (35-45); ARTERIAL BLOOD PH 7.31 (7.35-7.45); ARTERIAL BLOOD PO2 163.6 mmHg (80-100); ARTERIAL BLOOD TOTAL CO2 21.3 mmol/L (23-27)
[2020-04-21 16:56] LABS: ARTERIAL BLOOD FIO2 40%
--- NOTE | 2020-04-21 17:06 | ER Document Report ---
ED General - General Chief Complaint: Shortness Of Breath Stated Complaint: SHORTNESS OF BREATH Time Seen by Provider: 04/21/20 16:17 Primary Care Provider: CONCHITA MARIN MD [Primary Care Provider] - Follow up as needed TRAVEL OUTSIDE OF THE [place] IN LAST 30 DAYS: No - HPI Notes: Chief complaint: Respiratory distress HPI: 74-year-old male with history of dementia from [facility] with history of chronic atrial fibrillation on anticoagulation, congestive heart failure and stage IV kidney disease transported here via EMS on IV nitroglycerin and BiPAP after call for hypertensive emergency and respiratory distress accompanied by progressive worsening of peripheral edema over several days duration. No fever. No sputum production. Patient has not complained of any chest pain. - Related Data Allergies/Adverse Reactions: No Known Allergies Allergy (Verified 11/06/18 11:38) Home Medications: Eliquis. Aricept. AMlodipine. Amoxicillin/Clavulanate. Hydralazine Past Medical History - Social History Smoking Status: Unknown if Ever Smoked Chew tobacco use (# tins/day): No Frequency of alcohol use: None Drug Abuse: None Family History: Other - Unable to at obtain due to patient's current mental status Patient has homicidal ideation: No - Past Medical History Cardiac Medical History: Reports: Hx Atrial Fibrillation, Hx Hypertension Endocrine Medical History: Reports: Hx Diabetes Mellitus Type 2, Hx Hypothyroidism Renal/ Medical History: Denies: Hx Peritoneal Dialysis Psychiatric Medical History: Reports: Hx Dementia Denies: Hx Depression Past Surgical History: Reports: Hx Thyroid Surgery - goiter removed Physical Exam - Vital signs Vitals: Temp Resp Pulse Ox 98.1 F 30 H 100 04/21/20 15:20 04/21/20 15:20 04/21/20 15:20 Course - Re-evaluation Re-evalutation: 04/21/20 22:30 Patient came in on IV nitroglycerin. We weaned him from this and switched him to transdermal nitro. He also was on BiPAP at time of arrival. He was given some IV Lasix. He was switched over to nasal O2. His troponin is minimally elevated below threshold for non-STEMI. This is felt to be due to stage IV renal disease. His creatinine is about 6.1. His potassium and bicarb are normal. Case was discussed with Dr. Del Valle from nephrology. She will see the patient tomorrow for consultation. I will present to Dr. Bosch for admission to hospitalist service. - Vital Signs Vital signs: Temp Pulse Resp BP Pulse Ox 98.1 F 20 125/70 100 04/21/20 15:20 04/21/20 18:11 04/21/20 18:11 04/21/20 18:10 - Laboratory Result Diagrams: 04/21/20 15:21 04/21/20 15:21 Laboratory results interpreted by me: 04/21/20 04/21/20 04/21/20 15:21 15:21 15:21 RBC 2.81 L Hgb 8.2 L Hct 25.5 L RDW 18.0 H Lymph % (Auto) 7.5 L Seg Neutrophils % 81.0 H ABG pH ABG pO2 ABG Total CO2 ABG O2 Saturation Chloride 114 H Carbon Dioxide 21 L BUN 77 H Creatinine 6.89 H Est GFR ( Amer) 9 L Est GFR (MDRD) Non-Af 8 L Glucose 150 H Calcium 8.3 L Creatine Kinase NT-Pro-B Natriuret Pep 31127 H Albumin 3.4 L Urine Protein Urine Ascorbic Acid 04/21/20 04/21/20 04/21/20 15:21 16:21 16:21 RBC Hgb Hct RDW Lymph % (Auto) Seg Neutrophils % ABG pH 7.31 L ABG pO2 163.6 H ABG Total CO2 21.3 L ABG O2 Saturation 98.9 H Chloride Carbon Dioxide BUN Creatinine Est GFR ( Amer) Est GFR (MDRD) Non-Af Glucose Calcium Creatine Kinase 219 H NT-Pro-B Natriuret Pep Albumin Urine Protein >=500 H Urine Ascorbic Acid 40 H Critical Care Note - Critical Care Note Total time excluding time spent on procedures (mins): 35 - BiPAP. IV nitroglycerin. Discharge - Discharge Clinical Impression: Acute pulmonary edema, Stage IV kidney disease Respiratory failure Qualifiers: Chronicity: acute Respiratory failure complication: unspecified whether with hypoxia or hypercapnia Qualified Code(s): J96.00 - Acute respiratory failure, unspecified whether with hypoxia or hypercapnia Condition: Serious Disposition: ADMITTED INPATIENT Admitting Provider: Hiro (Hospitalist) Unit Admitted: Telemetry Referrals: CONCHITA MARIN MD [Primary Care Provider] - Follow up as needed
[2020-04-21] MEDS ORDERED: NITROGLYCERIN 2% OINTMENT 1 GM PACKET TP ONE (17:08)
[2020-04-21 17:44] LABS: TROPONIN I 0.095 ng/mL
--- NOTE | 2020-04-21 20:08 | EKG REPORT ---
SEVERITY:- DEFECTIVE ECG - REGULAR RHYTHM WITH A PVC. LOW VOLTAGE THROUGHOUT PROBABLE POSTERIOR INFARCT BORDERLINE T ABNORMALITIES, INFERIOR LEADS : Confirmed by: Kvng Zelaya MD 21-Apr-2020 20:07:37
[2020-04-21] MEDS ORDERED: FUROSEMIDE INJ/PF 20 MG/2 ML SDV IV ONE (22:17)
[2020-04-21] MEDS ORDERED: IPRATROPIUM/ALBUTEROL 0.5-2.5 MG/3 ML AMPUL NEB PRN (22:50)
[2020-04-21] MEDS ORDERED: MAG HYDROX/AL HYDROX/SIMETH SUSP 30 ML UDCUP PO PRN (22:50)
[2020-04-21] MEDS ORDERED: ACETAMINOPHEN 325 MG TABLET PO PRN (22:50)
[2020-04-21] MEDS ORDERED: MAGNESIUM HYDROXIDE SUSP 30 ML UDCUP PO PRN (22:50)
[2020-04-21] MEDS ORDERED: LACTULOSE SYRUP 20 GM/30 ML UDCUP PO ONE (22:53)
[2020-04-22] MEDS ORDERED: LACTULOSE SYRUP 20 GM/30 ML UDCUP PO ONE (00:30)
[2020-04-22] MEDS ORDERED: IPRATROPIUM/ALBUTEROL 0.5-2.5 MG/3 ML AMPUL NEB ONE (00:45)
[2020-04-22] MEDS: IPRATROPIUM/ALBUTEROL 0.5-2.5 MG/3 ML AMPUL NEB SCH ×2 (00:47→08:05)
--- NOTE | 2020-04-22 04:03 | PDOC H&P ---
History of Present Illness Admission Date/PCP: 04/21/20 22:50 CONCHITA MARIN MD Patient complains of: Shortness of breath History of Present Illness: RICHARD YATES JR is a 75 year old male with a past medical history of advanced dementia, atrial fibrillation and nonoliguric end-stage renal failure he [facility] nonverbal with shortness of breath and noted to have uncontrolled hypertension, A. fib with RVR, pulmonary vascular co ngestion and lower extremity edema. He received IV Lasix, 2 inches of Nitropaste to the anterior chest wall, placed on BiPAP and referred to the hospitalist for admission. Patient is nonverbal and unable to provide any medical history. He appears profoundly demented, chronically ill and unlikely to benefit from aggressive measures. Past Medical History Cardiac Medical History: Reports: Atrial Fibrillation, Hypertension Endocrine Medical History: Reports: Diabetes Mellitus Type 2, Hypothyroidism Renal/ Medical History: Reports: End Stage Renal Disease Psychiatric Medical History: Reports: Dementia Denies: Depression Social History Information Source: Emergency Med Personnel, [facility] Records, Outside Facility Records Lives with: Assisted Smoking Status: Unknown if Ever Smoked Electronic Cigarette use?: No Frequency of Alcohol Use: None Hx Recreational Drug Use: No Drugs: None Hx Prescription Drug Abuse: No - Patient unable to provide information - Advance Directive Resuscitation Status: Full Code Family History Family History: Other - Unable to at obtain due to patient's current mental status Parental Family History Reviewed: No - Unobtainable Children Family History Reviewed: No - Unobtainable Sibling(s) Family History Reviewed.: No - Unobtainable Medication/Allergy Home Medications: Apixaban [Eliquis 2.5 mg Tablet] 2.5 mg PO Q12 11/28/19 Donepezil HCl [Aricept] 10 mg PO QHS 11/28/19 Amlodipine Besylate [Norvasc 10 mg Tablet] 10 mg PO DAILY tablet 12/03/19 Amox Tr/Potassium Clavulanate [Augmentin 875-125 mg Tablet] 1 tab PO BID 7 Days #14 tablet 12/03/19 Famotidine [Pepcid AC] 20 mg PO BID 30 Days #60 tablet 12/03/19 Hydralazine HCl [Apresoline 10 mg Tablet] 10 mg PO Q8 tablet 12/03/19 Levothyroxine Sodium [Synthroid 0.1 mg Tablet] 0.2 mg PO Q6AM tablet 12/03/19 Allergies/Adverse Reactions: No Known Allergies Allergy (Verified 11/06/18 11:38) Review of Systems ROS unobtainable: Due to mental status Physical Exam Vital Signs: Temp Pulse Resp BP Pulse Ox 98.3 F 66 28 H 166/93 H 100 04/22/20 02:55 04/22/20 02:55 04/22/20 02:55 04/22/20 02:55 04/22/20 02:55 Intake & Output 04/20/20 04/21/20 04/22/20 11:59 11:59 11:59 Output Total 350 Balance -350 Weight 109.4 kg General appearance: PRESENT: severe distress, other - Unresponsive to verbal stimuli, chronically ill-appearing with cachexia and global muscular atrophy.. ABSENT: no acute distress, cooperative, disheveled, hard of hearing Head exam: PRESENT: atraumatic, normocephalic Eye exam: PRESENT: conjunctiva pink, EOMI, PERRLA. ABSENT: scleral icterus Ear exam: PRESENT: normal external ear exam Mouth exam: PRESENT: dry mucosa, tongue midline. ABSENT: moist Neck exam: PRESENT: JVD. ABSENT: carotid bruit, lymphadenopathy, thyromegaly Respiratory exam: PRESENT: crackles, decreased breath sounds, retraction, symmetrical, tachypnea Cardiovascular exam: PRESENT: gallop, +S1, +S2, systolic murmur, tachycardia Vascular exam: PRESENT: normal capillary refill GI/Abdominal exam: PRESENT: normal bowel sounds, soft. ABSENT: distended, guarding, mass, organolmegaly, rebound, tenderness Rectal exam: PRESENT: deferred Extremities exam: PRESENT: full ROM, +2 edema. ABSENT: tenderness Neurological exam: PRESENT: altered, CN II-XII grossly intact. ABSENT: alert, awake, oriented to person, oriented to place Psychiatric exam: PRESENT: appropriate affect, normal mood. ABSENT: homicidal ideation, suicidal ideation Skin exam: PRESENT: dry, intact, warm. ABSENT: cyanosis, rash Results Laboratory Results: 04/21/20 15:21 04/21/20 15:21 04/21/20 04/21/20 04/21/20 15:21 15:21 16:21 WBC 9.1 RBC 2.81 L Hgb 8.2 L Hct 25.5 L MCV 91 MCH 29.1 MCHC 32.1 RDW 18.0 H Plt Count 359 Seg Neutrophils % 81.0 H Carbonic Acid HCO3/H2CO3 Ratio ABG pH ABG pCO2 ABG pO2 ABG HCO3 ABG O2 Saturation ABG Base Excess FiO2 Sodium 145.0 Potassium 4.7 Chloride 114 H Carbon Dioxide 21 L Anion Gap 10 BUN 77 H Creatinine 6.89 H Est GFR ( Amer) 9 L Glucose 150 H Calcium 8.3 L Total Bilirubin 0.3 AST 28 Alkaline Phosphatase 79 Total Protein 6.7 Albumin 3.4 L Urine Color YELLOW Urine Appearance CLOUDY Urine pH 5.0 Ur Specific [place] 1.017 Urine Protein >=500 H Urine Glucose (UA) NEGATIVE Urine Ketones NEGATIVE Urine Blood NEGATIVE Urine Nitrite NEGATIVE Ur Leukocyte Esterase NEGATIVE Urine WBC (Auto) 4 Urine RBC (Auto) 1 04/21/20 16:21 WBC RBC Hgb Hct MCV MCH MCHC RDW Plt Count Seg Neutrophils % Carbonic Acid 1.23 HCO3/H2CO3 Ratio 16:1 ABG pH 7.31 L ABG pCO2 40.8 ABG pO2 163.6 H ABG HCO3 20.0 ABG O2 Saturation 98.9 H ABG Base Excess -5.8 FiO2 40% Sodium Potassium Chloride Carbon Dioxide Anion Gap BUN Creatinine Est GFR ( Amer) Glucose Calcium Total Bilirubin AST Alkaline Phosphatase Total Protein Albumin Urine Color Urine Appearance Urine pH Ur Specific [place] Urine Protein Urine Glucose (UA) Urine Ketones Urine Blood Urine Nitrite Ur Leukocyte Esterase Urine WBC (Auto) Urine RBC (Auto) 04/21/20 04/21/20 15:21 15:21 Creatine Kinase 219 H Troponin I 0.095 NT-Pro-B Natriuret Pep 81757 H Impressions: Chest X-Ray 04/21/20 15:40 IMPRESSION: Findings suggestive of CHF with interstitial edema and small bilateral effusions. Left lower lobe consolidation possibly atelectasis, asymmetric edema or superimposed airspace disease. Assessment and Plan - Diagnosis (1) Acute pulmonary edema Is this a current diagnosis for this admission?: Yes Plan: Complicated by advanced dementia and end-stage renal failure with overload. BiPAP, nitrates and Lasix initiated. Follow-up cardiac enzymes (2) End stage renal failure on dialysis Is this a current diagnosis for this admission?: Yes Plan: Nonoliguric, not a candidate for renal replacement therapy, avoid nephrotoxic meds and doses. (3) Dementia Is this a current diagnosis for this admission?: Yes Plan: Supportive measures. Advanced dementia and deconditioned state briana for a grave prognosis. (4) Respiratory failure Qualifiers: Chronicity: acute Respiratory failure complication: unspecified whether with hypoxia or hypercapnia Qualified Code(s): J96.00 - Acute respiratory failure, unspecified whether with hypoxia or hypercapnia Is this a current diagnosis for this admission?: Yes Plan: Secondary to #1, supplemental oxygen and BiPAP. - Time Time Spent with patient: 25-34 minutes - Inpatient Certification Medical Necessity: Need Close Monitoring Due to Risk of Patient Decompensation
[2020-04-22] MEDS ORDERED: HEPARIN SOD (PORCINE) 5,000 UNIT/ML 1 ML VIAL SUBCUT SCH (06:00)
[2020-04-22 06:14] LABS: ABSOLUTE BASOPHILS # (AUTO) 0.1 10^3/uL (0.0-0.2); ABSOLUTE EOSINOPHILS # (AUTO) 0.2 10^3/uL (0.0-0.6); ABSOLUTE LYMPHOCYTES (AUTO) 0.6 10^3/uL (0.5-4.7); ABSOLUTE MONOCYTES (AUTO) 0.7 10^3/uL (0.1-1.4); ABSOLUTE NEUT (AUTO) 7.5 10^3/uL (1.7-8.2); BASOPHILS % (AUTO) 0.6 % (0-2); EOSINOPHILS % (AUTO) 2.6 % (0-6); HEMATOCRIT 25.7 % (37.9-51.0); HEMOGLOBIN 8.3 g/dL (13.5-17.0); LYMPHOCYTES % (AUTO) 6.5 % (13-45); MEAN CORPUSCULAR HGB CONC 32.2 g/dL (32.0-36.0); MEAN CORPUSCULAR VOLUME 90 fl (80-97); MONOCYTES % (AUTO) 7.7 % (3-13); PLATELET COUNT 306 10^3/uL (150-450); RED BLOOD COUNT 2.86 10^6/uL (4.35-5.55); RED CELL DISTRIBUTION WIDTH 17.7 % (11.5-14.0); SEGMENTED NEUTROPHILS % (AUTO) 82.6 % (42-78); TOTAL CELLS COUNTED % (AUTO) 100 %; WHITE BLOOD COUNT 9.1 10^3/uL (4.0-10.5)
[2020-04-22 07:01] LABS: ANION GAP 10 (5-19); BLOOD UREA NITROGEN 80 mg/dL (7-20); CALCIUM 8.4 mg/dL (8.4-10.2); CARBON DIOXIDE 20 mmol/L (22-30); CHLORIDE 117 mmol/L (98-107); GLUCOSE 114 mg/dL (75-110); POTASSIUM 4.4 mmol/L (3.6-5.0)
[2020-04-22] MEDS ORDERED: HYDRALAZINE HCL INJ/PF 20 MG/1 ML SDV IV PRN ×2 (08:49→12:11)
[2020-04-22] MEDS ORDERED: FUROSEMIDE INJ/PF 20 MG/2 ML SDV IV SCH ×2 (10:00→22:00)
[2020-04-22] MEDS ORDERED: FAMOTIDINE 20 MG TABLET PO SCH ×2 (12:00→18:00)
--- NOTE | 2020-04-22 12:02 | PDOC CONSULTATION ---
Consultation Consult Date: 04/22/20 Provider Consulted: EDMAR LAUREANO Consult reason:: ESRD History of Present Illness Admission Date/PCP: 04/21/20 22:50 CONCHITA MARIN MD History of Present Illness: RICHARD YATES JR is a 75 year old -[place] gentleman with history of advanced dementia, atrial fibrillation, hypothyroidism, hypertension, diabetes mellitus type 2 and chronic kidney disease stage V admitted last night due to shortness of breath, hypertension, atrial fibrillation with rapid ventricular response, pulmonary vascular congestion and lower extremity edema. Patient is really unable to give any kind of history due to his advanced dementia. When I ask him questions he really could not give any reasonable answers. He tells me he is short of breath. He was able to tell me his name but nothing else. In the emergency room the patient was given IV Lasix, Nitropaste and was placed on BiPAP which he is is still currently on. Initial labs showed a BUN of 77, creatinine of 6.89 with EGFR 59. Today he has a BUN of 80, creatinine of 6.81 with EGFR of 10. For the last 3 months the patient's kidney function has progressively deteriorated with creatinine ranging anywhere between 6.3-6.6 and EGFR going from 12-10. I have seen this patient during his hospitalization in November 2019 and at that time I recommended just supportive measures as the patient is not a candidate for any dialysis treatment. Currently he is a still making some urine with the IV Lasix that he get started on. For the past 24 hours he was able to produce 725 mL of urine output. Past Medical History Cardiac Medical History: Reports: Atrial Fibrillation, Hypertension-primary Endocrine Medical History: Reports: Diabetes Mellitus Type 2, Hypothyroidism Renal/ Medical History: Reports: Chronic Kidney Disease Stage V Psychiatric Medical History: Reports: Dementia Hematology Medical History: Reports Anemia of Chronic Kidney Disease Past Surgical History Past Surgical History: Reports: None Social History Information Source: [facility] Records Lives with: Intermediate Smoking Status: Unknown if Ever Smoked Electronic Cigarette use?: No Frequency of Alcohol Use: None Hx Recreational Drug Use: No Drugs: None Hx Prescription Drug Abuse: No - Patient unable to provide information - Advance Directive Resuscitation Status: Full Code Family History Family History: Unable to obtain from patient due to his advanced dementia. Parental Family History Reviewed: No Children Family History Reviewed: No Sibling(s) Family History Reviewed.: No Medication/Allergy Home Medications: Apixaban [Eliquis 2.5 mg Tablet] 2.5 mg PO Q12 11/28/19 Donepezil HCl [Aricept] 10 mg PO QHS 11/28/19 Amlodipine Besylate [Norvasc 10 mg Tablet] 10 mg PO DAILY tablet 12/03/19 Famotidine [Pepcid AC] 20 mg PO BID 30 Days #60 tablet 12/03/19 Hydralazine HCl [Apresoline 10 mg Tablet] 10 mg PO Q8 tablet 12/03/19 Ipratropium/Albuterol Sulfate [Duoneb 3 ml Ampul] 3 ml NEB RTQ6 04/22/20 Levothyroxine Sodium [Levoxyl] 188 mcg PO Q6AM 04/22/20 Multivit-Min/Iron/Folic Acid/K [Multi-Day Plus Minerals Tablet] 1 tab PO DAILY 04/22/20 Sodium Polystyrene Sulfonate 15 gm PO DAILY 04/22/20 Allergies/Adverse Reactions: No Known Allergies Allergy (Verified 11/06/18 11:38) Review of Systems ROS unobtainable: Due to mental status Physical Exam Vital Signs: Temp Pulse Resp BP Pulse Ox 98.5 F 71 22 H 167/76 H 93 04/22/20 07:08 04/22/20 10:19 04/22/20 08:06 04/22/20 10:19 04/22/20 08:06 Intake & Output 04/21/20 04/22/20 04/23/20 06:59 06:59 06:59 Output Total 725 Balance -725 Weight 103.5 kg Exam: General appearance: Patient currently on BiPAP and seems to be comfortable Head exam: PRESENT: atraumatic, normocephalic Eye exam: PRESENT: Conjunctiva [place], EOMI, PERRLA. ABSENT: conjunctival injection, scleral icterus Mouth exam: PRESENT: moist, neck supple, tongue midline Neck exam: PRESENT: full ROM. ABSENT: carotid bruit, JVD, lymphadenopathy, thyromegaly Respiratory exam: PRESENT: clear to auscultation bilaterally. ABSENT: rales, rhonchi, stridor, wheezes Cardiovascular exam: PRESENT: RRR, +S1, +S2. ABSENT: systolic murmur Pulses: PRESENT: normal radial pulses, normal dorsalis pedis pulses GI/Abdominal exam: PRESENT: normal bowel sounds, soft. ABSENT: guarding, mass, tenderness Rectal exam: Deferred Extremities exam: PRESENT: full ROM. Bilateral feet swelling ABSENT: calf tenderness Musculoskeletal: PRESENT: full ROM. ABSENT: deformity Neurological exam: PRESENT: alert, Awake, Oriented to person only , CN II-XII grossly intact. ABSENT: motor sensory deficit Psychiatric exam: PRESENT: appropriate affect, normal mood. Skin exam: PRESENT: intact, dry, warm. ABSENT: rash Results Laboratory Results: 04/22/20 05:44 04/22/20 05:44 04/21/20 04/21/20 04/21/20 15:21 15:21 16:21 WBC 9.1 RBC 2.81 L Hgb 8.2 L Hct 25.5 L MCV 91 MCH 29.1 MCHC 32.1 RDW 18.0 H Plt Count 359 Seg Neutrophils % 81.0 H Carbonic Acid HCO3/H2CO3 Ratio ABG pH ABG pCO2 ABG pO2 ABG HCO3 ABG O2 Saturation ABG Base Excess FiO2 Sodium 145.0 Potassium 4.7 Chloride 114 H Carbon Dioxide 21 L Anion Gap 10 BUN 77 H Creatinine 6.89 H Est GFR ( Amer) 9 L Glucose 150 H Calcium 8.3 L Total Bilirubin 0.3 AST 28 Alkaline Phosphatase 79 Total Protein 6.7 Albumin 3.4 L Urine Color YELLOW Urine Appearance CLOUDY Urine pH 5.0 Ur Specific [place] 1.017 Urine Protein >=500 H Urine Glucose (UA) NEGATIVE Urine Ketones NEGATIVE Urine Blood NEGATIVE Urine Nitrite NEGATIVE Ur Leukocyte Esterase NEGATIVE Urine WBC (Auto) 4 Urine RBC (Auto) 1 04/21/20 04/22/20 04/22/20 16:21 05:44 05:44 WBC 9.1 RBC 2.86 L Hgb 8.3 L Hct 25.7 L MCV 90 MCH 29.0 MCHC 32.2 RDW 17.7 H Plt Count 306 Seg Neutrophils % 82.6 H Carbonic Acid 1.23 HCO3/H2CO3 Ratio 16:1 ABG pH 7.31 L ABG pCO2 40.8 ABG pO2 163.6 H ABG HCO3 20.0 ABG O2 Saturation 98.9 H ABG Base Excess -5.8 FiO2 40% Sodium 146.7 H Potassium 4.4 Chloride 117 H Carbon Dioxide 20 L Anion Gap 10 BUN 80 H Creatinine 6.81 H Est GFR ( Amer) 10 L Glucose 114 H Calcium 8.4 Total Bilirubin AST Alkaline Phosphatase Total Protein Albumin Urine Color Urine Appearance Urine pH Ur Specific [place] Urine Protein Urine Glucose (UA) Urine Ketones Urine Blood Urine Nitrite Ur Leukocyte Esterase Urine WBC (Auto) Urine RBC (Auto) 04/21/20 04/21/20 15:21 15:21 Creatine Kinase 219 H Troponin I 0.095 NT-Pro-B Natriuret Pep 32838 H Impressions: Chest X-Ray 04/21/20 15:40 IMPRESSION: Findings suggestive of CHF with interstitial edema and small bilateral effusions. Left lower lobe consolidation possibly atelectasis, asymmetric edema or superimposed airspace disease. Assessment & Plan - Diagnosis (1) End stage renal failure on dialysis Is this a current diagnosis for this admission?: Yes Plan: The patient has now reached end-stage renal disease complicated by pulmonary vascular congestion, anemia of chronic kidney disease, proteinuria and metabolic acidosis. Due to the patient's advanced dementia and comorbid conditions the patient is not a candidate for dialysis treatment. Due to his dementia he would not be able to understand to stay and sustain hemodialysis treatments for several hours 3 times a week. I then went ahead and call patient daughter Ms. Jennifer Yates at [phone] and discuss my recommendations. I also discussed with her the patient's CODE STATUS since he is currently full code. The patient understands the patient situation and him not being a candidate for dialysis treatment. I discussed with her to a CODE STATUS between DO NOT RESUSC ITATE and comfort care measures only. Patient's daughter agreed that she just wants the patient to be comfortable. I also recommended the patient be evaluated for hospice care. Ms. Rodriguez also agreed for hospice evaluation and putting the patient on comfort care measures without any further treatment at this point. I then asked her to speak to the patient's nurse, Xavier to reiterate and confirm what she just told me regarding comfort care measures and her wishes for hospice care evaluation. She did confirm it with Xavier. Patient understood all the decisions that she has made and has no further questions. I did speak to Wendi Henderson, KIRSTY-C regarding the above discussions of the patient's daughter. She will facilitate changing the CODE STATUS and hospice care evaluation. (2) Acute pulmonary edema Is this a current diagnosis for this admission?: Yes (3) Anemia in chronic kidney disease (CKD) Is this a current diagnosis for this admission?: Yes (4) Metabolic acidosis Is this a current diagnosis for this admission?: Yes (5) Dementia Is this a current diagnosis for this admission?: Yes (6) Atrial fibrillation Qualifiers: Atrial fibrillation type: unspecified Qualified Code(s): I48.91 - Unspecified atrial fibrillation Is this a current diagnosis for this admission?: Yes (7) Hypertension Qualifiers: Hypertension type: essential hypertension Qualified Code(s): I10 - Essential (primary) hypertension Is this a current diagnosis for this admission?: Yes - Notes Notes: Thank you very much for this consultation. Discussed with the patient's daughter, Ms. Jennifer Yates as above. Also discussed the case with NICANOR Allen from the hospitalist service. - Time Time Spent: 50 to 70 Minutes
[2020-04-22] MEDS ORDERED: IPRATROPIUM/ALBUTEROL 0.5-2.5 MG/3 ML AMPUL NEB PRN (12:03)
[2020-04-22] MEDS ORDERED: LORAZEPAM INJ 2 MG/1 ML VIAL IV PRN (12:07)
[2020-04-22] MEDS ORDERED: MORPHINE SULFATE 10 MG/ML INJ IV PRN (12:07)
--- NOTE | 2020-04-22 12:24 | PDOC PROGRESS REPORT ---
Subjective Progress Note for:: 04/22/20 Subjective:: RICHARD GUZMAN JR is a 75 year old male with a past medical history of advanced dementia, atrial fibrillation and nonoliguric end-stage renal failure he presents from retirement facility who was admitted for acute respiratory failure with hypoxia secondary to pulmonary edema/fluid volume overload. Patient was seen on morning rounds. He is found resting in bed, comfortably, on BiPAP. He was sleeping but woke easily when I said his name. He did make eye contact and nodded his head yes. However, he did not respond to any further questions or directions. Per nursing, the patient has been responsive to verbal stimulus but remains nonverbal and confused. Likely at baseline per documentation received from SNF. He did appear to be comfortable and was not noted to be in any acute distress. I did make a phone call to the patient's daughter, Jennifer Guzman ([phone]), that was not answered. Fortunately, Dr. Del Valle was able to reach the daughter at a different number shortly later this morning. Per their discussion, the patient is transition to DNR/comfort care measures with request to transition to hospice services. Reason For Visit: VOLUME OVERLOAD ESRD Physical Exam Vital Signs: Temp Pulse Resp BP Pulse Ox 98.5 F 71 25 H 113/95 H 100 04/22/20 11:40 04/22/20 11:40 04/22/20 11:40 04/22/20 11:40 04/22/20 11:40 Intake & Output 04/21/20 04/22/20 04/23/20 06:59 06:59 06:59 Intake Total 0 Output Total 725 400 Balance -725 -400 Weight 103.5 kg General appearance: PRESENT: no acute distress, well-developed, other - chronically ill-appearing with cachexia and global muscular atrophy Head exam: PRESENT: atraumatic, normocephalic Eye exam: PRESENT: conjunctiva pink, EOMI, PERRLA. ABSENT: scleral icterus Mouth exam: PRESENT: moist, tongue midline Respiratory exam: PRESENT: crackles, prolonged expiratory phas, symmetrical, unlabored, other - BiPAP. ABSENT: rales, rhonchi, wheezes Cardiovascular exam: PRESENT: RRR, systolic murmur, tachycardia. ABSENT: diastolic murmur, rubs Extremities exam: PRESENT: full ROM, +1 edema - BLE. ABSENT: calf tenderness, clubbing Neurological exam: PRESENT: alert, awake, aphasic, other - Responds to verbal stimuli (opens eyes), no further meaningful interactions. ABSENT: motor sensory deficit Skin exam: PRESENT: dry, intact, warm. ABSENT: cyanosis, rash Results Laboratory Results: 04/22/20 05:44 04/22/20 05:44 04/21/20 04/21/20 04/21/20 15:21 15:21 16:21 WBC 9.1 RBC 2.81 L Hgb 8.2 L Hct 25.5 L MCV 91 MCH 29.1 MCHC 32.1 RDW 18.0 H Plt Count 359 Seg Neutrophils % 81.0 H Carbonic Acid HCO3/H2CO3 Ratio ABG pH ABG pCO2 ABG pO2 ABG HCO3 ABG O2 Saturation ABG Base Excess FiO2 Sodium 145.0 Potassium 4.7 Chloride 114 H Carbon Dioxide 21 L Anion Gap 10 BUN 77 H Creatinine 6.89 H Est GFR ( Amer) 9 L Glucose 150 H Calcium 8.3 L Total Bilirubin 0.3 AST 28 Alkaline Phosphatase 79 Total Protein 6.7 Albumin 3.4 L Urine Color YELLOW Urine Appearance CLOUDY Urine pH 5.0 Ur Specific [place] 1.017 Urine Protein >=500 H Urine Glucose (UA) NEGATIVE Urine Ketones NEGATIVE Urine Blood NEGATIVE Urine Nitrite NEGATIVE Ur Leukocyte Esterase NEGATIVE Urine WBC (Auto) 4 Urine RBC (Auto) 1 04/21/20 04/22/20 04/22/20 16:21 05:44 05:44 WBC 9.1 RBC 2.86 L Hgb 8.3 L Hct 25.7 L MCV 90 MCH 29.0 MCHC 32.2 RDW 17.7 H Plt Count 306 Seg Neutrophils % 82.6 H Carbonic Acid 1.23 HCO3/H2CO3 Ratio 16:1 ABG pH 7.31 L ABG pCO2 40.8 ABG pO2 163.6 H ABG HCO3 20.0 ABG O2 Saturation 98.9 H ABG Base Excess -5.8 FiO2 40% Sodium 146.7 H Potassium 4.4 Chloride 117 H Carbon Dioxide 20 L Anion Gap 10 BUN 80 H Creatinine 6.81 H Est GFR ( Amer) 10 L Glucose 114 H Calcium 8.4 Total Bilirubin AST Alkaline Phosphatase Total Protein Albumin Urine Color Urine Appearance Urine pH Ur Specific [place] Urine Protein Urine Glucose (UA) Urine Ketones Urine Blood Urine Nitrite Ur Leukocyte Esterase Urine WBC (Auto) Urine RBC (Auto) 04/21/20 04/21/20 15:21 15:21 Creatine Kinase 219 H Troponin I 0.095 NT-Pro-B Natriuret Pep 63801 H Impressions: Chest X-Ray 04/21/20 15:40 IMPRESSION: Findings suggestive of CHF with interstitial edema and small bilateral effusions. Left lower lobe consolidation possibly atelectasis, asymmetric edema or superimposed airspace disease. Assessment and Plan - Diagnosis (1) Acute pulmonary edema Is this a current diagnosis for this admission?: Yes Plan: Improved; decreased work of breathing today, increased alertness. Remains on supplemental O2/BiPAP Complicated by advanced dementia and end-stage renal failure with overload. Daughter has requested transition to Comfort Care Measures. Continue supplemental oxygen and BiPAP for comfort pending disposition (return to [facility] with [facility] or transfer to Inpatient hospice). As needed nebulizer treatments. PRN Morphine for air hunger. (2) Acute kidney injury superimposed on chronic kidney disease Is this a current diagnosis for this admission?: Yes Plan: Cr 6.81/BUN 80; appreciably worsened since last admission in November. Dr. Del Valle has been consulted; patient is not a candidate for renal replacement therapy. Per Dr. Del Valle's conversation with daughter, will begin transition to hospice. Continue to avoid nephrotoxic medications as able. No further labs. (3) Hypothyroidism Qualifiers: Hypothyroidism type: unspecified Qualified Code(s): E03.9 - Hypothyroidism, unspecified Is this a current diagnosis for this admission?: Yes Plan: Will continue home dose levothyroxine while patient is tolerating p.o intake. (4) Dementia Is this a current diagnosis for this admission?: Yes Plan: Supportive measures. Advanced dementia and deconditioned state briana for a grave prognosis. (5) Acute respiratory failure with hypoxia Is this a current diagnosis for this admission?: Yes Plan: As in #1. - Time Time Spent with patient: 35 or more minutes Medications reviewed and adjusted accordingly: Yes Anticipated discharge: SNF - vs Inpatient Hospice Within: when bed available - pending Discharge Planning
[2020-04-22] MEDS ORDERED: HYDRALAZINE HCL 10 MG TABLET PO SCH (14:00)
[2020-04-23] MEDS ORDERED: LEVOTHYROXINE SODIUM 0.088 MG TABLET PO SCH ×2 (06:00)
[2020-04-23] MEDS ORDERED: LEVOTHYROXINE SODIUM 0.1 MG TABLET PO SCH (06:00)
[2020-04-23 07:43] VITALS: BP 166/74
[2020-04-23] MEDS ORDERED: AMLODIPINE BESYLATE 10 MG TABLET PO SCH (10:00)
[2020-04-23] MEDS ORDERED: SODIUM POLYSTYRENE SULFONATE 15 GM PO SCH (10:00)
[2020-04-23] MEDS ORDERED: SODIUM POLYSTYRENE SULFONATE 15 GM/60 ML PO SCH (10:00)
--- NOTE | 2020-04-23 12:16 | PDOC DISCHARGE SUMMARY ---
Impression - Admit/DC Date/PCP Admission Date/Primary Care Provider: 04/21/20 22:50 CONCHITA MARIN MD Discharge Date: 04/23/20 - Discharge Diagnosis (1) Acute pulmonary edema Is this a current diagnosis for this admission?: Yes (2) Acute kidney injury superimposed on chronic kidney disease Is this a current diagnosis for this admission?: Yes (3) Hypothyroidism Is this a current diagnosis for this admission?: Yes (4) Dementia Is this a current diagnosis for this admission?: Yes (5) Acute respiratory failure with hypoxia Is this a current diagnosis for this admission?: Yes - Additional Information Resuscitation Status: Full Code Discharge Diet: As Tolerated Discharge Activity: Activity As Tolerated Referrals: CONCHITA MARIN MD [Primary Care Provider] - Follow up as needed Home Medications: Acetaminophen [Tylenol 325 mg Tablet] 650 mg PO Q4HP PRN tablet 04/23/20 Ipratropium/Albuterol Sulfate [Duoneb 3 ml Ampul] 3 ml NEB RTQ6HP PRN vial.neb 04/23/20 History of Present Illiness History of Present Illness: Per H&P by Dr. Bosch: RICHARD YATES JR is a 75 year old male with a past medical history of advanced dementia, atrial fibrillation and nonoliguric end- stage renal failure he presents from retirement facility nonverbal with shortness of breath and noted to have uncontrolled hypertension, A. fib with RVR, pulmonary vascular congestion and lower extremity edema. He received IV Lasix, 2 inches of Nitropaste to the anterior chest wall, placed on BiPAP and referred to the hospitalist for admission. Patient is nonverbal and unable to provide any medical history. He appears profoundly demented, chronically ill and unlikely to benefit from aggressive measures. Hospital Course Hospital Course: (1) Acute pulmonary edema Initially improved following diuresis. Fully expect this to rapidly recur The patient has been transitioned to comfort care measures only. Remains on supplemental O2 for work of breathing/air hunger. The patient's mentation is rapidly deteriorating; will defer to his hospice agency whether or not to continue this medication for symptom management of his respiratory distress. Continue supplemental oxygen for comfort pending [place] primary with hospice services. Patient was initially placed on supplemental oxygen, BiPAP, and aggressively diuresed with IV furosemide. These measures have been discontinued following conversation with family. (2) Acute kidney injury superimposed on chronic kidney disease Cr 6.81/BUN 80; appreciably worsened since last admission in November. Dr. Del Valle was consulted; patient is not a candidate for renal replacement therapy. Per Dr. Del Valle's conversation with daughter, will begin transition to hospice. Continue to avoid nephrotoxic medications as able. No further labs. (3) Hypothyroidism (4) Dementia Supportive measures. Advanced dementia and deconditioned state briana for a grave prognosis. (5) Acute respiratory failure with hypoxia As in #1. Physical Exam Vital Signs: Temp Pulse Resp BP Pulse Ox 98.0 F 60 18 166/74 H 97 04/23/20 07:40 04/23/20 07:40 04/23/20 07:40 04/23/20 07:40 04/23/20 07:40 Intake & Output 04/22/20 04/23/20 04/24/20 06:59 06:59 06:59 Intake Total 0 Output Total 725 1200 Balance -725 -1200 Weight 103.5 kg 106.1 kg General appearance: PRESENT: mild distress, well-developed, well-nourished, other - Chronically ill-appearing, cachexia Head exam: PRESENT: atraumatic, normocephalic Mouth exam: PRESENT: dry mucosa, tongue midline Respiratory exam: PRESENT: crackles, prolonged expiratory phas, symmetrical, tachypnea, other - Increased work of breathing. ABSENT: rales, rhonchi, wheezes Cardiovascular exam: PRESENT: RRR, +S1, +S2, systolic murmur. ABSENT: diastolic murmur, rubs Pulses: PRESENT: +1 pedal pulses bilateral Vascular exam: PRESENT: normal capillary refill Neurological exam: PRESENT: other - Obtunded; grimaces to painful stimuli.. ABSENT: motor sensory deficit Skin exam: PRESENT: dry, intact, warm. ABSENT: cyanosis, rash Results Laboratory Results: WBC 9.1 10^3/uL (4.0-10.5) 04/22/20 05:44 RBC 2.86 10^6/uL (4.35-5.55) L 04/22/20 05:44 Hgb 8.3 g/dL (13.5-17.0) L 04/22/20 05:44 Hct 25.7 % (37.9-51.0) L 04/22/20 05:44 MCV 90 fl (80-97) 04/22/20 05:44 MCH 29.0 pg (27.0-33.4) 04/22/20 05:44 MCHC 32.2 g/dL (32.0-36.0) 04/22/20 05:44 RDW 17.7 % (11.5-14.0) H 04/22/20 05:44 Plt Count 306 10^3/uL (150-450) 04/22/20 05:44 Lymph % (Auto) 6.5 % (13-45) L 04/22/20 05:44 [place] % (Auto) 7.7 % (3-13) 04/22/20 05:44 Eos % (Auto) 2.6 % (0-6) 04/22/20 05:44 Baso % (Auto) 0.6 % (0-2) 04/22/20 05:44 Absolute Neuts (auto) 7.5 10^3/uL (1.7-8.2) 04/22/20 05:44 Absolute Lymphs (auto) 0.6 10^3/uL (0.5-4.7) 04/22/20 05:44 Absolute Monos (auto) 0.7 10^3/uL (0.1-1.4) 04/22/20 05:44 Absolute Eos (auto) 0.2 10^3/uL (0.0-0.6) 04/22/20 05:44 Absolute Basos (auto) 0.1 10^3/uL (0.0-0.2) 04/22/20 05:44 Seg Neutrophils % 82.6 % (42-78) H 04/22/20 05:44 Carbonic Acid 1.23 mmol/L (1.05-1.35) 04/21/20 16:21 HCO3/H2CO3 Ratio 16:1 04/21/20 16:21 ABG pH 7.31 (7.35-7.45) L 04/21/20 16:21 ABG pCO2 40.8 mmHg (35-45) 04/21/20 16:21 ABG pO2 163.6 mmHg (80-100) H 04/21/20 16:21 ABG HCO3 20.0 mmol/L (20-24) 04/21/20 16:21 ABG Total CO2 21.3 mmol/L (23-27) L 04/21/20 16:21 ABG O2 Saturation 98.9 % (94-98) H 04/21/20 16:21 ABG Base Excess -5.8 mmol/L 04/21/20 16:21 FiO2 40% 04/21/20 16:21 Sodium 146.7 mmol/L (137-145) H 04/22/20 05:44 Potassium 4.4 mmol/L (3.6-5.0) 04/22/20 05:44 Chloride 117 mmol/L (98-107) H 04/22/20 05:44 Carbon Dioxide 20 mmol/L (22-30) L 04/22/20 05:44 Anion Gap 10 (5-19) 04/22/20 05:44 BUN 80 mg/dL (7-20) H 04/22/20 05:44 Creatinine 6.81 mg/dL (0.52-1.25) H 04/22/20 05:44 Est GFR ( Amer) 10 (>60) L 04/22/20 05:44 Est GFR (MDRD) Non-Af 8 (>60) L 04/22/20 05:44 Glucose 114 mg/dL (75-110) H 04/22/20 05:44 POC Glucose 113 mg/dL (70-110) H 04/22/20 11:40 Calcium 8.4 mg/dL (8.4-10.2) 04/22/20 05:44 Total Bilirubin 0.3 mg/dL (0.2-1.3) 04/21/20 15:21 Direct Bilirubin 0.0 mg/dL (0.0-0.4) 04/21/20 15:21 Neonat Total Bilirubin Not Reportable 04/21/20 15:21 Neonat Direct Bilirubin Not Reportable 04/21/20 15:21 Neonat Indirect Bili Not Reportable 04/21/20 15:21 AST 28 U/L (17-59) 04/21/20 15:21 ALT 22 U/L (<50) 04/21/20 15:21 Alkaline Phosphatase 79 U/L (38-126) 04/21/20 15:21 Creatine Kinase 219 U/L (55-170) H 04/21/20 15:21 Troponin I 0.095 ng/mL 04/21/20 15:21 NT-Pro-B Natriuret Pep 45244 pg/mL (<450) H 04/21/20 15:21 Total Protein 6.7 g/dL (6.3-8.2) 04/21/20 15:21 Albumin 3.4 g/dL (3.5-5.0) L 04/21/20 15:21 Urine Color YELLOW 04/21/20 16:21 Urine Appearance CLOUDY 04/21/20 16:21 Urine pH 5.0 (5.0-9.0) 04/21/20 16:21 Ur Specific [place] 1.017 04/21/20 16:21 Urine Protein >=500 mg/dL (NEGATIVE) H 04/21/20 16:21 Urine Glucose (UA) NEGATIVE mg/dL (NEGATIVE) 04/21/20 16:21 Urine Ketones NEGATIVE mg/dL (NEGATIVE) 04/21/20 16:21 Urine Blood NEGATIVE (NEGATIVE) 04/21/20 16:21 Urine Nitrite NEGATIVE (NEGATIVE) 04/21/20 16:21 Urine Bilirubin NEGATIVE (NEGATIVE) 04/21/20 16:21 Urine Urobilinogen NEGATIVE mg/dL (<2.0) 04/21/20 16:21 Ur Leukocyte Esterase NEGATIVE (NEGATIVE) 04/21/20 16:21 Urine WBC (Auto) 4 /HPF 04/21/20 16:21 Urine RBC (Auto) 1 /HPF 04/21/20 16:21 U Hyaline Cast (Auto) 1 /LPF 04/21/20 16:21 Urine Bacteria (Auto) TRACE /HPF 04/21/20 16:21 Squamous Epi Cells Auto 3 /HPF 04/21/20 16:21 Amorphous Sediment Auto TRACE /HPF 04/21/20 16:21 Urine Mucus (Auto) RARE /LPF 04/21/20 16:21 Urine Ascorbic Acid 40 (NEGATIVE) H 04/21/20 16:21 04/21/20 15:21 Troponin I 0.095 NT-Pro-B Natriuret Pep [id number] H Impressions: Chest X-Ray 04/21/20 15:40 IMPRESSION: Findings suggestive of CHF with interstitial edema and small bilateral effusions. Left lower lobe consolidation possibly atelectasis, asymmetric edema or superimposed airspace disease. Plan Plan of Treatment: Discharged to [facility], where the patient is an established resident, with hospice/comfort care services. Time Spent: Greater than 30 Minutes Stroke Is this a Stroke Patient?: No Acute Heart Failure - Is this a Heart Failure Patient?: No LVEF - Reason: Hospice Anticoagulant Therapy Reason - Other: Hospice Beta Mert Reason - Other: Hospice ARNI Reason - Other: Hospice ARB Reason - Other: Hospice Aldosterone Antagonist Reason - Other: Hospice
== END 2020-04-23 19:20 | DRG 189 ==
LOC: ER 15:20 → EH 22:50 → 3N 04-22 02:40
PROVIDERS: ADMIT Internal Medicine; ATTEND Registered Nurse
DX: J96.01 Acute respiratory failure with hypoxia (principal); I48.20 Chronic atrial fibrillation, unspecified; I13.0 Hypertensive heart and chronic kidney disease with heart failure and stage 1 through stage 4 chronic kidney disease, or unspecified chronic kidney disease; N18.4 Chronic kidney disease, stage 4 (severe); E87.2 Acidosis; N17.9 Acute kidney failure, unspecified; Z66 Do not resuscitate; E03.9 Hypothyroidism, unspecified; D63.1 Anemia in chronic kidney disease; I50.9 Heart failure, unspecified; F03.90 Unspecified dementia, unspecified severity, without behavioral disturbance, psychotic disturbance, mood disturbance, and anxiety; Z79.01 Long term (current) use of anticoagulants; Z79.51 Long term (current) use of inhaled steroids; Z79.899 Other long term (current) drug therapy
CPT/HCPCS: 36415; 71045; 80048; 81001; 82550; 82803; 82962; 83880; 84484; 85025; 87070; 93005; 93010; 94660; 99291; J0360; J1644; J1940; J7620